=== PATIENT | male | born 1955 | race Caucasian/White ===

== ENCOUNTER 2018-09-18 08:38 | Outpatient (CLI) | payer MEDICARE | END 2018-09-18 08:39 | disposition home or self-care (01) | LOC: CP 08:38 | PROVIDERS: ATTEND Internal Medicine Critical Care Medicine | DX: R06.00 Dyspnea, unspecified (principal) | CPT/HCPCS: 94060; 94727; 94729 ==

== ENCOUNTER 2018-10-12 20:30 | Outpatient (CLI) | payer MEDICARE | END 2018-10-12 20:31 | disposition home or self-care (01) | LOC: SLEEPLAB 20:30 | PROVIDERS: ATTEND Internal Medicine Critical Care Medicine | DX: G47.33 Obstructive sleep apnea (adult) (pediatric) (principal); I11.9 Hypertensive heart disease without heart failure; R06.83 Snoring; G47.00 Insomnia, unspecified; G47.10 Hypersomnia, unspecified; I25.10 Atherosclerotic heart disease of native coronary artery without angina pectoris | CPT/HCPCS: 95811 ==

== ENCOUNTER 2018-12-14 22:40 | Emergency (ER) | payer MEDICARE ==
[2018-12-14] MEDS ORDERED: Proparacaine 0.5% Opth 15 ML BOT ONE (23:03)
[2018-12-14] MEDS ORDERED: Fluorescein Opthalmic Strip ONE (23:03)
== END 2018-12-14 23:18 | disposition home or self-care (01) ==
LOC: SCSER 22:40
DX: B02.9 Zoster without complications (principal); I25.10 Atherosclerotic heart disease of native coronary artery without angina pectoris; E78.5 Hyperlipidemia, unspecified; I10 Essential (primary) hypertension; F32.9 Major depressive disorder, single episode, unspecified; Z87.891 Personal history of nicotine dependence; Z79.899 Other long term (current) drug therapy; Z79.82 Long term (current) use of aspirin
CPT/HCPCS: 99283

== ENCOUNTER 2019-02-04 21:51 | Emergency (ER) | payer MEDICARE ==
[2019-02-04 22:29] LABS: #Basophils 0.1 thou/uL (0.0-0.2); #Eosinphils 0.2 thou/uL (0.0-0.7); #Lymphocytes 2.1 thou/uL (1.20-3.40); #Monocytes 0.4 thou/uL (0.11-0.59); #Neutrophils 6.6 thou/uL (1.40-6.50); %Basophils 0.9 % (0.0-1.0); %Eosinophils 2.4 % (0.0-10.0); %Monocytes 4.6 % (0.0-10.0); %Neutrophils 70.1 % (42.0-75.0); Hemoglobin 14.4 g/dL (14.0-18.0); Mean Corpuscular HGB CONC 34.8 g/dL (32.0-36.0); Mean Corpuscular Hemoglobin 33.4 pg (27.0-31.0); Mean Corpuscular Volume 95.9 fL (78.0-98.0); Mean Platelet Volume 6.4 fL (7.4-10.4); Platelet Count 158 thou/uL (130-400); RBC Distribution Width 12.9 % (11.5-14.5); White Blood Cell (WBC) Count 9.4 thou/uL (4.8-10.8)
[2019-02-04 22:43] LABS: ALT (SGPT) 19 U/L (8-55); AST (SGOT) 19 U/L (5-34); Albumin 3.8 g/dL (3.4-4.8); Alkaline Phosphatase 63 U/L (40-150); Anion Gap 14 mmol/L (10-20); BUN (Urea Nitrogen) 16 mg/dL (8.4-25.7); Bilirubin, Total 0.5 mg/dL (0.2-1.2); Calc. Creatinine Clearance 0 mL/min (70-130); Calcium 9.4 mg/dL (7.8-10.44); Carbon Dioxide 25 mmol/L (23-31); Chloride 103 mmol/L (98-107); Estimated GFR-MDRD 57; Globulin 3.7 g/dL (2.4-3.5); Glucose 127 mg/dL (80-115); Potassium 3.3 mmol/L (3.5-5.1); Protein, Total 7.5 g/dL (5.8-8.1); Sodium 139 mmol/L (136-145)
== END 2019-02-04 23:14 | disposition home or self-care (01) ==
LOC: SCSER 21:51
DX: R21 Rash and other nonspecific skin eruption (principal); I25.10 Atherosclerotic heart disease of native coronary artery without angina pectoris; E78.5 Hyperlipidemia, unspecified; I10 Essential (primary) hypertension; F32.9 Major depressive disorder, single episode, unspecified; Z87.891 Personal history of nicotine dependence; Z79.899 Other long term (current) drug therapy
CPT/HCPCS: 36415; 80053; 85025; 99283

== ENCOUNTER 2019-03-11 15:33 | Inpatient (IN) | payer MEDICARE ==
[2019-03-11 16:08] LABS: #Basophils 0.1 thou/uL (0.0-0.2); #Eosinphils 0.1 thou/uL (0.0-0.7); #Lymphocytes 0.7 thou/uL (1.20-3.40); #Monocytes 0.5 thou/uL (0.11-0.59); #Neutrophils 10.9 thou/uL (1.40-6.50); %Basophils 0.5 % (0.0-1.0); %Eosinophils 1.2 % (0.0-10.0); %Lymphocytes 5.2 % (21.0-51.0); %Monocytes 4.3 % (0.0-10.0); %Neutrophils 88.8 % (42.0-75.0); Hemoglobin 15.4 g/dL (14.0-18.0); Mean Corpuscular HGB CONC 33.6 g/dL (32.0-36.0); Mean Corpuscular Volume 98.3 fL (78.0-98.0); Mean Platelet Volume 7.3 fL (7.4-10.4); Platelet Count 162 thou/uL (130-400); Red Blood Cell (RBC) Count 4.67 mill/uL (4.70-6.10); White Blood Cell (WBC) Count 12.3 thou/uL (4.8-10.8)
--- NOTE | 2019-03-11 16:16 | RAD ---
RADIOGRAPH CHEST 1 VIEW: DATE: 03/11/2019 HISTORY: 63-year-old male with cough, fever, and chest pain FINDINGS: There is cardiomegaly. There is no evidence of airspace density, pulmonary edema, or pneumothorax. Th e lateral costophrenic angles are not effaced. Sternotomy wires. IMPRESSION: 1) No acute pulmonary findings. 2) cardiomegaly without congestive heart failure. 3) evidence of previous open-heart surgery.
[2019-03-11 16:23] LABS: ALT (SGPT) 26 U/L (8-55); AST (SGOT) 24 U/L (5-34); Albumin 4.1 g/dL (3.4-4.8); Alkaline Phosphatase 72 U/L (40-150); Anion Gap 16 mmol/L (10-20); BUN (Urea Nitrogen) 19 mg/dL (8.4-25.7); Bilirubin, Total 0.7 mg/dL (0.2-1.2); Calc. Creatinine Clearance 0 mL/min (70-130); Calcium 9.5 mg/dL (7.8-10.44); Carbon Dioxide 24 mmol/L (23-31); Chloride 101 mmol/L (98-107); Estimated GFR-MDRD 56; Globulin 4.1 g/dL (2.4-3.5); Glucose 113 mg/dL (80-115); Potassium 3.4 mmol/L (3.5-5.1); Protein, Total 8.2 g/dL (5.8-8.1); Sodium 138 mmol/L (136-145)
[2019-03-11 16:51] LABS: Bilirubin Negative (Negative); Blood, Urine Small (Negative); Clarity Clear (Clear); Glucose, Urine (Dipstick) Negative (Negative); Leukocyte Negative (Negative); Nitrite Negative (Negative); Protein, Urine (Dipstick) Negative (Neg-Trace); Urobilinogen 0.2 mg/dL (Less than 2)
[2019-03-11 16:59] LABS: Bacteria/HPF None Seen HPF (None Seen); Squamous Epithelial 0-3 HPF (0-3); WBC/HPF 0-3 HPF (0-3)
[2019-03-11] MEDS ORDERED: cefTRIAXone\\ROCEPHIN 2 GM VIAL ONE (16:59)
[2019-03-11] MEDS ORDERED: Azithromycin 500 MG VIAL ONE (16:59)
[2019-03-11] MEDS ORDERED: Sodium Chloride 0.9% 100 ML ONE (16:59)
[2019-03-11] MEDS ORDERED: Ketorolac Tromethamine 30 MG/ML VIAL ONE (17:17)
[2019-03-11] MEDS ORDERED: Ondansetron PF 4 MG/2 ML Vial ONE (17:33)
[2019-03-11 18:48] VITALS: BMI 38.1
[2019-03-11] MEDS ORDERED: Sodium Chloride 0.9% 1,000 ML IV SCH (19:30)
[2019-03-11] MEDS ORDERED: Senokot S 8.6-50 MG TAB PO PRN (20:47)
[2019-03-11] MEDS ORDERED: Loperamide HCl 2 MG CAP PO PRN ×2 (20:47)
[2019-03-11 20:58] LABS: Lactic Acid 1.8 mmol/L (0.5-2.2)
[2019-03-11] MEDS: Pramipexole Di-HCl 0.25 MG TAB PO SCH (21:21)
[2019-03-11] MEDS: Aspirin Chewable 81 MG TAB PO SCH (21:22)
[2019-03-11] MEDS: Famotidine 20 MG TAB PO SCH (21:22)
[2019-03-11] MEDS: Temazepam 15 MG CAP PO SCH (21:22)
[2019-03-11] MEDS: Acetaminophen 325 MG TAB PO PRN (21:22)
[2019-03-11] MEDS: Lactated Ringer's 1,000 ML IV SCH (23:05)
--- NOTE | 2019-03-11 23:24 | PDOC.FPRHP ---
- History of Present Illness Chief Complaint: Sepsis History of Present Illness: Pt is a 63 yo M with history of HLD, HTN, COPD, and MALCOM who presents with fever of 1 day. He said he started feeling bad yesterday night with fever, chills, and nausea. He woke up this morning and was having some SOB and edema. Around 2: 40 in the afternoon his daughter checked his temp, which was 102.2. She then took him up to the ER. They returned from a cruise to [place] this past Saturday. Saturday e visit with a relative who was recently discharged from the hospital after being treated for Strep bacteremia. He finished his relative finished their last dose of Abx today. ED Course: He was seen at an outsided ER and given Tylenol and Ibuprofen and temp increased to 102.9. Before transfer, he received Azithromycin and Rocephin. As well as, zofran for the nausea. - Allergies/Adverse Reactions Allergies Allergy/AdvReac Type Severity Reaction Status Date / Time lisinopril Allergy Intermediate Verified 03/11/19 19:20 morphine Allergy Intermediate Rash Verified 03/11/19 19:20 - Home Medications Medication Instructions Recorded Confirmed Type Allopurinol 300 mg PO DAILY 03/11/19 03/11/19 History Amlodipine [Norvasc] 5 mg PO DAILY 03/11/19 03/11/19 History Aspirin [Children's Aspirin] 81 mg PO HS 03/11/19 03/11/19 History Carvedilol [Coreg] 25 mg PO BID 03/11/19 03/11/19 History Clopidogrel Bisulfate [Plavix] 75 mg PO DAILY 03/11/19 03/11/19 History Ezetimibe [Zetia] 10 mg PO HS 03/11/19 03/11/19 History Hydrochlorothiazide 25 mg PO DAILY 03/11/19 03/11/19 History Pitavastatin Calcium [Livalo] 2 mg PO HS 03/11/19 03/11/19 History Potassium 99 mg PO DAILY 03/11/19 03/11/19 History Pramipexole Di-HCl [Pramipexole ER] 0.75 mg PO HS 03/11/19 03/11/19 History Temazepam [Restoril] 15 mg PO HS 03/11/19 03/11/19 History levOCARNitine Tartrate 500 mg PO HS 03/11/19 03/11/19 History [L-Carnitine] - History PMHx: HLD, Gout, PVD, Restless leg, HTN, COPD, MALCOM PSHx: Stents placed in leg (06/07), Stents placed in neck (06/08, 07/08), Brain surgery at 17 FHx: Non-contributory Social: He smoked 15 years ago for about 6-7 years 2PPD. He rarely drinks and no recreational drugs. - Review of Systems General: reports: fever/chills, night sweats, fatigue Eyes: denies: vision changes ENT: denies: nasal congestion, rhinorrhea Respiratory: reports: shortness of breath. denies: cough Cardiovascular: reports: edema. denies: chest pain Gastrointestinal: reports: nausea. denies: vomiting, diarrhea Genitourinary: denies: dysuria, polyuria Skin: denies: rashes, itching Musculoskeletal: denies: pain Neurological: reports: weakness - Vital signs BP: 99/62 HR: 108 RR: 20 Tmax: 100.1 Pox: 93% on RA Wt: 120 kg - Physical Exam Constitutional: NAD, awake, alert and oriented HEENT: normocephalic and atraumatic, PERRLA, EOMI, MMM, oropharynx clear Neck: supple, no LAD Chest: no-tender to palpation Heart: RRR, normal S1/S2, pulses present Lungs: other (In some respiratory distress. Decreased breath sounds throughout.) Abdomen: soft, non-tender, bowel sounds present Musculoskeletal: normal structure, normal tone Neurological: no focal deficit, CN II-XII intact Skin: no rash/lesions Heme/Lymphatic: no unusual bruising or bleeding Psychiatric: normal mood and affect FMR H&P: Results - Labs Result Diagrams: 03/12/19 05:06 03/12/19 05:06 Lab results: WBC 12.3 thou/uL (4.8-10.8) H 03/11/19 16:00 Hgb 15.4 g/dL (14.0-18.0) 03/11/19 16:00 Hct 45.9 % (42.0-52.0) 03/11/19 16:00 MCV 98.3 fL (78.0-98.0) H 03/11/19 16:00 Plt Count 162 thou/uL (130-400) 03/11/19 16:00 Neutrophils % 88.8 % (42.0-75.0) H 03/11/19 16:00 Sodium 138 mmol/L (136-145) 03/11/19 16:00 Potassium 3.4 mmol/L (3.5-5.1) L 03/11/19 16:00 Chloride 101 mmol/L (98-107) 03/11/19 16:00 Carbon Dioxide 24 mmol/L (23-31) 03/11/19 16:00 BUN 19 mg/dL (8.4-25.7) 03/11/19 16:00 Creatinine 1.29 mg/dL (0.7-1.3) 03/11/19 16:00 Glucose 113 mg/dL (80-115) 03/11/19 16:00 Lactic Acid 1.7 mmol/L (0.5-2.2) 03/11/19 22:27 Calcium 9.5 mg/dL (7.8-10.44) 03/11/19 16:00 Total Bilirubin 0.7 mg/dL (0.2-1.2) 03/11/19 16:00 AST 24 U/L (5-34) 03/11/19 16:00 ALT 26 U/L (8-55) 03/11/19 16:00 Alkaline Phosphatase 72 U/L (40-150) 03/11/19 16:00 Serum Total Protein 8.2 g/dL (5.8-8.1) H 03/11/19 16:00 Albumin 4.1 g/dL (3.4-4.8) 03/11/19 16:00 Urine Ketones Negative mg/dL (Negative) 03/11/19 16:41 Urine Blood Small (Negative) A 03/11/19 16:41 Urine Nitrite Negative (Negative) 03/11/19 16:41 Ur Leukocyte Esterase Negative (Negative) 03/11/19 16:41 Urine RBC 4-6 HPF (0-3) A 03/11/19 16:41 Urine WBC 0-3 HPF (0-3) 03/11/19 16:41 Ur Squamous Epith Cells 0-3 HPF (0-3) 03/11/19 16:41 Urine Bacteria None Seen HPF (None Seen) 03/11/19 16:41 FMR H&P: A/P - Problem List (1) Sepsis Current Visit: Yes Status: Acute Code(s): A41.9 - SEPSIS, UNSPECIFIED ORGANISM (2) Restless leg Current Visit: Yes Status: Acute (3) HTN (hypertension) Current Visit: Yes Status: Acute Code(s): I10 - ESSENTIAL (PRIMARY) HYPERTENSION - Plan Pt is a 63 yo M with history of HLD, HTN, COPD, and MALCOM who presents with fever of 1 day. 1. Sepsis TMax: 102.9 * BCx and UCx obtained * WBC: 12.3 * Continued Azithro and Rocephin * Trending lactate 2. Restless Leg Uncomfortable at presentation * Continued home pramipexole and Tenazepam 3. HTN: BP: 99/62 * Holding home meds due to hypotension Diet: Regular Code Status: Full DVT Prophylaxis: Lovenox Dispo: Inpt, will need to identify source of sepsis and treat. FMR H&P: Upper Level - Pertinent history 63 yo M w/ PMH of HTN, CAD, COPD, MALCOM, gout, CHF presents for 1 day history of fever. Pt reports associated dry cough. Denies NVDC. No cp, sob, wheezing. Pt denies skin changes, rashes. Pt does have history of shingles most recent episode was approx 2 months ago. No residual pain. Also reports most recent gout flair involved b/l LE and was approx 2 weeks ago. Otherwise, pt has no complaints. - Pertinent findings ROS: As above PE: Gen: NAD, pt laying in bed HEENT: NCAT, PERRLA, EOMI CV: Tachycardic, RR, No MRG Resp: Lungs CTA bl Abd: Soft NTND bsx4 Neuro: No focal deifcit Extremities: edema b/l LE Skin: No rashes, erythema - Plan Date/Time: 03/11/19 2492 ICelso DO, have evaluated this patient and agree with findings/ plan as outlined by internet security specialist resident. Pertinent changes/additions are listed here. 1) Sepsis likely 2/2 atypical pna - given symptoms and recent sick contact exposure with bronchitis - Procal .61 - elevated WBC - cont rocephin and azithromycin 2) HTN: - hold medications 3) Gout: - cont home meds 4) MALCOM: - nightly CPAP Dispo: Stable, will admit to IP and continue IV abx. COnt IVF for now, ron jewell later tomorrow if pt pulse rate declines and BP improves. Await cultures. PPX: Lovenox PCP: Noah Colónum - Attending - Attending Attestation Date/Time: 03/12/19 0161 I personally evaluated the patient and discussed the management with Dr. Skinner and Jose L. I agree with and repeated the History, Examination, Assessment and Plan documented above with any addition or exceptions noted below. No firm source. Continue antibiotics and await cultures.
[2019-03-12 05:24] LABS: #Eosinphils 0.1 thou/uL (0.0-0.7); #Lymphocytes 0.6 thou/uL (1.20-3.40); #Monocytes 0.6 thou/uL (0.11-0.59); #Neutrophils 7.7 thou/uL (1.40-6.50); %Basophils 0.2 % (0.0-1.0); %Eosinophils 0.7 % (0.0-10.0); %Lymphocytes 6.6 % (21.0-51.0); %Monocytes 6.5 % (0.0-10.0); Hemoglobin 13.4 g/dL (14.0-18.0); Mean Corpuscular HGB CONC 33.2 g/dL (32.0-36.0); Mean Corpuscular Hemoglobin 32.8 pg (27.0-31.0); Mean Corpuscular Volume 98.9 fL (78.0-98.0); Mean Platelet Volume 7.4 fL (7.4-10.4); Platelet Count 124 thou/uL (130-400); RBC Distribution Width 13.5 % (11.5-14.5); Red Blood Cell (RBC) Count 4.07 mill/uL (4.70-6.10)
[2019-03-12 05:54] LABS: ALT (SGPT) 20 U/L (8-55); AST (SGOT) 22 U/L (5-34); Albumin 3.3 g/dL (3.4-4.8); Alkaline Phosphatase 52 U/L (40-150); Anion Gap 14 mmol/L (10-20); BUN (Urea Nitrogen) 25 mg/dL (8.4-25.7); Bilirubin, Total 0.6 mg/dL (0.2-1.2); Calc. Creatinine Clearance 100 mL/min (70-130); Calcium 7.9 mg/dL (7.8-10.44); Carbon Dioxide 20 mmol/L (23-31); Chloride 105 mmol/L (98-107); Estimated GFR-MDRD 56; Globulin 3.1 g/dL (2.4-3.5); Glucose 132 mg/dL (80-115); Protein, Total 6.4 g/dL (5.8-8.1); Sodium 136 mmol/L (136-145)
[2019-03-12 05:59] LABS: Potassium 2.8 mmol/L (3.5-5.1)
[2019-03-12] MEDS ORDERED: Potassium Chloride 20 MEQ TAB PO SCH ×2 (06:15→12:00)
[2019-03-12] MEDS: Lactated Ringer's 1,000 ML IV SCH ×3 (06:50→22:24)
[2019-03-12] MEDS ORDERED: Magnesium Sulfate 2 GM in Sodium Chloride 0.9% 100 ML IVPB SCH (07:00)
[2019-03-12] MEDS ORDERED: Magnesium 2 GM/50 ML 2 GM in Premix Bag 1 BAG IVPB SCH (07:15)
[2019-03-12] MEDS: Famotidine 20 MG TAB PO SCH ×2 (08:09→20:48)
[2019-03-12] MEDS: Clopidogrel Bisulfate 75 MG TAB PO SCH (08:09)
[2019-03-12] MEDS: Allopurinol 300 MG TAB PO SCH (08:09)
[2019-03-12] MEDS: Potassium Chloride 8 MEQ TAB PO SCH (08:09)
--- NOTE | 2019-03-12 08:32 | PDOC.FM ---
- Subjective Subjective: reports feeling "much much better". Reports this morning that his main symptoms have been subjective fevers, and abdominal discomfort. he has also had a mild cough [place]. since admission pt has had 2-3 episodes of diarrhea. - Objective MAR Reviewed: Yes Vital Signs & Weight: Vital Signs (12 hours) Temp Pulse Resp BP Pulse Ox 03/12/19 07:54 98.3 F 87 16 104/66 96 03/12/19 05:26 99.2 F 96 20 112/66 92 L 03/11/19 23:09 99.5 F 95 20 102/64 90 L Weight Weight 120.519 kg I&O: 03/11/19 03/12/19 03/13/19 06:59 06:59 06:59 Intake Total 1200 Balance 1200 Result Diagrams: 03/12/19 05:06 03/12/19 05:06 Phys Exam - Physical Examination Constitutional: NAD HEENT: moist MMs, sclera anicteric Neck: supple, full ROM Respiratory: no wheezing, clear to auscultation bilateral Cardiovascular: RRR, no significant murmur Gastrointestinal: soft, non-tender, no distention, positive bowel sounds Musculoskeletal: pulses present Neurological: normal sensation, moves all 4 limbs Psychiatric: normal affect, A&O x 3 Skin: no rash, normal turgor, cap refill <2 seconds Dx/Plan (1) Sepsis Code(s): A41.9 - SEPSIS, UNSPECIFIED ORGANISM Status: Acute (2) CAD (coronary artery disease) Code(s): I25.10 - ATHSCL HEART DISEASE OF [place] CORONARY ARTERY W/O ANG PCTRS Status: Acute (3) MALCOM (obstructive sleep apnea) Code(s): G47.33 - OBSTRUCTIVE SLEEP APNEA (ADULT) (PEDIATRIC) Status: Acute (4) HLD (hyperlipidemia) Code(s): E78.5 - HYPERLIPIDEMIA, UNSPECIFIED Status: Acute (5) Gout Code(s): M10.9 - GOUT, UNSPECIFIED Status: Acute (6) HTN (hypertension) Code(s): I10 - ESSENTIAL (PRIMARY) HYPERTENSION Status: Acute (7) Restless leg Status: Acute - Plan Plan: sepsis, likely 2/2 viral gastroenteritis A- source not obvious however considering pts recent travel hx on cruise and abdominal discomfort/diarrhea viral gastroenteritis is most likely. Pt also has dry cough with no congestion but CXR shows no acute process. procal is borderline low and LA x3 has been unimpressive. SIRS positive may be partially attributed to some hypovolemia on presentation as well. P- transition to PO ABX -continue LR 125ml/hr -f/u BCx -c.diff, fecal lactoferrin, norovirus, rotavirus CAD s/p CABG A- stable, pt is currently on plavix, statin, coreg, thiazide, and ASA P- continue home meds, will only restart BP meds as tolerated HTN -hold home meds until pt demonstrates multiple normal BPs Hypokalemia -replace as necessary HLD, Gout, Restless leg syndrome, PVD, COPD, MALCOM -stable, continue home meds and CPAP CODE: FULL DVT ppx: home plavix Addendum - Attending - Attending Attestation Date/Time: 03/12/19 5533 I personally evaluated the patient and discussed the management with Dr. Farrell. I agree with the History, Examination, Assessment and Plan documented above with any addition or exceptions noted below. Feeling better. Tmax 100.8. Diarrhea noted, stool studies initiated. Hypokalemia, Hypomagnesemia to be replaced. SIRS improved. Continue Eval and mgt.
[2019-03-12] MEDS ORDERED: Enoxaparin Sodium 30 MG/0.3 ML SYRINGE SC SCH (09:00)
[2019-03-12] MEDS ORDERED: Amlodipine 5 MG TAB PO SCH (09:00)
[2019-03-12] MEDS ORDERED: cefTRIAXone\\ROCEPHIN 1 GM in Sodium Chloride 0.9% 100 ML IVPB SCH (16:00)
[2019-03-12] MEDS ORDERED: Azithromycin 500 MG in Sodium Chloride 0.9% 250 ML 250 ML IVPB SCH (17:00)
[2019-03-12] MEDS: Aspirin Chewable 81 MG TAB PO SCH (20:48)
[2019-03-12] MEDS: Pramipexole Di-HCl 0.25 MG TAB PO SCH (20:49)
[2019-03-12] MEDS: Acetaminophen 325 MG TAB PO PRN (20:50)
[2019-03-12] MEDS: Temazepam 15 MG CAP PO SCH (20:55)
[2019-03-12] MEDS ORDERED: Ezetimibe 10 MG TAB PO SCH (21:00)
[2019-03-12] MEDS ORDERED: Atorvastatin Calcium 10 MG TAB PO SCH (21:00)
[2019-03-12] MEDS ORDERED: Non-Formulary Item 1 EACH (Pitavastatin Calcium 2 MG) PO SCH (21:00)
--- NOTE | 2019-03-13 06:56 | PDOC.FM ---
- Subjective Subjective: Pt continues to feel improved, denies subjective fevers/chills, denies diarhea, endorses continued but improved abdominal discomfort. - Objective Vital Signs & Weight: Weight Weight 120.519 kg I&O: 03/11/19 03/12/19 03/13/19 06:59 06:59 06:59 Intake Total 1200 2850 Balance 1200 2850 Result Diagrams: 03/13/19 06:35 03/13/19 06:35 Phys Exam - Physical Examination Constitutional: NAD HEENT: moist MMs, sclera anicteric Neck: no JVD, supple Respiratory: no wheezing, clear to auscultation bilateral Cardiovascular: RRR, no significant murmur Gastrointestinal: soft, non-tender Musculoskeletal: no edema, pulses present Neurological: normal sensation, moves all 4 limbs Psychiatric: normal affect, A&O x 3 Skin: no rash, normal turgor Dx/Plan (1) Sepsis Code(s): A41.9 - SEPSIS, UNSPECIFIED ORGANISM Status: Acute (2) CAD (coronary artery disease) Code(s): I25.10 - ATHSCL HEART DISEASE OF [place] CORONARY ARTERY W/O ANG PCTRS Status: Acute (3) MALCOM (obstructive sleep apnea) Code(s): G47.33 - OBSTRUCTIVE SLEEP APNEA (ADULT) (PEDIATRIC) Status: Acute (4) HLD (hyperlipidemia) Code(s): E78.5 - HYPERLIPIDEMIA, UNSPECIFIED Status: Acute (5) Gout Code(s): M10.9 - GOUT, UNSPECIFIED Status: Acute (6) HTN (hypertension) Code(s): I10 - ESSENTIAL (PRIMARY) HYPERTENSION Status: Acute (7) Restless leg Status: Acute - Plan Plan: sepsis, likely 2/2 viral gastroenteritis A- source not obvious however considering pts recent travel hx on cruise and abdominal discomfort/diarrhea viral gastroenteritis is most likely. Pt also has dry cough with no congestion but CXR shows no acute process. procal is borderline low and LA x3 has been unimpressive. SIRS positive may be partially attributed to some hypovolemia on presentation as well. Negative rotavirus, c.diff, and fecal lactoferrin P- continue azithromycin and rocephin, will DC after BCx show NG@48hrs -continue IVF -f/u BCx -f/u norovirus CAD s/p CABG A- stable, pt is currently on plavix, statin, coreg, thiazide, and ASA P- continue home meds, will only restart BP meds as tolerated HTN -hold home meds until pt demonstrates multiple normal BPs Hypokalemia -replace as necessary HLD, Gout, Restless leg syndrome, PVD, COPD, MALCOM -stable, continue home meds and CPAP CODE: FULL DVT ppx: home plavix dispo: likely home today Addendum - Attending - Attending Attestation Date/Time: 03/13/19 1021 I personally evaluated the patient and discussed the management with Dr. Farrell. I agree with the History, Examination, Assessment and Plan documented above with any addition or exceptions noted below. Sx's resolved. Vitals stable stool studies negative except Lactoferrin. November d/ c home, f/u final c&S as op.
[2019-03-13 07:17] LABS: #Eosinphils 0.1 thou/uL (0.0-0.7); #Lymphocytes 1.3 thou/uL (1.20-3.40); #Monocytes 0.8 thou/uL (0.11-0.59); #Neutrophils 3.9 thou/uL (1.40-6.50); %Basophils 0.3 % (0.0-1.0); %Eosinophils 2.1 % (0.0-10.0); %Lymphocytes 20.8 % (21.0-51.0); %Monocytes 12.4 % (0.0-10.0); %Neutrophils 64.4 % (42.0-75.0); Hemoglobin 12.5 g/dL (14.0-18.0); Mean Corpuscular HGB CONC 32.7 g/dL (32.0-36.0); Mean Corpuscular Hemoglobin 33.2 pg (27.0-31.0); Mean Platelet Volume 7.5 fL (7.4-10.4); Platelet Count 109 thou/uL (130-400); RBC Distribution Width 13.5 % (11.5-14.5); Red Blood Cell (RBC) Count 3.77 mill/uL (4.70-6.10); White Blood Cell (WBC) Count 6.1 thou/uL (4.8-10.8)
[2019-03-13 07:34] LABS: ALT (SGPT) 19 U/L (8-55); AST (SGOT) 25 U/L (5-34); Alkaline Phosphatase 45 U/L (40-150); Anion Gap 10 mmol/L (10-20); BUN (Urea Nitrogen) 11 mg/dL (8.4-25.7); Bilirubin, Total 0.4 mg/dL (0.2-1.2); Calc. Creatinine Clearance 135 mL/min (70-130); Carbon Dioxide 23 mmol/L (23-31); Chloride 105 mmol/L (98-107); Estimated GFR-MDRD 78; Globulin 2.8 g/dL (2.4-3.5); Glucose 95 mg/dL (80-115); Magnesium 1.8 mg/dL (1.6-2.6); Potassium 3.2 mmol/L (3.5-5.1); Protein, Total 5.8 g/dL (5.8-8.1); Sodium 135 mmol/L (136-145)
[2019-03-13] MEDS: Allopurinol 300 MG TAB PO SCH (08:40)
[2019-03-13] MEDS: Lactated Ringer's 1,000 ML IV SCH (08:40)
[2019-03-13] MEDS: Potassium Chloride 8 MEQ TAB PO SCH (08:40)
[2019-03-13] MEDS: Famotidine 20 MG TAB PO SCH (08:40)
[2019-03-13] MEDS: Clopidogrel Bisulfate 75 MG TAB PO SCH (08:40)
[2019-03-13] MEDS ORDERED: Potassium Chloride 20 MEQ TAB PO SCH ×2 (11:15→11:45)
[2019-03-13 11:43] VITALS: BP 122/76; TEMP 98.1
--- NOTE | 2019-03-14 05:48 | DIS ---
DATE OF ADMISSION: 03/11/2019 DATE OF DISCHARGE: 03/13/2019 RESIDENT: Shaun Farrell MD ADMITTING ATTENDING: Aroldo Rico MD DISCHARGE ATTENDING: Shaun Young MD CONSULTS: None. PROCEDURES: On 03/11/2019, chest x-ray. Impression: No acute pulmonary findings, cardiomegaly without congestive heart failure, evidence of previous open-heart surgery. DISCHARGE MEDICATIONS: 1. Potassium 99 mg tablet p.o. daily resumed at home. 2. L-carnitine 500 mg p.o. at bedtime. 3. Aspirin 81 mg p.o. at bedtime. 4. Zetia 10 mg p.o. at bedtime. 5. Restoril 15 mg p.o. at bedtime. 6. Allopurinol 300 mg p.o. daily. 7. Pramipexole extended release 0.75 mg p.o. at bedtime. 8. Pitavastatin 2 mg p.o. at bedtime. 9. Amlodipine 5 mg p.o. daily. 10. Plavix 75 mg p.o. daily. 11. Carvedilol 25 mg p.o. b.i.d. The patient instructed to hold medication for that day if his systolic blood pressure at home is below 100. 12. Hydrochlorothiazide 25 mg p.o. daily, held until the patient is seen by PCP. DISCONTINUED MEDICATIONS: As listed above, hydrochlorothiazide 25 mg p.o. daily, held until the patient is seen by primary care provider. PRIMARY DIAGNOSIS: Sepsis secondary to viral gastroenteritis. SECONDARY DIAGNOSES: Coronary artery disease, status post coronary artery bypass grafting; hypertension; hypokalemia; hyperlipidemia; hypomagnesemia; gout; restless legs syndrome; peripheral vascular disease; chronic obstructive pulmonary disease; obstructive sleep apnea. HISTORY OF PRESENT ILLNESS/HOSPITAL COURSE: This is a 63-year-old male who presented to the ER with complaints of subjective fevers for 1 day. The patient also had abdominal pain, new-onset diarrhea x3. The patient was admitted as he was meeting SIRS criteria, and it was felt that gastroenteritis was the likely source of infection. Overall, the patient did well. He was started on a brief course of azithromycin and Rocephin, which were eventually discontinued as the patient was quite well-appearing and had no evidence of bacterial infection. Furthermore, it was reassuring that the patient had low procalcitonin and lactic acid and showed great improvement with IV fluids. Stool studies were positive for fecal lactoferrin, but negative for rotavirus. Considering the patient's quickly recovery, the patient was deemed stable for discharge and discharged home with plans to follow up with primary care provider, and the patient was also placed on a followup list to follow up on resulted 48-hour blood cultures and norovirus and stool cultures. DISPOSITION: Stable. DISCHARGE INSTRUCTIONS: Location: Home. Activity: As tolerated. Diet: Heart healthy. Followup with Dr. Diaz in 1 to 2 weeks. It should be noted that the patient's home hydrochlorothiazide dose was held as the patient had some borderline low blood pressures in hospital. The patient instructed to follow up with primary care physician for restarting home hydrochlorothiazide. Job ID: [id number]
[2019-03-16 14:09] LABS: Norovirus GI Negative (Negative); Norovirus GII Positive (Negative)
== END 2019-03-13 12:53 | disposition home or self-care (01) | DRG 872 ==
LOC: SCSER 15:33 → T4-B 18:29
PROVIDERS: ADMIT Emergency Medicine; ATTEND Emergency Medicine
DX: A41.89 Other specified sepsis (principal); I25.10 Atherosclerotic heart disease of native coronary artery without angina pectoris; E78.5 Hyperlipidemia, unspecified; E78.00 Pure hypercholesterolemia, unspecified; F32.9 Major depressive disorder, single episode, unspecified; I10 Essential (primary) hypertension; J44.9 Chronic obstructive pulmonary disease, unspecified; G47.33 Obstructive sleep apnea (adult) (pediatric); M10.9 Gout, unspecified; I73.9 Peripheral vascular disease, unspecified; G25.81 Restless legs syndrome; A08.4 Viral intestinal infection, unspecified; E87.6 Hypokalemia; E83.42 Hypomagnesemia; Z95.1 Presence of aortocoronary bypass graft; Z87.891 Personal history of nicotine dependence; Z88.6 Allergy status to analgesic agent; Z88.8 Allergy status to other drugs, medicaments and biological substances
CPT/HCPCS: 36415; 71045; 80053; 81003; 81015; 83605; 83630; 83735; 84145; 85025; 86403; 87040; 87045; 87046; 87081; 87324; 87430; 87449; 87798; 87804; 93005; 94760; 96361; 96365; 96367; 96375; J0456; J0696; J1650; J1885; J2405; J3475; J3490; J7050

== ENCOUNTER 2020-05-31 10:09 | Outpatient (CLI) | payer MEDICARE ==
--- NOTE | 2020-05-31 13:14 | PET ---
PET W CT Skull to Mid Thigh History: Solitary pulmonary nodule Comparison: CT angiogram chest May 16, 2020 Findings: PET CT from skull-mid thigh was performed after the intravenous administration 10.86 mCi F- 18 FDG. Similar size of the 2.8 cm in transverse dimension mass in the posterior basal segment right lower lo be with SUV max 8.9. No other FDG avid pulmonary nodule. No FDG avid or enlarged mediastinal lymph nodes. No pericardial effusion. No supraclavicular, axillary nor internal mammary adenopathy. Mildly FDG avid calcific tendinosis left rotator cuff. Non-FDG avid calcific tendinosis of the right rotator cuff. Calcific tendinosis is not suspicious for metastatic disease. 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 No cervical adenopathy. The adrenal glands are normal. No metastatic disease within the abdomen or pelvis. The liver, spleen, retroperitoneum are without en larged or FDG avid lymph nodes. No osseous metastatic disease. No rib fracture. Aortoiliac contour is normal. High-grade calcifications within both right and left iliac arteries wit h right external iliac arterial stent. Small fat containing periumbilical hernia. Diffuse hepatic steatosis. Impression: No significant growth of the 2.8 cm FDG avid right lower lobe posterior basal segment kelsey itary pulmonary nodule indicative of malignancy. No metastatic disease.
== END 2020-05-31 10:10 | disposition home or self-care (01) ==
LOC: PET 10:09
PROVIDERS: ATTEND Internal Medicine Critical Care Medicine
DX: R91.1 Solitary pulmonary nodule (principal)
CPT/HCPCS: 78815; A9552

== ENCOUNTER 2020-06-19 20:20 | Inpatient (IN) | payer MEDICARE ==
[2020-06-19] MEDS ORDERED: Fentanyl 100 MCG/2 ML VIAL ONE (20:32)
[2020-06-19] MEDS ORDERED: Midazolam HCl 5 mg/ml Vial ONE (20:36)
[2020-06-19 21:20] LABS: #Lymphocytes 0.4 thou/uL (1.20-3.40); #Monocytes 0.2 thou/uL (0.11-0.59); #Neutrophils 5.4 thou/uL (1.40-6.50); %Eosinophils 0.7 % (0.0-10.0); %Lymphocytes 6.2 % (21.0-51.0); %Monocytes 3.5 % (0.0-10.0); %Neutrophils 89.6 % (42.0-75.0); Hemoglobin 14.3 g/dL (14.0-18.0); Mean Corpuscular HGB CONC 34.2 g/dL (32.0-36.0); Mean Corpuscular Hemoglobin 34.7 pg (27.0-31.0); Platelet Count 103 thou/uL (130-400); Red Blood Cell (RBC) Count 4.13 mill/uL (4.70-6.10); White Blood Cell (WBC) Count 6.1 thou/uL (4.8-10.8)
[2020-06-19] MEDS ORDERED: Azithromycin 500 MG VIAL ONE (21:20)
[2020-06-19] MEDS ORDERED: Acetaminophen 650 MG Suppository ONE (21:20)
[2020-06-19] MEDS ORDERED: Cefepime 2 GM VIAL ONE (21:20)
[2020-06-19] MEDS ORDERED: Vancomycin 1 GM/200 ML BAG ONE (21:20)
[2020-06-19 21:40] LABS: ALT (SGPT) 23 U/L (8-55); AST (SGOT) 36 U/L (5-34); Albumin 3.3 g/dL (3.4-4.8); Alkaline Phosphatase 76 U/L (40-110); Anion Gap 14 mmol/L (10-20); BUN (Urea Nitrogen) 25 mg/dL (8.4-25.7); Bilirubin, Total 0.7 mg/dL (0.2-1.2); Calc. Creatinine Clearance 0 mL/min (70-130); Carbon Dioxide 21 mmol/L (23-31); Chloride 105 mmol/L (98-107); Globulin 3.4 g/dL (2.4-3.5); Glucose 132 mg/dL (80-115); Lipase 36 U/L (8-78); Potassium 4.4 mmol/L (3.5-5.1); Protein, Total 6.7 g/dL (5.8-8.1); Sodium 136 mmol/L (136-145)
[2020-06-19 21:51] LABS: Actual Bicarbonate (HCO3a) 20.5 mEq/L (22-28); Analyzer IN Cardio ER; Base Excess (BEa) -5.8 mEq/L (-2.0 to +3.0); CO2 Tension 43.2 mmHg (35.0-45.0); Calcium, Ionized (arterial) 1.12 mmol/L (1.12-1.30); Carboxyhemoglobin (COHb) 0.5 gm% (0.0-3.0); Hemoglobin (Hb) 14.6 g/dL (14.0-18.0); Potassium - ABG Lab 3.96 mmol/L (3.70-5.30); pH, Arterial 7.29 (7.35-7.45)
[2020-06-19 21:52] LABS: O2 Tension (PaO2), arterial 56.6 mmHg (> 80.0)
[2020-06-19 21:53] LABS: Puncture Site RRA
[2020-06-19] MEDS ORDERED: Dexamethasone 10 MG/ML VIAL ONE (21:55)
[2020-06-19 22:01] LABS: CKMB 3.3 ng/mL (0-6.6)
--- NOTE | 2020-06-19 22:18 | RAD ---
PORTABLE CHEST; Date: 06/19/2020 PROVIDED CLINICAL HISTORY: COVID-positive, respiratory insufficiency. FINDINGS: Comparison with 03/15/2020. The cardiac silhouette appears enlarged, which may be at least partially on the basis of portable chastity hnique. Endotracheal tube is noted, tip of which remains in the region of the thoracic inlet. Enteric catheter is noted, tip of which overlies left upper quadrant. Extensive bilateral air space disease. The supine nature of the examination is not sensitive for detection of pleural fluid or pneumothorax , without evidence for such. IMPRESSION: Diffuse bilateral air space disease, compatible with pneumonia in the appropriate clinical context. POS: TIFFANY
[2020-06-19 22:37] LABS: Bilirubin Negative (Negative); Blood, Urine Negative (Negative); Clarity Turbid (Clear); Glucose, Urine (Dipstick) Normal (Negative); Ketone, Urine Negative (Negative); Leukocyte Negative Leu/uL (Negative); Nitrite Negative (Negative); Protein, Urine (Dipstick) 300 mg/dL (Neg-Trace); Specific Gravity, Urine 1.036 (1.002-1.036); Squamous Epithelial 0-3 HPF (0-3); Urobilinogen Normal mg/dL (Less than 2)
[2020-06-19] MEDS ORDERED: Acetaminophen 650 MG Suppository PR PRN (22:37)
[2020-06-19] MEDS ORDERED: Ondansetron PF 4 MG/2 ML Vial IVP PRN (22:37)
[2020-06-19] MEDS ORDERED: Ondansetron ODT 4 MG TAB PO PRN (22:37)
--- NOTE | 2020-06-19 22:38 | PDOC.FPRHP ---
- History of Present Illness Chief Complaint: resp distress History of Present Illness: This is a 64yo M with PMH significant for CAD s/p CABG and stents who presents to the ER today for respiratory distress. He started having symptoms of COVID starting last Saturday or Saturday with worsening symptoms on . He has had alternating fever and chills with highest temperature at home being 102.7. He was swabbed on Saturday and resulted positive for COVID today. His daughter called EMS today for SOB and difficulty breathing. Home O2 sat was 70% at home on RA. He went to lie down and put on his CPAP and she went to check on him he was less responsive and repeat SpO2 was 60%. When EMS got there they tried CPAP but patient woke up more combative and was intubated in the field. Patient lives at home with his daughter. ED Course: NS 30ml/kg, Duoneb, lovenox, norepi, fentanyl, azithro 500mg IV, dexamethasone 10mg IV, vanc, tylenol, cefepime, midazolam - Allergies/Adverse Reactions Allergies Allergy/AdvReac Type Severity Reaction Status Date / Time lisinopril Allergy Intermediate Verified 06/20/20 00:31 morphine Allergy Intermediate Rash Verified 06/20/20 00:31 - Home Medications Medication Instructions Recorded Confirmed Type Allopurinol 300 mg PO DAILY 03/11/19 03/16/20 History Amlodipine [Norvasc] 5 mg PO DAILY 03/11/19 03/16/20 History Aspirin [Children's Aspirin] 81 mg PO HS 03/11/19 03/16/20 History Carvedilol [Coreg] 25 mg PO BID 03/11/19 03/16/20 History Ezetimibe [Zetia] 10 mg PO HS 03/11/19 03/16/20 History Pramipexole Di-HCl [Pramipexole ER] 0.75 mg PO HS 03/11/19 03/16/20 History Temazepam [Restoril] 15 mg PO HS 03/11/19 03/16/20 History Cilostazol 50 mg PO BIDPC 03/16/20 03/16/20 History hydrALAZINE [Apresoline] 25 mg PO DAILY 03/16/20 03/16/20 History Atorvastatin Calcium [Lipitor] 40 mg PO DAILY #30 tab 03/17/20 Rx Clopidogrel Bisulfate [Plavix] 75 mg PO DAILY #30 tab 03/17/20 Rx - History PMHx: CAD s/p CABG, HLD, macrocytosis, HTN PSHx: CABG, craniotomy in 1969, rotator cuff surgery FHx: non contributory Social: former smoker - quit 10 years ago, occasional drinker, no drug use - Review of Systems ROS unobtainable: due to endotracheal tube - Vital signs BP: 113/61 HR: 82-102 RR: 28-30 Tmax: Pox: 89-92% on ventilator Wt: 121kg - Physical Exam -Constitutional: awake, morbid obesity HEENT: normocephalic and atraumatic, PERRLA, EOMI, no scleral icterus, grossly normal hearing, MMM Neck: supple -Neck: ET and NG tube present Heart: RRR, normal S1/S2, no murmurs/rubs/gallops, pulses present -Lungs: diffuse rhonchi, exp wheeze L>R -Abdomen: central obesity, soft, normal BS -Neurological: responds to commands, opens eyes spontaneously, normal reflexes, responds to pain Skin: no rash/lesions, good turgor, capillary refill <2 seconds Heme/Lymphatic: no unusual bruising or bleeding, no purpura, no petechia FMR H&P: Results - Labs Result Diagrams: 06/19/20 21:02 06/19/20 21:02 Lab results: WBC 6.1 thou/uL (4.8-10.8) 06/19/20 21:02 Hgb 14.3 g/dL (14.0-18.0) 06/19/20 21:02 Hct 41.9 % (42.0-52.0) L 06/19/20 21:02 MCV 101.0 fL (78.0-98.0) H 06/19/20 21:02 Plt Count 103 thou/uL (130-400) L 06/19/20 21:02 Neutrophils % 89.6 % (42.0-75.0) H 06/19/20 21:02 ABG pH 7.29 (7.35-7.45) L 06/19/20 20:57 ABG pCO2 43.2 mmHg (35.0-45.0) 06/19/20 20:57 ABG pO2 56.6 mmHg (> 80.0) L* 06/19/20 20:57 Sodium 136 mmol/L (136-145) 06/19/20 21:02 Potassium 4.4 mmol/L (3.5-5.1) 06/19/20 21:02 Chloride 105 mmol/L (98-107) 06/19/20 21:02 Carbon Dioxide 21 mmol/L (23-31) L 06/19/20 21:02 BUN 25 mg/dL (8.4-25.7) 06/19/20 21:02 Creatinine 1.54 mg/dL (0.7-1.3) H 06/19/20 21:02 Glucose 132 mg/dL (80-115) H 06/19/20 21:02 Lactic Acid 1.1 mmol/L (0.5-2.2) 06/19/20 21:02 Calcium 8.0 mg/dL (7.8-10.44) 06/19/20 21:02 Total Bilirubin 0.7 mg/dL (0.2-1.2) 06/19/20 21:02 AST 36 U/L (5-34) H 06/19/20 21:02 ALT 23 U/L (8-55) 06/19/20 21:02 Alkaline Phosphatase 76 U/L (40-110) 06/19/20 21:02 CK-MB (CK-2) 3.3 ng/mL (0-6.6) 06/19/20 21:02 B-Natriuretic Peptide 32.7 pg/mL (0-100) 06/19/20 21:02 Serum Total Protein 6.7 g/dL (5.8-8.1) 06/19/20 21:02 Albumin 3.3 g/dL (3.4-4.8) L 06/19/20 21:02 Lipase 36 U/L (8-78) 06/19/20 21:02 - Radiology Interpretation Chest x-ray Status: image reviewed by me (diffuse bilateral air space disease, compatible with PNA; enlarged cardiac silhouette), report reviewed by me Other Status: report reviewed by me (CTA: no PE, extensive bilateral lung consolidation, mediastinal lymph node enlargement) CT scan - head Status: report reviewed by me (no evidence of hemorrhage or mass effect) FMR H&P: A/P - Plan Acute Hypoxic Resp Failure 2/2 COVID PNA Patient started with symptoms on 06/15 and worsened on 06/16. Tested on 06/17 and had positive result today. CXR with diffuse infiltrates. Elevated Ddimer. No WBC, elevated neutrophils and low lymphocytes. ABG on admission pH 7.29, CO2 43, O2 56.6, Aa gradient 602. CTA showed no PE. - Will admit to the ICU, will consult pulm (Mikie). Appreciate recommendations - Current vent settings: SIMV, PEEP 12, I:E 1:1.2, VT 550, RR 30. On sedation. Currently satting 92% on these settings. - Will get additional COVID labs including ferritin, LDH, procal, and CRP and can trend. - Will continue azithro, decadron, lovenox, Duoneb. Prone patient when possible. - Palliative care consulted for family support EDITH Likely 2/2 COVID disease process, possible ATN. UA with casts. s/p fluids in the ER. BUN/Cr 25/1.54. Previous Cr of 0.98. - Will hold additional fluids for now and repeat labs in the AM - Will do urine studies to better classify EDITH CAD s/p CABG and stents with elevation in Trop - Will trend troponin. Initial Trop of 0.187, better from previous levels. On lovenox. Mediastinal enlarged lymph node Seen on CTA, will need f/u likely outpatient. Was scheduled for follow up and imaging with Dr. Deluna. HTN - Aware, will monitor. On sedation. HLD - aware Obesity - Will need lifestyle modifications. Will get A1c to risk stratify. Dispo: admit to CCU, stable but critical. LOS >48hrs. Code: Full Diet: NPO Lines: ET tube, NG, charles, left fem central line PCP: Joe Case discussed with Dr. Peter. The above documentation was scribed by both Dr. Roman and myself.
[2020-06-19 22:42] LABS: Bacteria/HPF 1+ HPF (None Seen)
[2020-06-19 22:43] LABS: Mucous/LPF 2+ LPF (<2+); RBC/HPF 0-3 HPF (0-3)
[2020-06-19] MEDS ORDERED: Ventilator Sedation Protocol 1 EACH FS SCH (23:00)
[2020-06-19] MEDS ORDERED: Vecuronium 10 MG VIAL ONE (23:09)
[2020-06-19] MEDS ORDERED: Sterile Water 10 ML ONE (23:10)
[2020-06-19] MEDS ORDERED: Norepinephrine 8 MG/0.9% NS 250 ML ONE (23:15)
[2020-06-19] MEDS ORDERED: Fentanyl BOLUS 250 ML IVPB PRN (23:15)
[2020-06-19] MEDS ORDERED: Propofol BOLUS 1,000 MG/100 ML VIAL IV PRN (23:15)
[2020-06-19] MEDS ORDERED: DISCONTINUE PREVIOUS NARCOTIC PAIN MEDICATIONS AND BENZODIAZEPINES FS SCH (23:15)
--- NOTE | 2020-06-19 23:29 | CT ---
CT BRAIN: Date: 06/19/2020 PROVIDED CLINICAL HISTORY: Altered mental status. FINDINGS: No comparisons. The ventricular system appears normal in size and morphology. There is no evidence for intracranial h emorrhage or mass effect. 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 The extracranial soft tissues and osseous structures demonstrate no acu te abnormality. IMPRESSION: No evidence for intracranial hemorrhage or mass effect. POS: TIFFANY
--- NOTE | 2020-06-19 23:32 | CT ---
CT PULMONARY ANGIOGRAM WITH IV CONTRAST AND 3D MIP RECONSTRUCTIONS: Date: 06/19/2020 PROVIDED CLINICAL HISTORY: Elevated D-Dimer. FINDINGS: Comparison made with study dated 05/16/2020. There is no evidence for central or segmental pulmonary embolus. Vascular calcification including cor onary calcium is demonstrated. There is extensive bilateral lung consolidation, predominately involvi ng both lower lobes. The known right lower lobe pulmonary mass seen on the prior examination is obscu red by surrounding consolidation on the current study. Multiple enlarged mediastinal lymph nodes are now present. There is no pleural fluid or pneumothorax apparent. The airway appears patent and of nor mal caliber. The osseous structures demonstrate no concerning lytic or blastic lesions. IMPRESSION: 1. No evidence for central or segmental pulmonary embolus. 2. Extensive bilateral lung consolidation compatible with pneumonia. 3. Mediastinal lymph node enlargement. 4. Coronary calcium. POS: TIFFANY
[2020-06-19] MEDS ORDERED: Norepinephrine 8 MG/0.9% NS 250 ML IVPB PRN (23:36)
[2020-06-19] MEDS ORDERED: Vecuronium Bromide 50 MG in Sodium Chloride 0.9% 250 ML 250 ML IV SCH (23:45)
[2020-06-19] MEDS ORDERED: Vecuronium 10 MG VIAL IV SCH (23:45)
[2020-06-20 00:12] LABS: Hemoglobin A1c 5.8 % (4.0-6.0)
[2020-06-20] MEDS ORDERED: Vecuronium 10 MG VIAL IV PRN (00:15)
[2020-06-20] MEDS ORDERED: Vecuronium Bromide 50 MG in Sodium Chloride 0.9% 250 ML 250 ML IV PRN (00:18)
--- NOTE | 2020-06-20 00:18 | PDOC.BPN ---
- Brief Progress Note Date/Time: 06/20/20 0016 I personally evaluated the patient and discussed the management with Drs. Roman and Ramon at the time of admission while in the ER. I agree with the History, Physical Exmm, Assessment and Plan as discussed. Written H&P pending.
[2020-06-20] MEDS ORDERED: Enoxaparin Sodium 120 MG/0.8 ML SYRINGE SC SCH (00:45)
[2020-06-20] MEDS: Propofol 1,000 MG/100 ML VIAL IV PRN ×5 (02:54→19:31)
[2020-06-20 04:05] LABS: Band 21 % (5-11); Lymphocytes 5 % (21-51); MDiff Complete? YES; Mean Corpuscular HGB CONC 33.8 g/dL (32.0-36.0); Mean Corpuscular Hemoglobin 33.4 pg (27.0-31.0); Mean Corpuscular Volume 98.9 fL (78.0-98.0); Mean Platelet Volume 8.1 fL (7.4-10.4); Monocytes 5 % (0-10); Neutrophil 69 % (42-75); Platelet Count 111 thou/uL (130-400); Platelet Morphology Comment Appears Decreased; Red Blood Cell (RBC) Count 4.19 mill/uL (4.70-6.10); White Blood Cell (WBC) Count 5.1 thou/uL (4.8-10.8)
[2020-06-20 04:17] LABS: ALT (SGPT) 23 U/L (8-55); AST (SGOT) 37 U/L (5-34); Albumin 3.2 g/dL (3.4-4.8); Alkaline Phosphatase 74 U/L (40-110); Anion Gap 14 mmol/L (10-20); BUN (Urea Nitrogen) 25 mg/dL (8.4-25.7); Bilirubin, Total 0.7 mg/dL (0.2-1.2); CRP (Inflammatory) 6.32 mg/dL (= or < 0.5); Calc. Creatinine Clearance 106 mL/min (70-130); Calcium 7.9 mg/dL (7.8-10.44); Carbon Dioxide 18 mmol/L (23-31); Chloride 107 mmol/L (98-107); Globulin 3.3 g/dL (2.4-3.5); Glucose 186 mg/dL (80-115); Potassium 4.7 mmol/L (3.5-5.1); Protein, Total 6.5 g/dL (5.8-8.1); Sodium 134 mmol/L (136-145)
[2020-06-20 04:24] LABS: Critical Call Chem Troponin I RESULT DECREASING; Troponin I 1.104 ng/mL (< 0.028)
--- NOTE | 2020-06-20 06:58 | PDOC.FM ---
- Subjective Subjective: RN reports no concerns this morning. Required vasopressors overnight for low BP, currently normotensive. - Objective MAR Reviewed: Yes Vital Signs & Weight: Vital Signs (12 hours) Temp Pulse Resp BP Pulse Ox 06/20/20 06:00 30 H 06/20/20 04:00 30 H 06/20/20 03:51 59 L 06/20/20 03:50 98 06/20/20 03:00 98.7 F 06/20/20 02:30 98.9 F 06/20/20 02:00 30 H 06/20/20 00:06 71 116/65 98 06/20/20 00:00 30 H 91 L 06/19/20 23:15 99.6 F Weight Weight 121.6 g Most Recent Monitor Data Heart Rate from ECG 59 NIBP 144/73 NIBP BP-Mean 96 Respiration from ECG 30 SpO2 99 I&O: 06/18/20 06/19/20 06/20/20 06:59 06:59 06:59 Intake Total 570.0 Output Total 920 Balance -350.0 Result Diagrams: 06/20/20 03:28 06/20/20 03:28 Radiology Reviewed by me: Yes Phys Exam - Physical Examination Constitutional: NAD Intubated, sedated and in prone position. HEENT: moist MMs Neck: no nodes crackles bilaterally Cardiovascular: RRR, no significant murmur Gastrointestinal: soft Musculoskeletal: no edema Skin: normal turgor Dx/Plan (1) Acute respiratory failure with hypoxia Code(s): J96.01 - ACUTE RESPIRATORY FAILURE WITH HYPOXIA Status: Acute (2) COVID-19 Code(s): U07.1 - COVID-19 Status: Acute (3) Pneumonia due to COVID-19 virus Code(s): U07.1 - COVID-19; J12.89 - OTHER VIRAL PNEUMONIA Status: Acute (4) CAD (coronary artery disease) Code(s): I25.10 - ATHSCL HEART DISEASE OF [place] CORONARY ARTERY W/O ANG PCTRS Status: Acute (5) HLD (hyperlipidemia) Code(s): E78.5 - HYPERLIPIDEMIA, UNSPECIFIED Status: Acute (6) HTN (hypertension) Code(s): I10 - ESSENTIAL (PRIMARY) HYPERTENSION Status: Acute (7) MALCOM (obstructive sleep apnea) Code(s): G47.33 - OBSTRUCTIVE SLEEP APNEA (ADULT) (PEDIATRIC) Status: Acute - Plan Plan: Acute Hypoxic Respiratory Failure 2/2 COVID PNA Symptom onset 06/15. Tested positive on 06/17. - CTA negative for PE. - Pulmonology consulted, appreciate recommendations. - Will continue azithro, decadron, th lovenox, Duoneb. Prone patient when possible. - Palliative care consulted for family support EDITH, improving - Likely 2/2 COVID disease process, possible ATN. NSTEMI, CAD s/p CABG and stents with elevation in Trop - 0.187 > 1.104 > 1.2. On lovenox. Will trend. Bacteruria - culture pending. Mediastinal enlarged lymph node - Seen on CTA, will need f/u likely outpatient. HTN - Aware, will monitor. On sedation. HLD - aware Obesity - aware Dispo: Stable in CCU. Code: Full Diet: NPO Lines: ET tube, NG, charles, left fem central line PCP: Joe
[2020-06-20 07:14] LABS: Troponin I 1.206 ng/mL (< 0.028)
[2020-06-20 07:36] LABS: Actual Bicarbonate (HCO3a) 18.8 mEq/L (22-28); Base Excess (BEa) -4.1 mEq/L (-2.0 to +3.0); CO2 Tension 28.6 mmHg (35.0-45.0); Calcium, Ionized (arterial) 1.15 mmol/L (1.12-1.30); Carboxyhemoglobin (COHb) 0.3 gm% (0.0-3.0); Hemoglobin (Hb) 13.4 g/dL (14.0-18.0); O2 Tension (PaO2), arterial 264.9 mmHg (> 80.0); Potassium - ABG Lab 3.97 mmol/L (3.70-5.30); pH, Arterial 7.44 (7.35-7.45)
[2020-06-20 07:38] LABS: Puncture Site RRA
[2020-06-20] MEDS: Enoxaparin Sodium 120 MG/0.8 ML SYRINGE SC SCH ×2 (08:24→19:31)
[2020-06-20] MEDS: fentaNYL Citrate/PF 2,000 MCG in Sodium Chloride 0.9% 60 ML IV SCH ×2 (08:25→22:29)
[2020-06-20] MEDS: Dexamethasone Sod Phosphate 4 MG in Sodium Chloride 0.9% 50 ML IVPB SCH ×2 (08:25→19:31)
[2020-06-20] MEDS: Pantoprazole 40 MG VIAL IVP SCH ×2 (08:25→19:31)
[2020-06-20] MEDS: Ascorbic Acid 500 mg Chewable Tablet PER TUBE SCH (08:46)
[2020-06-20] MEDS: Zinc Sulfate 220 MG CAP PER TUBE SCH (08:46)
--- NOTE | 2020-06-20 08:46 | RAD ---
PORTABLE CHEST: HISTORY: Pneumonia followup. CCU followup. COMPARISON: 06/10/2020. FINDINGS: ET tube and NG tube again noted. Bilateral confluent alveolar infiltrates with associated cardiomegaly and vascular congestion. Bilat eral effusions with bibasilar atelectasis. Increasing density in the right upper lung consistent wit h increasing consolidation and atelectasis. No evidence of improvement. POS: OFF
--- NOTE | 2020-06-20 08:54 | CON ---
DATE OF CONSULTATION: 06/20/2020 35 minutes of critical care time. REASON FOR CONSULTATION: COVID-19 pneumonia with acute respiratory failure requiring mechanical ventilation. HISTORY OF PRESENT ILLNESS: The patient is a 64-year-old male, who is a patient of Dr. Deluna in our office. Apparently, he developed COVID symptoms earlier last week and tested positive from a test obtained Saturday. EMS was called last night because of shortness of breath. The patient had O2 sats around 70% on room air at home. He was intubated in the field, brought here, now has been placed on prone ventilation. PAST MEDICAL HISTORY: Remarkable for; 1. Pulmonary nodule. 2. Coronary artery disease. 3. Hyperlipidemia. 4. Hypertension. PAST SURGICAL HISTORY: 1. Coronary artery bypass grafting surgery. 2. Craniotomy. 3. Rotator cuff surgery. FAMILY MEDICAL HISTORY: Unremarkable. SOCIAL HISTORY: Quit smoking 10 years ago. Occasionally drinks alcohol. Does not use illicit drugs. MEDICATIONS: Prior to admission; 1. Pramipexole 0.75 mg nightly. 2. Atorvastatin 40 mg daily. 3. Restoril 50 mg nightly. 4. Cilostazol 50 mg b.i.d. 5. Allopurinol 300 mg daily. 6. Zetia 10 mg nightly. 7. Coreg 25 mg b.i.d. 8. Apresoline 50 mg b.i.d. 9. Aspirin 81 mg daily. 10. Plavix 75 mg daily. 11. Norvasc 5 mg daily. Current inpatient medications reviewed, list under active medication section in the chart note. The patient is on dexamethasone, therapeutic dose of enoxaparin, Levophed and being intermittently paralyzed. REVIEW OF SYSTEMS: Cannot be obtained because the patient is on mechanical ventilation. PHYSICAL EXAMINATION: VITAL SIGNS: Heart rate 62, blood pressure 150/78, O2 saturation 100%, respiratory rate 30, temperature 98.7. The patient is on prone position on mechanical ventilation. Therefore, physical exam is very limited at this time. His lungs have diffuse crackles bilaterally on inspiration. He has generalized obesity. No overt edema. LABORATORY DATA: Sodium 134, potassium 4.7, chloride 107, CO2 of 18, BUN 25, creatinine 1.2, glucose 186, LDH 431, troponin 1.2, ferritin 2842, procalcitonin 1.49. C-reactive protein 6.32, pH 7.44, pCO2 of 28, pO2 of 264 on bilevel 13/12, respiratory rate 30, and FiO2 of 100%. White blood cell count 5.1, hematocrit 41.4, and platelet count 111. IMAGING STUDIES: X-ray showed diffuse bilateral infiltrates. This was supported by a CT scan. ASSESSMENT: 1. COVID-19 pneumonia. 2. Acute hypoxic respiratory failure requiring mechanical ventilation. 3. Morbid obesity. PLAN: The patient will continue prone ventilation for the next 24 hours. He will continue the IV steroids and the anticoagulation. I have added vitamin C, vitamin D, and zinc to his regimen. It is anticipated that the patient will be ventilated for quite some time. I will inform Dr. Deluna about the patient's hospitalization. Job ID: [id number]
[2020-06-20] MEDS ORDERED: Prevnar 13-Val Conj/PF 0.5 ML SYRINGE IM ONE (09:00)
[2020-06-20] MEDS ORDERED: FLU VACC QS2020-21(6MOS UP)/PF 60 MCG/0.5 ML SYRINGE IM ONE (09:00)
[2020-06-20] MEDS ORDERED: Enoxaparin Sodium 40 MG/0.4 ML SYRINGE SC SCH ×2 (09:00)
--- NOTE | 2020-06-20 10:50 | PRG ---
DATE OF SERVICE: 06/20/2020 Mr. Ayala is a 64-year-old man, who developed COVID pneumonia while at home. EMS was called on the evening of admission because of his shortness of breath and somnolence. He had to be intubated in the field and was subsequently admitted to ICU, placed on a ventilator. He is currently on the ventilator and receiving IV steroids. He was not a candidate for remdesivir. He is also being followed and we will follow with him with the Pulmonary Service. Job ID: [id number]
[2020-06-20] MEDS: Vecuronium 10 MG VIAL IVP PRN (14:44)
[2020-06-20] MEDS: Lorazepam 2 MG/ML VIAL SLOW IVP PRN (15:40)
[2020-06-20] MEDS: Cholecalciferol 1,000 UNITS (25 MCG) TAB PER TUBE SCH (19:31)
[2020-06-20] MEDS: Azithromycin 250 MG, Admixture Fee 1 EACH in Sodium Chloride 0.9% 250 ML 250 ML IVPB SCH (19:33)
[2020-06-21] MEDS: Propofol 1,000 MG/100 ML VIAL IV PRN ×6 (00:21→20:45)
[2020-06-21] MEDS ORDERED: Sterile Water 10 ML ONE (00:58)
[2020-06-21] MEDS: Vecuronium 10 MG VIAL IVP PRN (00:59)
[2020-06-21 04:15] LABS: Band 20 % (5-11); Hemoglobin 12.8 g/dL (14.0-18.0); Hypochromia SLIGHT = 6-15 cells (100X) (0-5/hpf); Lymphocytes 9 % (21-51); MDiff Complete? YES; Mean Corpuscular HGB CONC 31.8 g/dL (32.0-36.0); Mean Corpuscular Hemoglobin 31.7 pg (27.0-31.0); Mean Corpuscular Volume 99.6 fL (78.0-98.0); Mean Platelet Volume 8.8 fL (7.4-10.4); Metamyelocyte 1 % (0-0); Monocytes 2 % (0-10); Neutrophil 68 % (42-75); Platelet Count 96 thou/uL (130-400); Platelet Morphology Comment Appears Decreased; RBC Distribution Width 13.8 % (11.5-14.5); Red Blood Cell (RBC) Count 4.03 mill/uL (4.70-6.10); White Blood Cell (WBC) Count 6.3 thou/uL (4.8-10.8)
[2020-06-21 04:24] LABS: ALT (SGPT) 23 U/L (8-55); AST (SGOT) 46 U/L (5-34); Alkaline Phosphatase 67 U/L (40-110); Anion Gap 18 mmol/L (10-20); BUN (Urea Nitrogen) 19 mg/dL (8.4-25.7); Bilirubin, Total 0.5 mg/dL (0.2-1.2); Calc. Creatinine Clearance 140 mL/min (70-130); Calcium 8.3 mg/dL (7.8-10.44); Carbon Dioxide 17 mmol/L (23-31); Chloride 107 mmol/L (98-107); Globulin 3.6 g/dL (2.4-3.5); Glucose 142 mg/dL (80-115); Potassium 4.3 mmol/L (3.5-5.1); Protein, Total 6.6 g/dL (5.8-8.1); Sodium 138 mmol/L (136-145)
--- NOTE | 2020-06-21 07:11 | PDOC.FM ---
- Subjective Subjective: Intubated and sedated, no events overnight - Objective Vital Signs & Weight: Vital Signs (12 hours) Temp Resp Pulse Ox 06/21/20 06:00 22 H 06/21/20 04:00 22 H 06/21/20 03:00 99.0 F 06/21/20 02:00 22 H 06/21/20 00:00 22 H 06/20/20 23:00 98.1 F 06/20/20 22:00 22 H 06/20/20 20:00 22 H 06/20/20 19:19 97 Weight Admit Weight 121.109 kg Weight 120.7 kg Most Recent Monitor Data Heart Rate from ECG 58 NIBP 120/71 NIBP BP-Mean 87 Respiration from ECG 22 SpO2 99 I&O: 06/20/20 06/21/20 06/22/20 06:59 06:59 06:59 Intake Total 630.0 908 Output Total 920 1830 Balance -290.0 -922 Result Diagrams: 06/21/20 03:13 06/21/20 03:13 Radiology Reviewed by me: Yes (Significantly improved airspace. ) Phys Exam - Physical Examination Constitutional: NAD Intubated and deeply sedated. HEENT: PERRLA, moist MMs Neck: no nodes Mild crackles, clearer than yesterday. Cardiovascular: RRR, no significant murmur Gastrointestinal: soft Musculoskeletal: no edema Lymphatic: no nodes Skin: no rash Dx/Plan (1) Acute respiratory failure with hypoxia Code(s): J96.01 - ACUTE RESPIRATORY FAILURE WITH HYPOXIA Status: Acute (2) COVID-19 Code(s): U07.1 - COVID-19 Status: Acute (3) Pneumonia due to COVID-19 virus Code(s): U07.1 - COVID-19; J12.89 - OTHER VIRAL PNEUMONIA Status: Acute (4) CAD (coronary artery disease) Code(s): I25.10 - ATHSCL HEART DISEASE OF [place] CORONARY ARTERY W/O ANG PCTRS Status: Acute (5) HLD (hyperlipidemia) Code(s): E78.5 - HYPERLIPIDEMIA, UNSPECIFIED Status: Acute (6) HTN (hypertension) Code(s): I10 - ESSENTIAL (PRIMARY) HYPERTENSION Status: Acute (7) MALCOM (obstructive sleep apnea) Code(s): G47.33 - OBSTRUCTIVE SLEEP APNEA (ADULT) (PEDIATRIC) Status: Acute - Plan Plan: General: - NAD, well-sedated. Neuro: - On Propofol for sedation. Respiratory: - Intubated 06/19/20. On BiLevel 32/12. 45% FiO2. Rate of 22. - Symptom onset 06/15. Positive test on 06/17. - COVID 19 PNA: On Dexamethasone, Duonebs, therapeutic lovenox, and azithromycin. - CXR showed significant airspace improvement. - Mediastinal lymphnode enlarged on CTA, sees Dr. Deluna outpatient and will need outpatient f/u. Cardiovascular: - Holding home HTN medications. Monitor VS. - Elevated troponin - on therapeutic lovenox. Gastrointestinal: - On Protonix for GI ppx. Nutrition: - Tube feeds initiated 06/20. Genitourinary/Renal: - UA significant for 4-6 WBC, 1+ bacteria, casts, and mucus. Culture pending. No growth @ 12 hours. Hematologic: - On Th lovenox. Platelets 96. Infectious disease: - Urine and blood cx showed no growth @ 12 hours. Lines/Tubes: - Endotracheal tube 06/19 - L femoral central line 06/19 - 20g LAC 06/19 - 20g RAC 06/19 - Brizuela catheter 06/19 Dispo: Stable in CCU. Code: Full Diet: Tube feeds PCP: Joe Addendum - Attending - Attending Attestation Date/Time: 06/21/20 1998 I personally evaluated the patient and discussed the management with the team. I agree with the History, Examination, Assessment and Plan documented above with any addition or exceptions noted below.
[2020-06-21] MEDS: Ascorbic Acid 500 mg Chewable Tablet PER TUBE SCH (08:17)
[2020-06-21] MEDS: Zinc Sulfate 220 MG CAP PER TUBE SCH (08:17)
[2020-06-21] MEDS: Pantoprazole 40 MG VIAL IVP SCH ×2 (08:18→20:42)
[2020-06-21] MEDS: Enoxaparin Sodium 120 MG/0.8 ML SYRINGE SC SCH ×2 (08:18→20:42)
[2020-06-21] MEDS: Dexamethasone Sod Phosphate 4 MG in Sodium Chloride 0.9% 50 ML IVPB SCH ×2 (08:30→20:42)
--- NOTE | 2020-06-21 08:47 | RAD ---
PORTABLE CHEST: HISTORY: CCU followup on ventilator. COMPARISON: 06/20/2020. FINDINGS: The ET tube and NG tube remain in place. The bilateral infiltrates show evidence of significant improvement when compared to yesterday. The c onfluent infiltrates in the right lung are much less pronounced today. Bibasilar infiltrates and ate lectasis remain. IMPRESSION: Significant improvement in the bilateral infiltrates. POS: AGW
[2020-06-21 09:04] LABS: Actual Bicarbonate (HCO3a) 18.7 mEq/L (22-28); Base Excess (BEa) -2.7 mEq/L (-2.0 to +3.0); Calcium, Ionized (arterial) 1.15 mmol/L (1.12-1.30); Carboxyhemoglobin (COHb) 0.5 gm% (0.0-3.0); Hemoglobin (Hb) 14.1 g/dL (14.0-18.0); O2 Tension (PaO2), arterial 99.6 mmHg (> 80.0)
[2020-06-21 09:18] LABS: CO2 Tension 24.6 mmHg (35.0-45.0); Puncture Site RRA
[2020-06-21] MEDS: Lorazepam 2 MG/ML VIAL SLOW IVP PRN ×2 (12:49→21:55)
[2020-06-21] MEDS: fentaNYL Citrate/PF 2,000 MCG in Sodium Chloride 0.9% 60 ML IV SCH (12:51)
[2020-06-21] MEDS ORDERED: Amlodipine 5 MG TAB PO SCH (13:00)
[2020-06-21] MEDS ORDERED: Pancrelipase DR 12,000 1 CAP FS PRN (16:45)
[2020-06-21] MEDS ORDERED: Sodium Bicarbonate Tab 325 MG TAB PER TUBE PRN (16:45)
--- NOTE | 2020-06-21 17:04 | PRG ---
DATE OF SERVICE: 06/21/2020 SUBJECTIVE: Mr. Ayala is sedated for ventilation. He awakened and gave me a thumbs up today. OBJECTIVE: VITAL SIGNS: Blood pressure 135/77, FiO2 is at 50. LUNGS: Remarkable for coarse equal breath sounds. HEART: Regular rhythm. ABDOMEN: Soft. EXTREMITIES: Without asymmetry. LABORATORY DATA: White count 6.3, hemoglobin 12.8, platelets 96,000, 20% bands on his peripheral smear. Sodium 130, potassium 4.3, chloride 107, bicarb 17, BUN 19, creatinine 0.9. Chest x-ray surprisingly has improved. PH 7.5, CO2 of 24, PO2 of 99. Intake and outputs, negative 836. IMPRESSION: 1. COVID pneumonia. 2. With his rapid onset and fairly rapid improvement in his radiograph, I would wonder if some of this has been secondary to pulmonary edema. 3. With 20% bands on his peripheral smear, I do not think it would be unreasonable to broaden his antimicrobial therapy at least for now. I doubt there is a superimposed bacterial process, but his acute deterioration is a little more atypical for COVID than would be for a bacterial process. Hopefully, he will continue to improve. He did have a BNP on admission, which is only 32, arguing against that congestive heart failure is a contributing diagnosis. Critical care time was 30 min. Job ID: [id number] [facility] NETWORKCary
[2020-06-21] MEDS: cefTRIAXone\\ROCEPHIN 2 GM in Sodium Chloride 0.9% 100 ML IVPB SCH (18:44)
[2020-06-21] MEDS: Cholecalciferol 1,000 UNITS (25 MCG) TAB PER TUBE SCH (20:42)
[2020-06-21] MEDS: Azithromycin 250 MG, Admixture Fee 1 EACH in Sodium Chloride 0.9% 250 ML 250 ML IVPB SCH (20:42)
[2020-06-22] MEDS: Propofol 1,000 MG/100 ML VIAL IV PRN ×6 (01:11→21:53)
[2020-06-22 06:47] LABS: #Lymphocytes 0.3 thou/uL (1.20-3.40); #Monocytes 0.6 thou/uL (0.11-0.59); #Neutrophils 7.1 thou/uL (1.40-6.50); %Lymphocytes 3.9 % (21.0-51.0); %Neutrophils 89.2 % (42.0-75.0); Hemoglobin 12.2 g/dL (14.0-18.0); Mean Corpuscular HGB CONC 32.9 g/dL (32.0-36.0); Mean Corpuscular Hemoglobin 33.1 pg (27.0-31.0); Mean Platelet Volume 8.4 fL (7.4-10.4); Platelet Count 98 thou/uL (130-400); RBC Distribution Width 13.9 % (11.5-14.5); Red Blood Cell (RBC) Count 3.69 mill/uL (4.70-6.10); White Blood Cell (WBC) Count 7.9 thou/uL (4.8-10.8)
[2020-06-22 06:59] LABS: ALT (SGPT) 58 U/L (8-55); AST (SGOT) 82 U/L (5-34); Albumin 2.9 g/dL (3.4-4.8); Alkaline Phosphatase 68 U/L (40-110); Anion Gap 15 mmol/L (10-20); BUN (Urea Nitrogen) 25 mg/dL (8.4-25.7); Bilirubin, Total 0.6 mg/dL (0.2-1.2); Calc. Creatinine Clearance 135 mL/min (70-130); Calcium 7.9 mg/dL (7.8-10.44); Carbon Dioxide 23 mmol/L (23-31); Chloride 106 mmol/L (98-107); Globulin 3.3 g/dL (2.4-3.5); Glucose 111 mg/dL (80-115); Potassium 4.5 mmol/L (3.5-5.1); Protein, Total 6.2 g/dL (5.8-8.1); Sodium 139 mmol/L (136-145)
--- NOTE | 2020-06-22 07:14 | PDOC.FM ---
- Subjective Subjective: RN reports overnight increased white sputum and bloody mucus in the ET suction. Patient fevered overnight to 102F. - Objective MAR Reviewed: Yes Vital Signs & Weight: Vital Signs (12 hours) Temp Resp Pulse Ox 06/22/20 06:00 20 06/22/20 04:00 17 91 L 06/22/20 03:44 98.9 F 06/22/20 03:00 101.3 F H 06/22/20 02:00 17 06/22/20 00:00 99.8 F H 17 06/21/20 22:00 17 06/21/20 19:56 93 L 06/21/20 19:47 14 Weight Admit Weight 121.109 kg Weight 121.6 kg Most Recent Monitor Data Heart Rate from ECG 89 NIBP 174/81 NIBP BP-Mean 112 Respiration from ECG 20 SpO2 91 I&O: 06/21/20 06/22/20 06/23/20 06:59 06:59 06:59 Intake Total 993.5 1930.6 Output Total 1830 1235 Balance -836.5 695.6 Result Diagrams: 06/22/20 06:20 06/22/20 06:20 Radiology Reviewed by me: Yes (Increased opacity compared to yesterday. ) Phys Exam - Physical Examination Constitutional: NAD Intubated and sedated. HEENT: PERRLA, moist MMs Neck: no nodes Crackles diffusely. Cardiovascular: RRR, no significant murmur Gastrointestinal: soft, non-tender Musculoskeletal: no edema, pulses present Skin: no rash, normal turgor Dx/Plan (1) Acute respiratory failure with hypoxia Code(s): J96.01 - ACUTE RESPIRATORY FAILURE WITH HYPOXIA Status: Acute (2) COVID-19 Code(s): U07.1 - COVID-19 Status: Acute (3) Pneumonia due to COVID-19 virus Code(s): U07.1 - COVID-19; J12.89 - OTHER VIRAL PNEUMONIA Status: Acute (4) CAD (coronary artery disease) Code(s): I25.10 - ATHSCL HEART DISEASE OF [place] CORONARY ARTERY W/O ANG PCTRS Status: Acute (5) HLD (hyperlipidemia) Code(s): E78.5 - HYPERLIPIDEMIA, UNSPECIFIED Status: Acute (6) HTN (hypertension) Code(s): I10 - ESSENTIAL (PRIMARY) HYPERTENSION Status: Acute (7) MALCOM (obstructive sleep apnea) Code(s): G47.33 - OBSTRUCTIVE SLEEP APNEA (ADULT) (PEDIATRIC) Status: Acute - Plan Plan: General: - NAD, well-sedated. Neuro: - On Propofol and Fentanyl for sedation and pain management. Respiratory: - Intubated 06/19/20. On SIMV. Rate 12. Peep 10. FiO2 60%. 600mL TV. - Symptom onset 06/15. Positive test on 06/17. - COVID 19 PNA: On Dexamethasone, Duonebs, therapeutic lovenox, and azithromycin. - CXR showed interval worsening of airspace, however "less conspicuous" than 06/20. - Mediastinal lymphnode enlarged on CTA, sees Dr. Deluna outpatient and will need outpatient f/u. Cardiovascular: - Restarted amlodipine. Holding home hydralazine and coreg. Will monitor pressures today and consider restarting home antihypertensives. - Elevated troponin - on therapeutic lovenox. Decrease dose to 100mg BID from 120mg BID due to bloody sputum. Gastrointestinal: - On Protonix for GI ppx. Nutrition: - Tube feeds initiated 06/20. - Rate of 50. Genitourinary/Renal: - UA significant for 4-6 WBC, 1+ bacteria, casts, and mucus. - UCx negative. Hematologic: - On lovenox. Platelets stable, 98. Infectious disease: - Urine and blood cx showed no growth @ 48 hours. - On azithromycin (06/20) - On rocephin (06/21) Lines/Tubes: - Endotracheal tube 06/19 - L femoral central line 06/19 - 20g LAC 06/19 - Brizuela catheter 06/19 Dispo: Stable, critically ill, in CCU. Code: Full Diet: Tube feeds PCP: Joe Addendum - Attending - Attending Attestation Date/Time: 06/22/20 1314 I personally evaluated the patient and discussed the management with the team. I agree with the History, Examination, Assessment and Plan documented above with any addition or exceptions noted below. Patient with pink secretions from ETT. Lovenox decreased. Elevated TnI with h/o CAD - will consult cardiology. LBBB is old. Increase atorvastatin to 80 mg. Lung protective ventilation if possible.
--- NOTE | 2020-06-22 08:07 | RAD ---
Portable frontal chest radiograph: 06/22/2020 COMPARISON: 06/21/2020 and 06/20/2020 HISTORY: Ventilated CCU patient FINDINGS: Stable endotracheal tube. Nasogastric tube in stable position. Multiple monitoring wires ar e curled over the patient's chest, limiting detailed assessment. Stable midline sternotomy wires. Extensive nonspecific interstitial and alveolar opacity noted with a perihilar/bibasilar predominance , worsened when compared to the 06/21/2020 examination. IMPRESSION: Extensive interstitial and alveolar opacity demonstrating interval worsening when compare d to the prior exam. This could reflect worsening edema or nonspecific infectious process. Of note, these findings are still less conspicuous than on the 06/20/2020 exam.
[2020-06-22 08:08] LABS: Actual Bicarbonate (HCO3a) 22.5 mEq/L (22-28); Base Excess (BEa) -1.7 mEq/L (-2.0 to +3.0); CO2 Tension 36.4 mmHg (35.0-45.0); Calcium, Ionized (arterial) 1.17 mmol/L (1.12-1.30); Hemoglobin (Hb) 14.3 g/dL (14.0-18.0); Potassium - ABG Lab 4.48 mmol/L (3.70-5.30); pH, Arterial 7.41 (7.35-7.45)
[2020-06-22] MEDS: fentaNYL Citrate/PF 2,000 MCG in Sodium Chloride 0.9% 60 ML IV SCH (08:12)
[2020-06-22] MEDS: Pantoprazole 40 MG VIAL IVP SCH ×2 (08:18→20:13)
[2020-06-22] MEDS: Acetaminophen 325 MG TAB PO PRN (08:19)
[2020-06-22] MEDS: Enoxaparin Sodium 120 MG/0.8 ML SYRINGE SC SCH ×2 (08:19→20:12)
[2020-06-22] MEDS: Zinc Sulfate 220 MG CAP PER TUBE SCH (08:19)
[2020-06-22] MEDS: Amlodipine 5 MG TAB PO SCH (08:19)
[2020-06-22] MEDS: Ascorbic Acid 500 mg Chewable Tablet PER TUBE SCH (08:19)
[2020-06-22 08:26] LABS: Puncture Site RRA
[2020-06-22] MEDS: Dexamethasone Sod Phosphate 4 MG in Sodium Chloride 0.9% 50 ML IVPB SCH ×2 (09:10→21:04)
[2020-06-22] MEDS: Lorazepam 2 MG/ML VIAL SLOW IVP PRN ×3 (11:53→16:04)
[2020-06-22] MEDS: Vecuronium 10 MG VIAL IVP PRN ×3 (12:39→16:04)
[2020-06-22] MEDS: cefTRIAXone\\ROCEPHIN 2 GM in Sodium Chloride 0.9% 100 ML IVPB SCH (16:04)
--- NOTE | 2020-06-22 16:07 | PRG ---
DATE OF SERVICE: 06/22/2020 SUBJECTIVE: Mr. Ayala remains mechanically ventilated. He is on Rocephin, Decadron, adjusted dose Lovenox, and sedatives. He is intermittently requiring paralytics. OBJECTIVE: VITAL SIGNS: Have been stable. Blood pressure 161/66, heart rate is in the 90s and in sinus rhythm. FiO2 is at 55%. LUNGS: Unchanged otherwise. HEART: Unchanged otherwise. ABDOMEN: Unchanged otherwise. LABORATORY DATA: White count 7.9, hemoglobin 12.2, platelets 98. Electrolytes are unremarkable. IMPRESSION: 1. COVID pneumonia with respiratory failure. 2. Obesity and deconditioning. Today's chest radiographs essentially unchanged . Intake and outputs positive 695. Overall, since he has been admitted, his intake and output are a little bit on the negative side, not including insensible losses. We will continue supportive care. Critical care time 30 min. Job ID: [id number] MTDD
[2020-06-22] MEDS ORDERED: Aspirin 81 mg Enteric Coated Tablet PO SCH (18:00)
[2020-06-22] MEDS ORDERED: Clopidogrel Bisulfate 75 MG TAB PO SCH (18:00)
[2020-06-22] MEDS: Cholecalciferol 1,000 UNITS (25 MCG) TAB PER TUBE SCH (20:11)
[2020-06-22] MEDS: Azithromycin 250 MG, Admixture Fee 1 EACH in Sodium Chloride 0.9% 250 ML 250 ML IVPB SCH (21:04)
--- NOTE | 2020-06-22 22:20 | CON ---
DATE OF CONSULTATION: 06/22/2020 INDICATION FOR CONSULTATION: 64-year-old gentleman who has COVID pneumonia in the intensive care unit, who has a history of coronary artery disease who underwent angioplasty and stent placed, and also had previous bypass surgery. At this time, we were asked to see the patient due to a slight elevation of the cardiac enzymes. HISTORY OF PRESENT ILLNESS: This is a very unfortunate 64-year-old gentleman who is in the intensive care unit this time on the ventilator. He has been found to have COVID pneumonia. He presented to the emergency room. Significant chest x-ray findings compatible with pneumonia. Since that time, apparently he is also COVID positive. He continues on the ventilator. He does have a history of coronary artery disease. He underwent bypass surgery in the past, I believe with a DE PAZ to the left anterior descending artery and recently back in February, he underwent angioplasty and stent placement with several stents to the left circumflex. There was apparently a dissection of the circumflex back into the left main during the procedure. He also underwent stenting of the left main at that time and did very well according to the records. His most recent echocardiogram was performed in February in [facility], which showed a normal ejection fraction of at least 45% to 50%. He did have anterior septal hypokinesis as well as trace mitral and tricuspid valve regurgitation. His EKG shows what appears to be a left bundle branch block or an IVCD, and just he has only had one EKG, other than the rest are just telemetry tracings, but on the original chart, this is not completely left bundle, but does have the appearance of a left bundle branch block. I do not know whether this is new or not, but the patient is obviously not able to give any history and the information is obtained by review of the records, but his cardiac enzymes are not significantly elevated, and one would expect with the COVID infection pneumonia that to have a slight elevation of troponin-I would not be abnormal. He certainly could be developing a myocarditis also from the COVID illness or he could also be having underlying ischemia, which at this time he is obviously not a candidate for further evaluation from a cardiac standpoint and would continue medical management with anticoagulation as well as antiplatelets since he has a recent stent in the left circumflex as well as left main. His cardiac enzymes have not been repeated since 06/20, these are old cardiac enzymes. He has not had any enzymes today or yesterday. His troponin-I on admission was 0.187, repeated on 06/20 twice, it was 1.1 and then 1.2. There have been no further enzyme evaluations performed. We will ask for a repeat cardiac enzyme. He has also had no repeat echocardiogram performed, which would be advisable with the COVID, however, due to the technical problems and COVID most likely he will not have an echocardiogram until he improves, and is negative from the COVID, but there is no other significant interventions that we can do at this time other than medical management. It would however be important that he continues on some type of anti-platelet medication, I do not see that listed in his medications. We will review the records again and determine whether or not he had a drug-coated stent or not. If he did have a drug-coated stent, then obviously he will definitely need to be on anticoagulation with dual anti-platelet therapy for at least 6 months. PAST MEDICAL HISTORY: Significant for coronary artery disease. He has had bypass surgery. He has had previous stent placements. Apparently, he has peripheral vascular disease, hypertension, dyslipidemia, history of diastolic dysfunction, gastric ulcers, renal artery stenosis, restless legs syndrome, depression, and obesity. He has had rotator cuff surgery as well as a craniotomy in 1969. SOCIAL HISTORY: Apparently, he is a art rancher. He smoked in the past. He has occasional alcohol use. No illicit drug use. REVIEW OF SYSTEMS: Unobtainable. PRESENT MEDICATIONS: He is on: 1. Zithromax. 2. Rocephin. 3. Steroids. 4. Fentanyl for sedation. 5. He is on ipratropium and albuterol sulfate nebulizers. 6. He is on Protonix. 7. Norvasc. 8. P.r.n. medications. 9. Vitamins. 10. He is on Lovenox b.i.d. 120 mg. 11. Zinc sulfate. 12. Tylenol. 13. Norepinephrine as needed. ALLERGIES: APPARENTLY HE IS ALLERGIC TO MORPHINE AND LISINOPRIL. PHYSICAL EXAMINATION: Deferred due to the COVID, but vital signs show blood pressure 142/70, heart rate is 71 and regular, respiratory rate is 18, O2 saturation is 99% at this time on the ventilator. IMPRESSION: 1. Coronavirus disease pneumonia. The patient is being dealt with in the intensive care unit and hopefully will improve. 2. Coronary artery disease with recent stent placement. He is not on anti- platelet medications at this time for the stents, perhaps Lovenox will suffice at this time. I would suggest he be on aspirin if at all possible, 81 mg should suffice. 3. History of what appears to be left bundle branch block or interventricular conduction abnormality, I do not know whether this is new or not. Perhaps we can obtain some EKGs from [facility]. I would also advise the patient to undergo echocardiogram for evaluation of left ventricular systolic function when it is feasible. He may also develop a cardiomyopathy associated with the coronavirus disease or may develop myocarditis. 4. The elevated cardiac enzymes, which could be due to ischemia, could be due to overall illness, could be due to left diastolic dysfunction, which was noted on echocardiogram in the past, or could be due to myocarditis in this patient or could be due to underlying ischemia based on the stents, which were placed in the left circumflex as also stent that was placed in the left main. Please note, he was implanted with drug-eluting stents with a 2.5 x 32 mm stent in the distal circumflex and then another 3.5 x 28 mm stent, which was placed into the left circumflex extended back into the left main, and I believe a third stent was placed, which was another 3.0 x 28 mm drug-eluting stent. We will be more than happy to continue to follow the patient with you. Obviously, his situation is guarded due to his multiple problems. We will continue to adjust his medications. His blood pressure stable at this time. Job ID: [id number] [facility]
[2020-06-22] MEDS ORDERED: Sterile Water 10 ML ONE (23:53)
[2020-06-23] MEDS: Vecuronium 10 MG VIAL IVP PRN ×2 (00:24→05:47)
[2020-06-23] MEDS: fentaNYL Citrate/PF 2,000 MCG in Sodium Chloride 0.9% 60 ML IV SCH ×2 (01:34→21:10)
[2020-06-23] MEDS: Propofol 1,000 MG/100 ML VIAL IV PRN ×6 (01:45→22:39)
[2020-06-23] MEDS: Lorazepam 2 MG/ML VIAL SLOW IVP PRN (05:47)
[2020-06-23 05:52] LABS: ALT (SGPT) 127 U/L (8-55); AST (SGOT) 106 U/L (5-34); Albumin 2.9 g/dL (3.4-4.8); Alkaline Phosphatase 73 U/L (40-110); Anion Gap 14 mmol/L (10-20); BUN (Urea Nitrogen) 23 mg/dL (8.4-25.7); Bilirubin, Total 0.9 mg/dL (0.2-1.2); CRP (Inflammatory) 12.31 mg/dL (= or < 0.5); Calc. Creatinine Clearance 157 mL/min (70-130); Calcium 8.3 mg/dL (7.8-10.44); Carbon Dioxide 25 mmol/L (23-31); Chloride 104 mmol/L (98-107); Globulin 3.4 g/dL (2.4-3.5); Glucose 150 mg/dL (80-115); Potassium 4.5 mmol/L (3.5-5.1); Protein, Total 6.3 g/dL (5.8-8.1); Sodium 138 mmol/L (136-145)
[2020-06-23 05:59] LABS: Band 8 % (5-11); Hemoglobin 11.6 g/dL (14.0-18.0); Hypochromia SLIGHT = 6-15 cells (100X) (0-5/hpf); Lymphocytes 3 % (21-51); MDiff Complete? YES; Mean Corpuscular HGB CONC 32.4 g/dL (32.0-36.0); Mean Corpuscular Hemoglobin 32.8 pg (27.0-31.0); Mean Platelet Volume 8.7 fL (7.4-10.4); Monocytes 7 % (0-10); Neutrophil 82 % (42-75); Platelet Count 86 thou/uL (130-400); Platelet Morphology Comment Appears Adequate; Red Blood Cell (RBC) Count 3.54 mill/uL (4.70-6.10); White Blood Cell (WBC) Count 6.7 thou/uL (4.8-10.8)
--- NOTE | 2020-06-23 07:20 | PDOC.FM ---
- Subjective Subjective: Per RN no acute events overnight. Yesterday afternoon he had O2 desaturations and required increased ventilatory support so they placed him back in the prone position until 4pm tonight. - Objective MAR Reviewed: Yes Vital Signs & Weight: Vital Signs (12 hours) Temp Pulse Resp Pulse Ox 06/23/20 06:00 18 06/23/20 04:00 99.0 F 18 06/23/20 02:21 62 18 100 06/23/20 02:00 18 06/23/20 00:00 98.8 F 18 06/22/20 22:00 18 06/22/20 21:35 69 18 100 06/22/20 20:00 98.9 F 18 98 06/22/20 19:42 66 18 99 Weight Admit Weight 121.109 kg Weight 120.8 kg Most Recent Monitor Data Heart Rate from ECG 62 NIBP 157/84 NIBP BP-Mean 108 Respiration from ECG 18 SpO2 100 I&O: 06/22/20 06/23/20 06/24/20 06:59 06:59 06:59 Intake Total 1930.6 1699.3 Output Total 1235 1530 Balance 695.6 169.3 Result Diagrams: 06/23/20 04:30 06/23/20 04:30 Radiology Reviewed by me: Yes Phys Exam - Physical Examination Constitutional: NAD HEENT: moist MMs Neck: no nodes Crackles bilaterally Cardiovascular: RRR, no significant murmur Gastrointestinal: soft Musculoskeletal: no edema, pulses present Skin: no rash, normal turgor Dx/Plan (1) Acute respiratory failure with hypoxia Code(s): J96.01 - ACUTE RESPIRATORY FAILURE WITH HYPOXIA Status: Acute (2) COVID-19 Code(s): U07.1 - COVID-19 Status: Acute (3) Pneumonia due to COVID-19 virus Code(s): U07.1 - COVID-19; J12.89 - OTHER VIRAL PNEUMONIA Status: Acute (4) CAD (coronary artery disease) Code(s): I25.10 - ATHSCL HEART DISEASE OF [place] CORONARY ARTERY W/O ANG PCTRS Status: Acute (5) HLD (hyperlipidemia) Code(s): E78.5 - HYPERLIPIDEMIA, UNSPECIFIED Status: Acute (6) HTN (hypertension) Code(s): I10 - ESSENTIAL (PRIMARY) HYPERTENSION Status: Acute (7) MALCOM (obstructive sleep apnea) Code(s): G47.33 - OBSTRUCTIVE SLEEP APNEA (ADULT) (PEDIATRIC) Status: Acute - Plan Plan: General: - NAD, well-sedated. Neuro: - On Propofol and Fentanyl for sedation and pain management. Respiratory: - Intubated 06/19/20. On BiLevel /. FiO2 60%. Rate 18. TV 600s. Placed back in prone position 1600 yesterday due to worsening O2 saturations. - Symptom onset 06/15. Positive test on 06/17. - COVID 19 PNA: On Dexamethasone, Duonebs, therapeutic lovenox, and azithromycin. - CXR showed stable infiltrates. - Mediastinal lymphnode enlarged on CTA, sees Dr. Deluna outpatient and will need outpatient f/u. Cardiovascular: - Restarted amlodipine. Holding home hydralazine and coreg. Will monitor pressures today and consider restarting home antihypertensives if pressures are elevated. - Elevated troponin - on therapeutic lovenox (100mg BID) - Initial EKG showed LBBB. EKG from 03/10 showed LBBB. During that hospitalization he underwent catheterization with stent placement. H/o CABG in 2009 or 2010. - Consulted cardiology, appreciate recommendations. - Increased atorvastatin to 80mg Gastrointestinal: - On Protonix for GI ppx. Nutrition: - Tube feeds initiated 06/20. - Rate of 50. Genitourinary/Renal: - UA significant for 4-6 WBC, 1+ bacteria, casts, and mucus. - UCx negative. Hematologic: - On lovenox. (100mg BID) Platelets 86 this morning, down from 98. Infectious disease: - Urine and blood cx showed no growth @ 48 hours. - On azithromycin (06/20) - On rocephin (06/21) Lines/Tubes: - Endotracheal tube 06/19 - L femoral central line 06/19 - 20g LAC 06/19 - Brizuela catheter 06/19 Dispo: Stable, critically ill, in CCU. Code: Full Diet: Tube feeds PCP: Joe Addendum - Attending - Attending Attestation Date/Time: 06/23/20 0708 I personally evaluated the patient and discussed the management with Dr. Rowe. I agree with the History, Examination, Assessment and Plan documented above with any addition or exceptions noted below. Continue essentially ventilation and anticoagulation. On bilevel per pulm. Pull ing >>600 cc with IBW 75 kg.
[2020-06-23 07:43] LABS: Actual Bicarbonate (HCO3a) 23.1 mEq/L (22-28); Base Excess (BEa) 0.1 mEq/L (-2.0 to +3.0); CO2 Tension 31.9 mmHg (35.0-45.0); Calcium, Ionized (arterial) 1.14 mmol/L (1.12-1.30); Carboxyhemoglobin (COHb) 0.2 gm% (0.0-3.0); Hemoglobin (Hb) 11.8 g/dL (14.0-18.0); O2 Tension (PaO2), arterial 158.5 mmHg (> 80.0); Potassium - ABG Lab 4.32 mmol/L (3.70-5.30); pH, Arterial 7.48 (7.35-7.45)
[2020-06-23 07:44] LABS: Puncture Site RRA
[2020-06-23 07:45] LABS: ALV-art Gradient 229.425 mmHg (0-20)
--- NOTE | 2020-06-23 08:44 | RAD ---
Chest AP view INDICATION: Daily cc examination COMPARISON: June 22, 2020 FINDINGS: Lungs: Diffuse interstitial airspace opacities persist and are likely stable Cardiac silhouette: Cardiomegaly is stable Pulmonary vasculature: Pulmonary vascular congestion persists Pleural spaces: Small bilateral pleural effusions persist Upper abdomen: No abnormality seen. Osseous structures: No acute osseous abnormality. Additional findings: Patient is intubated with gastric catheter placement IMPRESSION: Persistent diffuse interstitial and airspace opacities throughout both lungs suspicious for either pn eumonia or edema. Persistent cardiomegaly and small bilateral pleural effusions. Stable tubes and lines. No pneumothorax.
[2020-06-23] MEDS: Clopidogrel Bisulfate 75 MG TAB PO SCH (08:52)
[2020-06-23] MEDS: Amlodipine 5 MG TAB PO SCH (08:53)
[2020-06-23] MEDS: Aspirin 81 mg Enteric Coated Tablet PO SCH (08:53)
[2020-06-23] MEDS: Ascorbic Acid 500 mg Chewable Tablet PER TUBE SCH (08:53)
[2020-06-23] MEDS: Pantoprazole 40 MG VIAL IVP SCH ×2 (08:54→20:50)
[2020-06-23] MEDS: Enoxaparin Sodium 120 MG/0.8 ML SYRINGE SC SCH ×2 (08:54→20:50)
[2020-06-23] MEDS: Zinc Sulfate 220 MG CAP PER TUBE SCH (08:55)
[2020-06-23] MEDS: Dexamethasone Sod Phosphate 4 MG in Sodium Chloride 0.9% 50 ML IVPB SCH ×2 (08:58→20:50)
[2020-06-23] MEDS: cefTRIAXone\\ROCEPHIN 2 GM in Sodium Chloride 0.9% 100 ML IVPB SCH (16:58)
--- NOTE | 2020-06-23 20:22 | PRG ---
DATE OF SERVICE: 06/23/2020 SUBJECTIVE: The patient remains mechanically ventilated and sedated. OBJECTIVE: VITAL SIGNS: Heart rate 60, blood pressure 150/75, FiO2 is back down to 55. He was proned again yesterday. LUNGS: Unchanged. HEART: Unchanged. ABDOMEN: Unchanged. LABORATORY DATA: White count 6.7, hemoglobin 11.6, platelets 86,000. Electrolytes are unremarkable. Liver enzymes were mildly elevated. C-reactive protein is 12.3. Chest x-ray is unchanged. IMPRESSION: 1. COVID pneumonia. 2. Pre-existing lung masses, PET negative. 3. History of coronary stenting. 4. History of coronary artery bypass grafting. 5. History of peripheral vascular disease. 6. Hypertension. 7. History of diastolic dysfunction. 8. History of renal artery stenosis. 9. History of smoking in the distant past, but no evidence of obstructive lung disease on pulmonary function tests. PLAN: Continue supportive care. I would not be surprised if he does not have a tracheostomy before this is all over, given the usual slow resolution on the pneumonia that is severe enough to lead to intubation. Critical care time 30 min. Job ID: [id number] MTDD
[2020-06-23] MEDS: Atorvastatin Calcium 40 MG TAB PER TUBE SCH (20:49)
[2020-06-23] MEDS: Cholecalciferol 1,000 UNITS (25 MCG) TAB PER TUBE SCH (20:49)
[2020-06-23] MEDS: Azithromycin 250 MG, Admixture Fee 1 EACH in Sodium Chloride 0.9% 250 ML 250 ML IVPB SCH (20:55)
[2020-06-24] MEDS: Propofol 1,000 MG/100 ML VIAL IV PRN ×3 (03:44→21:55)
[2020-06-24 04:26] LABS: Hemoglobin 10.8 g/dL (14.0-18.0); Mean Corpuscular HGB CONC 31.9 g/dL (32.0-36.0); Mean Corpuscular Hemoglobin 32.2 pg (27.0-31.0); Platelet Count 95 thou/uL (130-400); RBC Distribution Width 13.9 % (11.5-14.5); Red Blood Cell (RBC) Count 3.35 mill/uL (4.70-6.10); White Blood Cell (WBC) Count 5.3 thou/uL (4.8-10.8)
[2020-06-24 04:41] LABS: Band 10 % (5-11); Lymphocytes 2 % (21-51); MDiff Complete? YES; Monocytes 8 % (0-10); Myelocyte 2 % (0-0); Neutrophil 78 % (42-75)
[2020-06-24 04:48] LABS: Troponin I 0.183 ng/mL (< 0.028)
[2020-06-24 04:53] LABS: ALT (SGPT) 94 U/L (8-55); AST (SGOT) 61 U/L (5-34); Albumin 2.6 g/dL (3.4-4.8); Alkaline Phosphatase 66 U/L (40-110); Anion Gap 14 mmol/L (10-20); BUN (Urea Nitrogen) 21 mg/dL (8.4-25.7); Bilirubin, Total 0.8 mg/dL (0.2-1.2); CRP (Inflammatory) 8.41 mg/dL (= or < 0.5); Calc. Creatinine Clearance 170 mL/min (70-130); Carbon Dioxide 25 mmol/L (23-31); Chloride 105 mmol/L (98-107); Globulin 3.2 g/dL (2.4-3.5); Glucose 146 mg/dL (80-115); Potassium 4.2 mmol/L (3.5-5.1); Protein, Total 5.8 g/dL (5.8-8.1); Sodium 140 mmol/L (136-145)
[2020-06-24 07:10] LABS: Actual Bicarbonate (HCO3a) 26.2 mEq/L (22-28); Base Excess (BEa) 0.8 mEq/L (-2.0 to +3.0); CO2 Tension 44.5 mmHg (35.0-45.0); Calcium, Ionized (arterial) 1.17 mmol/L (1.12-1.30); Carboxyhemoglobin (COHb) 0.8 gm% (0.0-3.0); Hemoglobin (Hb) 13.2 g/dL (14.0-18.0); O2 Tension (PaO2), arterial 61.5 mmHg (> 80.0); Potassium - ABG Lab 4.12 mmol/L (3.70-5.30); pH, Arterial 7.39 (7.35-7.45)
[2020-06-24 07:44] LABS: Puncture Site RRA
[2020-06-24 07:45] LABS: ALV-art Gradient 275.025 mmHg (0-20)
--- NOTE | 2020-06-24 07:58 | RAD ---
Chest AP view INDICATION: Daily CCU evaluation COMPARISON: Prior exam dated June 23, 2020 FINDINGS: Lungs: There is improvement in the bilateral interstitial and airspace opacities appear more promine nt airspace disease remains within the left lower lobe Cardiac silhouette: Cardiomegaly persists Pulmonary vasculature: Pulmonary vascular congestion appears slightly less pronounced. Pleural spaces: Bilateral pleural effusions have decreased in size, now small. No pneumothorax is ev ident. Upper abdomen: No abnormality seen. Osseous structures: There is scattered degenerative and osteoarthritic change present. Additional findings: ET tube and gastric catheter unchanged. Post-CABG changes similar. IMPRESSION: Improving suspected CHF.
--- NOTE | 2020-06-24 08:31 | PDOC.FM ---
- Subjective Subjective: Intubated and sedated. Per RN at evening sedation vacation moved all 4 limbs. Has not had sedation vacation this morning. - Objective MAR Reviewed: Yes Vital Signs & Weight: Vital Signs (12 hours) Temp Pulse Resp Pulse Ox 06/24/20 07:43 108 H 06/24/20 06:00 18 06/24/20 04:00 98 F 18 06/24/20 02:18 53 L 18 94 L 06/24/20 02:00 18 06/24/20 00:00 98.1 F 18 06/23/20 22:00 23 H 06/23/20 21:41 86 19 97 Weight Admit Weight 121.109 kg Weight 190.4 kg Most Recent Monitor Data Heart Rate from ECG 60 NIBP 119/62 NIBP BP-Mean 81 Respiration from ECG 18 SpO2 94 I&O: 06/23/20 06/24/20 06/25/20 06:59 06:59 06:59 Intake Total 1699.3 1873.1 Output Total 1530 1235 Balance 169.3 638.1 Result Diagrams: 06/24/20 03:55 06/24/20 03:55 Radiology Reviewed by me: Yes (CXR improving, suspeced CHF ) Phys Exam - Physical Examination Constitutional: NAD HEENT: moist MMs Bruise on nose present from prone positioning Neck: no nodes Fine crackles bilaterally Cardiovascular: RRR, no significant murmur Gastrointestinal: soft, non-tender Musculoskeletal: no edema Neurological: non-focal Skin: no rash, normal turgor Dx/Plan (1) Acute respiratory failure with hypoxia Code(s): J96.01 - ACUTE RESPIRATORY FAILURE WITH HYPOXIA Status: Acute (2) COVID-19 Code(s): U07.1 - COVID-19 Status: Acute (3) Pneumonia due to COVID-19 virus Code(s): U07.1 - COVID-19; J12.89 - OTHER VIRAL PNEUMONIA Status: Acute (4) CAD (coronary artery disease) Code(s): I25.10 - ATHSCL HEART DISEASE OF [place] CORONARY ARTERY W/O ANG PCTRS Status: Acute (5) HLD (hyperlipidemia) Code(s): E78.5 - HYPERLIPIDEMIA, UNSPECIFIED Status: Acute (6) HTN (hypertension) Code(s): I10 - ESSENTIAL (PRIMARY) HYPERTENSION Status: Acute (7) MALCOM (obstructive sleep apnea) Code(s): G47.33 - OBSTRUCTIVE SLEEP APNEA (ADULT) (PEDIATRIC) Status: Acute - Plan Plan: General: - NAD, well-sedated. Per RN moves all 4 extremities. Neuro: - On Propofol and Fentanyl for sedation and pain management. Respiratory: - Intubated 06/19/20. On BiLevel 17/05. FiO2 55%. Rate 18. TV 600s. - Symptom onset 06/15. Positive test on 06/17. - COVID 19 PNA: On Dexamethasone, Duonebs, therapeutic lovenox, and azithromycin. - CXR showed stable infiltrates. - Mediastinal lymphnode enlarged on CTA, sees Dr. Deluna outpatient and will need outpatient f/u. Cardiovascular: - Restarted amlodipine. Holding home hydralazine and coreg. Will monitor pressures today and consider restarting home antihypertensives if pressures are elevated. - Elevated troponin - on therapeutic lovenox (100mg BID) - Initial EKG showed LBBB. EKG from 03/10 showed LBBB. During that hospitalization he underwent catheterization with stent placement. H/o CABG in 2009 or 2010. - Consulted cardiology, appreciate recommendations. - Increased atorvastatin to 80mg Gastrointestinal: - On Protonix for GI ppx. Nutrition: - Tube feeds initiated 06/20. - Rate of 50. Genitourinary/Renal: - UA significant for 4-6 WBC, 1+ bacteria, casts, and mucus. - UCx negative. Hematologic: - On lovenox. (100mg BID) Platelets stable ~90s. 95 this morning. Infectious disease: - Urine and blood cx showed no growth @ 48 hours. - On azithromycin (06/20) - On rocephin (06/21) Lines/Tubes: - Endotracheal tube 06/19 - L femoral central line 06/19 - 20g LAC 06/19 - Brizuela catheter 06/19 Dispo: Stable, critically ill, in CCU. Code: Full Diet: Tube feeds PCP: Joe Duongendum - Attending - Attending Attestation Date/Time: 06/24/20 8792 I personally evaluated the patient and discussed the management with Dr. Dominguez. I agree with the History, Examination, Assessment and Plan documented above with any addition or exceptions noted below. Continue lung protective ventilation if possible. Supportive care.
[2020-06-24] MEDS: Zinc Sulfate 220 MG CAP PER TUBE SCH (08:35)
[2020-06-24] MEDS: Aspirin 81 mg Enteric Coated Tablet PO SCH (08:35)
[2020-06-24] MEDS: Dexamethasone Sod Phosphate 4 MG in Sodium Chloride 0.9% 50 ML IVPB SCH ×2 (08:35→20:43)
[2020-06-24] MEDS: Amlodipine 5 MG TAB PO SCH (08:36)
[2020-06-24] MEDS: Ascorbic Acid 500 mg Chewable Tablet PER TUBE SCH (08:36)
[2020-06-24] MEDS: Clopidogrel Bisulfate 75 MG TAB PO SCH (08:36)
[2020-06-24] MEDS: Pantoprazole 40 MG VIAL IVP SCH ×2 (08:36→20:44)
[2020-06-24] MEDS: Enoxaparin Sodium 120 MG/0.8 ML SYRINGE SC SCH ×2 (08:38→20:43)
[2020-06-24] MEDS: fentaNYL Citrate/PF 2,000 MCG in Sodium Chloride 0.9% 60 ML IV SCH ×2 (09:45→21:06)
[2020-06-24] MEDS: Lorazepam 2 MG/ML VIAL SLOW IVP PRN ×2 (09:46→17:21)
[2020-06-24] MEDS: Vecuronium 10 MG VIAL IVP PRN ×2 (09:46→20:44)
[2020-06-24] MEDS ORDERED: Furosemide 100 MG/10 ML VIAL SLOW IVP SCH (11:30)
--- NOTE | 2020-06-24 11:54 | PRG ---
DATE OF SERVICE: 06/24/2020 OBJECTIVE: VITAL SIGNS: Mr. Hairston heart rate is in the 60s, respiratory rate is 12, oximetry is 94, blood pressure 173/76. LUNGS: Remarkable for coarse equal breath sounds. HEART: Regular rhythm. ABDOMEN: Soft. LABORATORY DATA: White count 5.3, hemoglobin 10.8, platelets 95,000. Electrolytes are normal. pH 7.39, CO2 44, PO2 61. Chest radiographs are essentially unchanged, maybe a little bit better today. IMPRESSION: 1. Respiratory failure, secondary to COVID-19. 2. History of coronary artery disease, bypass grafting in the past as well as a stent. Given his rapid decline and waxing and waning infiltrates, I would wonder if there is any component of congestive heart failure. a. His ejection fraction, I believe, had been preserved in the past. 3. He has adequate blood pressure, so I would suspect he would tolerate diuresis, so we will get some Lasix this morning. We will continue his ventilatory support. 4. Other problems include obesity and deconditioning. 5. A PET negative lung masses in his right base. 6. Peripheral vascular disease. 7. Hypertension. 8. History of diastolic dysfunction. 9. History of renal artery stenosis. 10. Distant smoking with no evidence of chronic obstructive pulmonary disease, on pulmonary function tests done in the office recently. Critical care time 35 min. Job ID: [id number] MTDD
[2020-06-24] MEDS: cefTRIAXone\\ROCEPHIN 2 GM in Sodium Chloride 0.9% 100 ML IVPB SCH (16:06)
[2020-06-24] MEDS: Cholecalciferol 1,000 UNITS (25 MCG) TAB PER TUBE SCH (20:43)
[2020-06-24] MEDS: Azithromycin 250 MG, Admixture Fee 1 EACH in Sodium Chloride 0.9% 250 ML 250 ML IVPB SCH (20:43)
[2020-06-24] MEDS: Atorvastatin Calcium 40 MG TAB PER TUBE SCH (20:44)
[2020-06-25] MEDS: Propofol 1,000 MG/100 ML VIAL IV PRN ×4 (01:51→19:38)
[2020-06-25 05:03] LABS: ALT (SGPT) 111 U/L (8-55); AST (SGOT) 70 U/L (5-34); Albumin 2.7 g/dL (3.4-4.8); Alkaline Phosphatase 77 U/L (40-110); Anion Gap 14 mmol/L (10-20); BUN (Urea Nitrogen) 28 mg/dL (8.4-25.7); Bilirubin, Total 0.9 mg/dL (0.2-1.2); Calc. Creatinine Clearance 245 mL/min (70-130); Calcium 8.2 mg/dL (7.8-10.44); Carbon Dioxide 27 mmol/L (23-31); Chloride 105 mmol/L (98-107); Globulin 3.2 g/dL (2.4-3.5); Glucose 151 mg/dL (80-115); Potassium 4.5 mmol/L (3.5-5.1); Protein, Total 5.9 g/dL (5.8-8.1); Sodium 141 mmol/L (136-145)
--- NOTE | 2020-06-25 06:01 | PDOC.FM ---
- Subjective Subjective: Stable overnight, no acute events. - Objective MAR Reviewed: Yes Vital Signs & Weight: Vital Signs (12 hours) Temp Pulse Resp Pulse Ox 06/25/20 04:00 98.4 F 15 06/25/20 03:12 61 06/25/20 02:00 12 06/25/20 01:31 64 16 97 06/25/20 01:25 63 06/25/20 00:00 97.8 F 14 06/24/20 22:11 70 12 94 L 06/24/20 22:07 74 06/24/20 22:00 12 06/24/20 20:00 98.7 F 18 90 L 06/24/20 18:51 62 12 92 L 06/24/20 18:48 61 Weight Admit Weight 121.109 kg Weight 190.4 kg Most Recent Monitor Data Heart Rate from ECG 63 NIBP 146/63 NIBP BP-Mean 90 Respiration from ECG 14 SpO2 94 I&O: 06/23/20 06/24/20 06/25/20 06:59 06:59 06:59 Intake Total 1699.3 1873.1 1265 Output Total 1530 1235 1110 Balance 169.3 638.1 155 Result Diagrams: 06/25/20 03:45 06/25/20 03:45 Radiology Reviewed by me: Yes Phys Exam - Physical Examination Constitutional: NAD HEENT: moist MMs Neck: no nodes Coarse breath sounds bilaterally. Crackles present. Cardiovascular: RRR, no significant murmur Gastrointestinal: soft, no distention Musculoskeletal: no edema Neurological: non-focal Skin: no rash, normal turgor Dx/Plan (1) Acute respiratory failure with hypoxia Code(s): J96.01 - ACUTE RESPIRATORY FAILURE WITH HYPOXIA Status: Acute (2) COVID-19 Code(s): U07.1 - COVID-19 Status: Acute (3) Pneumonia due to COVID-19 virus Code(s): U07.1 - COVID-19; J12.89 - OTHER VIRAL PNEUMONIA Status: Acute (4) CAD (coronary artery disease) Code(s): I25.10 - ATHSCL HEART DISEASE OF [place] CORONARY ARTERY W/O ANG PCTRS Status: Acute (5) HLD (hyperlipidemia) Code(s): E78.5 - HYPERLIPIDEMIA, UNSPECIFIED Status: Acute (6) HTN (hypertension) Code(s): I10 - ESSENTIAL (PRIMARY) HYPERTENSION Status: Acute (7) MALCOM (obstructive sleep apnea) Code(s): G47.33 - OBSTRUCTIVE SLEEP APNEA (ADULT) (PEDIATRIC) Status: Acute - Plan Plan: General: - NAD, well-sedated. Per RN moves all 4 extremities. Neuro: - On Propofol and Fentanyl for sedation and pain management. Respiratory: - Intubated 06/19/20. On AC, rate of 20, FiO2 50%, and PS 10/07. - Symptom onset 06/15. Positive test on 06/17. - COVID 19 PNA: On Dexamethasone, Duonebs, therapeutic lovenox, and azithromycin. - CXR showed stable infiltrates. - Mediastinal lymphnode enlarged on CTA, sees Dr. Deluna outpatient and will need outpatient f/u. Cardiovascular: - Restarted amlodipine. Holding home hydralazine and coreg. Will monitor pressures today and consider restarting home antihypertensives if pressures are elevated. - Elevated troponin - on therapeutic lovenox (100mg BID) - Initial EKG showed LBBB. EKG from 03/10 showed LBBB. During that hospitalizat ion he underwent catheterization with stent placement. H/o CABG in 2009 or 2010. - Consulted cardiology, appreciate recommendations. - Increased atorvastatin to 80mg Gastrointestinal: - On Protonix for GI ppx. Nutrition: - Tube feeds initiated 06/20. - Rate of 50. Genitourinary/Renal: - UA significant for 4-6 WBC, 1+ bacteria, casts, and mucus. - UCx negative. Hematologic: - On lovenox. (100mg BID) Platelets stable ~90s. 95 this morning. Infectious disease: - Urine and blood cx showed no growth @ 5 days. - On azithromycin (06/20) - On rocephin (06/21) Lines/Tubes: - Endotracheal tube 06/19 - L femoral central line 06/19 - 20g LAC 06/19 - Brizuela catheter 06/19 Dispo: Stable, critically ill, in CCU. Code: Full Diet: Tube feeds PCP: Joe Addendum - Attending - Attending Attestation Date/Time: 06/25/20 4166 I personally evaluated the patient and discussed the management with Dr. Rowe. I agree with the History, Examination, Assessment and Plan documented above with any addition or exceptions noted below. Acute respiratory failure secondary to COVID pneumonia- continue ICU care Remains guarded prognosis.
[2020-06-25 06:10] LABS: Band 10 % (5-11); Hemoglobin 11.1 g/dL (14.0-18.0); Lymphocytes 3 % (21-51); MDiff Complete? YES; Macrocytosis SLIGHT = 6-15 cells (100X) (0-5/hpf); Mean Corpuscular HGB CONC 31.9 g/dL (32.0-36.0); Mean Corpuscular Hemoglobin 33.1 pg (27.0-31.0); Mean Platelet Volume 8.9 fL (7.4-10.4); Monocytes 6 % (0-10); Neutrophil 81 % (42-75); Nucleated RBC 1 % (0); Platelet Count 111 thou/uL (130-400); Platelet Morphology Comment Appears Decreased; RBC Distribution Width 14.1 % (11.5-14.5); Red Blood Cell (RBC) Count 3.36 mill/uL (4.70-6.10); White Blood Cell (WBC) Count 7.5 thou/uL (4.8-10.8)
[2020-06-25 07:19] LABS: Actual Bicarbonate (HCO3a) 28.5 mEq/L (22-28); Base Excess (BEa) 2.8 mEq/L (-2.0 to +3.0); CO2 Tension 47.8 mmHg (35.0-45.0); Calcium, Ionized (arterial) 1.18 mmol/L (1.12-1.30); Carboxyhemoglobin (COHb) 0.9 gm% (0.0-3.0); Hemoglobin (Hb) 13.6 g/dL (14.0-18.0); Potassium - ABG Lab 4.41 mmol/L (3.70-5.30); pH, Arterial 7.39 (7.35-7.45)
[2020-06-25 08:08] LABS: O2 Tension (PaO2), arterial 55.2 mmHg (> 80.0); Puncture Site RRA
[2020-06-25] MEDS: Aspirin 81 mg Enteric Coated Tablet PO SCH (08:55)
[2020-06-25] MEDS: Lorazepam 2 MG/ML VIAL SLOW IVP PRN (08:55)
[2020-06-25] MEDS: Dexamethasone Sod Phosphate 4 MG in Sodium Chloride 0.9% 50 ML IVPB SCH ×2 (08:55→20:47)
[2020-06-25] MEDS: Zinc Sulfate 220 MG CAP PER TUBE SCH (08:55)
[2020-06-25] MEDS: Pantoprazole 40 MG VIAL IVP SCH ×2 (08:55→19:35)
[2020-06-25] MEDS: Clopidogrel Bisulfate 75 MG TAB PO SCH (08:55)
[2020-06-25] MEDS: Enoxaparin Sodium 120 MG/0.8 ML SYRINGE SC SCH ×2 (08:55→19:34)
[2020-06-25] MEDS: Amlodipine 5 MG TAB PO SCH (08:55)
[2020-06-25] MEDS: fentaNYL Citrate/PF 2,000 MCG in Sodium Chloride 0.9% 60 ML IV SCH ×2 (08:56→19:35)
--- NOTE | 2020-06-25 09:06 | RAD ---
PORTABLE CHEST: HISTORY: CCU followup on ventilator. COMPARISON: 06/24/2020. FINDINGS/IMPRESSION: ET tube and NG tube again noted. Cardiomegaly with postop sternotomy change. Vascular congestion. Left basilar opacification consistent with atelectasis or infiltrate superimposed on CHF. Not signif icantly changed from yesterday. POS: AGW
--- NOTE | 2020-06-25 09:49 | PRG ---
DATE OF SERVICE: 06/25/2020 This is 35 minutes critical care time. SUBJECTIVE: The patient remains intubated on mechanical ventilation for COVID-19 pneumonia. OBJECTIVE: VITAL SIGNS: His temperature is 98.4, pulse 61, blood pressure 142/61, sat 93%, 24-hour intake 2332, output 1285. HEENT: Unremarkable. NECK: No adenopathy or JVD. LUNGS: Diminished breath sounds throughout. CARDIOVASCULAR: S1 and S2, regular. ABDOMEN: Soft and nontender. EXTREMITIES: Trace edema throughout. LABORATORY DATA: ABG; pH 7.39, pCO2 of 47, pO2 of 55 that was on bilevel 27/12 with FiO2 of 50%. I have since changed him over to assist-control ventilation with a pressure of 20, inspiratory time of 1 second, PEEP of 12, and FiO2 of 50% with resultant and proven O2 sats of 96%. White blood cell count 7.5, hematocrit 34.8, and platelet count 111. Sodium 141, potassium 4.5, chloride 105, CO2 of 27, BUN 28, creatinine 0.8, glucose 151. Ferritin 8301. C-reactive protein 4.4. ASSESSMENT: 1. COVID-19 pneumonia with diffuse infiltrates on x-ray. 2. Acute respiratory failure requiring mechanical ventilation. 3. History of PET-negative lung masses in his right base. 4. Hypertension of diastolic heart dysfunction. 5. History of renal artery stenosis. PLAN: 1. Switch to assist-control ventilation to take away his work of breathing. 2. Continue antibiotics, anticoagulation, zinc, vitamin C, vitamin D, and dexamethasone. Not weanable at this time. Job ID: [id number]
--- NOTE | 2020-06-25 11:23 | EKG ---
Test Reason : Blood Pressure : / mmHG Vent. Rate : 088 BPM Atrial Rate : 088 BPM P-R Int : 148 ms QRS Dur : 136 ms QT Int : 402 ms P-R-T Axes : 067 070 099 degrees QTc Int : 486 ms Normal sinus rhythm Possible Left atrial enlargement Non-specific intra-ventricular conduction block Abnormal ECG Confirmed by BIRGIT GRACIA ([id number]), food editor WAYNE LING ([id number]) on 06/25/2020 11:22:23 AM Referred By: Confirmed By:BIRGIT GRACIA
[2020-06-25] MEDS: cefTRIAXone\\ROCEPHIN 2 GM in Sodium Chloride 0.9% 100 ML IVPB SCH (16:11)
[2020-06-25] MEDS: Ascorbic Acid 500 mg Chewable Tablet PER TUBE SCH (16:49)
[2020-06-25] MEDS: Atorvastatin Calcium 40 MG TAB PER TUBE SCH (19:33)
[2020-06-25] MEDS: Cholecalciferol 1,000 UNITS (25 MCG) TAB PER TUBE SCH (19:34)
[2020-06-25] MEDS: Azithromycin 250 MG, Admixture Fee 1 EACH in Sodium Chloride 0.9% 250 ML 250 ML IVPB SCH (20:48)
[2020-06-26] MEDS: Acetaminophen 325 MG TAB PO PRN (00:40)
[2020-06-26] MEDS: Polyethylene Glycol 3350 17 GM Packet PER TUBE PRN ×2 (00:41→15:32)
[2020-06-26] MEDS: Propofol 1,000 MG/100 ML VIAL IV PRN ×4 (04:00→19:32)
[2020-06-26 05:30] LABS: ALT (SGPT) 138 U/L (8-55); AST (SGOT) 81 U/L (5-34); Albumin 2.7 g/dL (3.4-4.8); Alkaline Phosphatase 92 U/L (40-110); Anion Gap 14 mmol/L (10-20); BUN (Urea Nitrogen) 33 mg/dL (8.4-25.7); Bilirubin, Total 1.1 mg/dL (0.2-1.2); Calc. Creatinine Clearance 147 mL/min (70-130); Calcium 8.1 mg/dL (7.8-10.44); Carbon Dioxide 28 mmol/L (23-31); Chloride 103 mmol/L (98-107); Globulin 3.1 g/dL (2.4-3.5); Glucose 157 mg/dL (80-115); Potassium 4.2 mmol/L (3.5-5.1); Protein, Total 5.8 g/dL (5.8-8.1); Sodium 141 mmol/L (136-145)
[2020-06-26 05:42] LABS: Band 5 % (5-11); Hemoglobin 10.8 g/dL (14.0-18.0); Lymphocytes 3 % (21-51); MDiff Complete? YES; Mean Corpuscular HGB CONC 32.2 g/dL (32.0-36.0); Mean Corpuscular Hemoglobin 32.9 pg (27.0-31.0); Mean Platelet Volume 9.1 fL (7.4-10.4); Metamyelocyte 1 % (0-0); Monocytes 6 % (0-10); Myelocyte 3 % (0-0); Neutrophil 82 % (42-75); Platelet Count 124 thou/uL (130-400); RBC Distribution Width 14.4 % (11.5-14.5); Red Blood Cell (RBC) Count 3.29 mill/uL (4.70-6.10); White Blood Cell (WBC) Count 8.9 thou/uL (4.8-10.8)
--- NOTE | 2020-06-26 05:48 | PDOC.FM ---
- Subjective Subjective: Patient is stable this morning. On same ventilatory settings as yesterday. Currently on sedation break. He is able to answer yes and no. He is weak, but able to move hands and feet and follow commands. Spoke with patient's daughter after rounding about current status and addressed all questions. They will bring iPad here tomorrow for facetime use. - Objective MAR Reviewed: Yes Vital Signs & Weight: Vital Signs (12 hours) Temp Pulse Resp Pulse Ox 06/26/20 03:17 60 06/26/20 01:40 86 20 99 06/26/20 01:38 82 06/25/20 22:07 77 20 92 L 06/25/20 22:00 73 06/25/20 20:00 99.3 F 99 06/25/20 18:49 62 20 99 06/25/20 18:46 60 06/25/20 18:00 20 Weight Admit Weight 121.109 kg Weight 119.8 kg Most Recent Monitor Data Heart Rate from ECG 71 NIBP 126/65 NIBP BP-Mean 85 Respiration from ECG 20 SpO2 100 I&O: 06/24/20 06/25/20 06/26/20 06:59 06:59 06:59 Intake Total 1873.1 2332.7 1404 Output Total 1235 1285 3920 Balance 638.1 1047.7 -5396 Result Diagrams: 06/26/20 04:05 06/26/20 04:05 Radiology Reviewed by me: Yes (pending read. Appears to have minimally improved. ) Phys Exam - Physical Examination Constitutional: NAD HEENT: PERRLA, moist MMs Bruising and skin abrasion on nose and chin from proning. Neck: no nodes Respiratory: no wheezing, no rhonchi Fine crackles, clearer than yesterday. Cardiovascular: RRR, no significant murmur Gastrointestinal: soft Musculoskeletal: no edema Neurological: non-focal Psychiatric: normal affect Skin: no rash, normal turgor Dx/Plan (1) Acute respiratory failure with hypoxia Code(s): J96.01 - ACUTE RESPIRATORY FAILURE WITH HYPOXIA Status: Acute (2) COVID-19 Code(s): U07.1 - COVID-19 Status: Acute (3) Pneumonia due to COVID-19 virus Code(s): U07.1 - COVID-19; J12.89 - OTHER VIRAL PNEUMONIA Status: Acute (4) CAD (coronary artery disease) Code(s): I25.10 - ATHSCL HEART DISEASE OF [place] CORONARY ARTERY W/O ANG PCTRS Status: Acute (5) HLD (hyperlipidemia) Code(s): E78.5 - HYPERLIPIDEMIA, UNSPECIFIED Status: Acute (6) HTN (hypertension) Code(s): I10 - ESSENTIAL (PRIMARY) HYPERTENSION Status: Acute (7) MALCOM (obstructive sleep apnea) Code(s): G47.33 - OBSTRUCTIVE SLEEP APNEA (ADULT) (PEDIATRIC) Status: Acute - Plan Plan: General: - NAD, well-sedated. Per RN moves all 4 extremities. Neuro: - On Propofol and Fentanyl for sedation and pain management. Respiratory: - Intubated 06/19/20. On AC, rate of 20, FiO2 50%, and PS 10/07. - Symptom onset 06/15. Positive test on 06/17. - COVID 19 PNA: On Dexamethasone, Duonebs, and therapeutic lovenox. - CXR showed stable infiltrates. - Mediastinal lymphnode enlarged on CTA, sees Dr. Deluna outpatient and will need outpatient f/u. Cardiovascular: - Restarted amlodipine. Holding home hydralazine and coreg. Will monitor pressures today and consider restarting home Coreg if pressures are elevated. - Elevated troponin - on therapeutic lovenox (100mg BID) - Consulted cardiology, appreciate recommendations. Gastrointestinal: - On Protonix for GI ppx. - Has not had BM despite miralax. Will add suppositories and enemas prn. Nutrition: - Tube feeds initiated 06/20. - Rate of 40. Tolerating well. Genitourinary/Renal: - s/p 60mg IV lasix 06/24. Diuresed 2.5L yesterday. Will hold off on further lasix as his urine is very concentrated. Hematologic: - On lovenox. (100mg BID) Platelets stable. Infectious disease: - Urine and blood cx showed no growth @ 5 days. - On azithromycin (06/20 - 06/26) - On rocephin (06/21) for 7 days. - Will discuss d/c antimicrobials. Lines/Tubes: - Endotracheal tube 06/19 - L femoral central line 06/19 - 20g LAC 06/19 - Brizuela catheter 06/19 Dispo: Stable, critically ill, in CCU. Code: Full Diet: Tube feeds PCP: Joe Addendum - Attending - Attending Attestation Date/Time: 06/26/20 6936 I personally evaluated the patient and discussed the management with Dr. Rowe. I agree with the History, Examination, Assessment and Plan documented above with any addition or exceptions noted below. COVID PNA and acute hypoxic resp failure- improving. Appreciate pulviet porter for the vent. Sedation holiday this am shows that he follows commands and moves all extremities. HTN- consider restart of coreg if bp remains elevated.
[2020-06-26] MEDS: fentaNYL Citrate/PF 2,000 MCG in Sodium Chloride 0.9% 60 ML IV SCH ×2 (06:29→19:31)
[2020-06-26 07:16] LABS: Actual Bicarbonate (HCO3a) 29.1 mEq/L (22-28); Base Excess (BEa) 4.6 mEq/L (-2.0 to +3.0); CO2 Tension 42.4 mmHg (35.0-45.0); Calcium, Ionized (arterial) 1.15 mmol/L (1.12-1.30); Carboxyhemoglobin (COHb) 1.2 gm% (0.0-3.0); O2 Tension (PaO2), arterial 82.2 mmHg (> 80.0); Potassium - ABG Lab 4.08 mmol/L (3.70-5.30); pH, Arterial 7.45 (7.35-7.45)
[2020-06-26 07:38] LABS: Puncture Site RRA
[2020-06-26] MEDS: Pantoprazole 40 MG VIAL IVP SCH ×2 (08:47→20:01)
[2020-06-26] MEDS: Ascorbic Acid 500 mg Chewable Tablet PER TUBE SCH (08:47)
[2020-06-26] MEDS: Zinc Sulfate 220 MG CAP PER TUBE SCH (08:47)
[2020-06-26] MEDS: Aspirin 81 mg Enteric Coated Tablet PO SCH (08:47)
[2020-06-26] MEDS: Enoxaparin Sodium 120 MG/0.8 ML SYRINGE SC SCH ×2 (08:47→20:01)
[2020-06-26] MEDS: Amlodipine 5 MG TAB PO SCH (08:47)
[2020-06-26] MEDS: Clopidogrel Bisulfate 75 MG TAB PO SCH (08:47)
[2020-06-26] MEDS: Dexamethasone Sod Phosphate 4 MG in Sodium Chloride 0.9% 50 ML IVPB SCH ×2 (10:24→20:00)
--- NOTE | 2020-06-26 10:48 | RAD ---
AP CHEST: HISTORY: CCU followup. Pneumonia followup. COMPARISON: 06/25/2020. FINDINGS: ET tube remains in place. Cardiomegaly with vascular congestion again noted. Hazy infiltrates in th e lower lung sheikh appear improved. Probable small effusions. IMPRESSION: Evidence of some interval improvement in the appearance of the chest. POS: AGW
--- NOTE | 2020-06-26 11:29 | PRG ---
DATE OF SERVICE: 06/26/2020 Thirty five minutes critical care time. SUBJECTIVE: The patient remains intubated, on mechanical ventilation. He will wake up and follow commands for me. PHYSICAL EXAMINATION: VITAL SIGNS: Temperature 97.4, pulse 74, respirations 20, O2 saturation 100%, blood pressure 146/70. He is currently on assist control, rate 20, inspiratory pressure 20, with a PEEP of 12. I was able to lower his inspiratory pressure to 17 and his PEEP to 10 because his oxygenation had improved significantly overnight. HEENT: Unremarkable. NECK: No adenopathy or JVD. LUNGS: Fairly clear anteriorly. CARDIOVASCULAR: S1 and S2, regular. ABDOMEN: Soft. EXTREMITIES: No edema. DIAGNOSTIC STUDIES: We are starting to see clearing of his x-ray. His ABG shows a pH of 7.45, pCO2 of 42, PO2 of 82, on assist-control, rate 20, with FiO2 of 50%. White blood cell count 8.9, hematocrit 33.7, and platelet count 124. Sodium 141, potassium 4.2, chloride 103, CO2 of 28, BUN 33, creatinine 0.8, glucose 157. Ferritin has fallen to 7351. C-reactive protein is 5.8. ASSESSMENT: 1. COVID-19 pneumonia with diffuse infiltrates that have improved overnight after switching him to assist-control ventilation. 2. Acute respiratory failure requiring mechanical ventilation. 3. History of diastolic heart dysfunction. PLAN: We are seeing marked improvement. Based on that, I will decrease pressures. We will continue him on enoxaparin, dexamethasone, vitamin C, vitamin D, and zinc. Hopefully, we can work toward extubation over the next 48 hours. Job ID: [id number]
[2020-06-26] MEDS: Glycerin Adult Supp. (12 ct jar) PR PRN (15:25)
[2020-06-26] MEDS: cefTRIAXone\\ROCEPHIN 2 GM in Sodium Chloride 0.9% 100 ML IVPB SCH (17:10)
[2020-06-26] MEDS: Atorvastatin Calcium 40 MG TAB PER TUBE SCH (20:00)
[2020-06-26] MEDS: Cholecalciferol 1,000 UNITS (25 MCG) TAB PER TUBE SCH (20:01)
[2020-06-27] MEDS: Propofol 1,000 MG/100 ML VIAL IV PRN ×5 (01:19→21:26)
[2020-06-27 05:55] LABS: ALT (SGPT) 109 U/L (8-55); AST (SGOT) 53 U/L (5-34); Albumin 2.5 g/dL (3.4-4.8); Alkaline Phosphatase 90 U/L (40-110); Anion Gap 12 mmol/L (10-20); BUN (Urea Nitrogen) 34 mg/dL (8.4-25.7); Calc. Creatinine Clearance 0 mL/min (70-130); Calcium 8.1 mg/dL (7.8-10.44); Carbon Dioxide 29 mmol/L (23-31); Chloride 103 mmol/L (98-107); Globulin 3.2 g/dL (2.4-3.5); Glucose 145 mg/dL (80-115); Potassium 4.3 mmol/L (3.5-5.1); Protein, Total 5.7 g/dL (5.8-8.1); Sodium 140 mmol/L (136-145)
--- NOTE | 2020-06-27 07:23 | PDOC.FM ---
- Subjective Subjective: Doing well this morning. On light sedation. Able to answer yes/no questions and move all 4 limbs. - Objective MAR Reviewed: Yes Vital Signs & Weight: Vital Signs (12 hours) Temp Pulse Resp Pulse Ox 06/27/20 06:00 20 06/27/20 04:00 97.8 F 20 06/27/20 03:42 66 06/27/20 02:00 20 06/27/20 01:06 65 20 94 L 06/27/20 01:05 65 06/27/20 00:00 99.0 F 20 06/26/20 22:29 62 20 95 06/26/20 22:27 63 06/26/20 22:00 20 06/26/20 20:00 99.5 F 20 93 L Weight Admit Weight 121.109 kg Weight 117.6 kg Most Recent Monitor Data Heart Rate from ECG 55 NIBP 122/54 NIBP BP-Mean 76 Respiration from ECG 20 SpO2 96 I&O: 06/26/20 06/27/20 06/28/20 06:59 06:59 06:59 Intake Total 5 1782 Output Total 4065 1560 -1989 222 Result Diagrams: 06/27/20 04:31 06/27/20 04:31 Radiology Reviewed by me: Yes (Interval improvement. ) Phys Exam - Physical Examination Constitutional: NAD HEENT: PERRLA, moist MMs Dried, crusted blood on nose. Neck: no nodes Respiratory: no wheezing Clearer to auscultation Cardiovascular: RRR, no significant murmur Gastrointestinal: soft, non-tender Musculoskeletal: no edema Neurological: non-focal Psychiatric: normal affect Skin: no rash Dx/Plan (1) Acute respiratory failure with hypoxia Code(s): J96.01 - ACUTE RESPIRATORY FAILURE WITH HYPOXIA Status: Acute (2) COVID-19 Code(s): U07.1 - COVID-19 Status: Acute (3) Pneumonia due to COVID-19 virus Code(s): U07.1 - COVID-19; J12.89 - OTHER VIRAL PNEUMONIA Status: Acute (4) CAD (coronary artery disease) Code(s): I25.10 - ATHSCL HEART DISEASE OF [place] CORONARY ARTERY W/O ANG PCTRS Status: Acute (5) HLD (hyperlipidemia) Code(s): E78.5 - HYPERLIPIDEMIA, UNSPECIFIED Status: Acute (6) HTN (hypertension) Code(s): I10 - ESSENTIAL (PRIMARY) HYPERTENSION Status: Acute (7) MALCOM (obstructive sleep apnea) Code(s): G47.33 - OBSTRUCTIVE SLEEP APNEA (ADULT) (PEDIATRIC) Status: Acute - Plan Plan: General: - NAD, well-sedated. Per RN moves all 4 extremities. Neuro: - On Propofol and Fentanyl for sedation and pain management. Respiratory: - Intubated 06/19/20. On AC rate of 20, peep of 12 and FiO2 of 40% - Symptom onset 06/15. Positive test on 06/17. - COVID 19 PNA: On Dexamethasone, Duonebs, and therapeutic lovenox. - CXR showed interval improvement. - Mediastinal lymphnode enlarged on CTA, sees Dr. Deluna outpatient and will need outpatient f/u. - Per Dr. Gutierrez's note yesterday, showing signs of being weanable. Cardiovascular: - Restarted amlodipine. Holding home hydralazine and coreg. Will monitor pressures today and consider restarting home Coreg if pressures are elevated. - Elevated troponin - on therapeutic lovenox (100mg BID) - Consulted cardiology, appreciate recommendations. Gastrointestinal: - On Protonix for GI ppx. Nutrition: - Tube feeds initiated 06/20. - Rate of 40. Tolerating well. Genitourinary/Renal: - s/p 60mg IV lasix 06/24. Hematologic: - On lovenox. (100mg BID) Platelets stable. Infectious disease: - Urine and blood cx showed no growth @ 5 days. - On azithromycin (06/20 - 06/26) - On rocephin (06/21) for 7 days. - Will d/c abx @ 7 days. Lines/Tubes: - Endotracheal tube 06/19 - L femoral central line 06/19 - 20g LAC 06/19 - Brizuela catheter 06/19 Dispo: Stable, critically ill, in CCU. Code: Full Diet: Tube feeds PCP: Joe Addendum - Attending - Attending Attestation Date/Time: 06/27/20 4818 I personally evaluated the patient and discussed the management with Dr. Rowe. I agree with the History, Examination, Assessment and Plan documented above with any addition or exceptions noted below. Patient continues with critical illness and hypoxic resp failure 2/2 COVID. Continues on vent, managed by Pulm. Continue supportive treatment of his COVID. UOP adequate. Labs overall stable.
[2020-06-27 08:54] LABS: Actual Bicarbonate (HCO3a) 26.8 mEq/L (22-28); Base Excess (BEa) 2.4 mEq/L (-2.0 to +3.0); CO2 Tension 40.9 mmHg (35.0-45.0); Calcium, Ionized (arterial) 1.13 mmol/L (1.12-1.30); Carboxyhemoglobin (COHb) 1.3 gm% (0.0-3.0); Hemoglobin (Hb) 11.4 g/dL (14.0-18.0); Potassium - ABG Lab 4.17 mmol/L (3.70-5.30); pH, Arterial 7.44 (7.35-7.45)
[2020-06-27 08:56] LABS: O2 Tension (PaO2), arterial 54.5 mmHg (> 80.0)
[2020-06-27 08:57] LABS: ALV-art Gradient 179.575 mmHg (0-20); Puncture Site RBA
[2020-06-27] MEDS: fentaNYL Citrate/PF 2,000 MCG in Sodium Chloride 0.9% 60 ML IV SCH ×2 (08:58→21:24)
[2020-06-27] MEDS: Aspirin 81 mg Enteric Coated Tablet PO SCH (08:59)
[2020-06-27] MEDS: Amlodipine 5 MG TAB PO SCH (08:59)
[2020-06-27] MEDS: Ascorbic Acid 500 mg Chewable Tablet PER TUBE SCH (08:59)
[2020-06-27] MEDS: Zinc Sulfate 220 MG CAP PER TUBE SCH (08:59)
[2020-06-27] MEDS: Enoxaparin Sodium 120 MG/0.8 ML SYRINGE SC SCH ×2 (08:59→21:26)
[2020-06-27] MEDS: Pantoprazole 40 MG VIAL IVP SCH ×2 (08:59→21:26)
[2020-06-27] MEDS: Clopidogrel Bisulfate 75 MG TAB PO SCH (08:59)
[2020-06-27] MEDS: Dexamethasone Sod Phosphate 4 MG in Sodium Chloride 0.9% 50 ML IVPB SCH ×2 (09:01→21:26)
[2020-06-27 09:10] LABS: Band 5 % (5-11); Hemoglobin 10.3 g/dL (14.0-18.0); Lymphocytes 10 % (21-51); MDiff Complete? YES; Macrocytosis SLIGHT = 6-15 cells (100X) (0-5/hpf); Mean Corpuscular HGB CONC 32.1 g/dL (32.0-36.0); Mean Corpuscular Hemoglobin 32.5 pg (27.0-31.0); Mean Platelet Volume 9.3 fL (7.4-10.4); Metamyelocyte 3 % (0-0); Monocytes 7 % (0-10); Myelocyte 1 % (0-0); Neutrophil 74 % (42-75); Platelet Count 133 thou/uL (130-400); Platelet Morphology Comment Appears Adequate; RBC Distribution Width 14.5 % (11.5-14.5); Red Blood Cell (RBC) Count 3.16 mill/uL (4.70-6.10); White Blood Cell (WBC) Count 8.1 thou/uL (4.8-10.8)
--- NOTE | 2020-06-27 14:13 | PRG ---
DATE OF SERVICE: 06/27/2020 SUBJECTIVE: Lucy remains ventilated. He is on assist control. OBJECTIVE: VITAL SIGNS: Respiratory rate is 20, FiO2 is at 40, blood pressure 126/51, heart rate in the 50s. LUNGS: Remarkable for coarse equal breath sounds. HEART: Regular rhythm. ABDOMEN: Soft. LABORATORY DATA: White count 8.1, hemoglobin 10.3, platelets 133. Electrolytes are unremarkable. IMPRESSION: 1. COVID pneumonia. 2. ? Component of congestive heart failure, BNP of 32, argues against that. Suppose if he got ischemic, we could miss that. Overall, he is stable, but not ready for weaning or extubation. Critical care time 30 min. Job ID: [id number] MTDD
[2020-06-27] MEDS: Glycerin Adult Supp. (12 ct jar) PR PRN (15:10)
[2020-06-27] MEDS: cefTRIAXone\\ROCEPHIN 2 GM in Sodium Chloride 0.9% 100 ML IVPB SCH (16:00)
[2020-06-27] MEDS: Atorvastatin Calcium 40 MG TAB PER TUBE SCH (21:27)
[2020-06-27] MEDS: Cholecalciferol 1,000 UNITS (25 MCG) TAB PER TUBE SCH (21:27)
[2020-06-28] MEDS: Propofol 1,000 MG/100 ML VIAL IV PRN ×4 (02:37→22:04)
[2020-06-28 05:00] LABS: ALT (SGPT) 104 U/L (8-55); AST (SGOT) 50 U/L (5-34); Albumin 2.8 g/dL (3.4-4.8); Alkaline Phosphatase 109 U/L (40-110); Anion Gap 14 mmol/L (10-20); BUN (Urea Nitrogen) 33 mg/dL (8.4-25.7); Calc. Creatinine Clearance 153 mL/min (70-130); Calcium 8.5 mg/dL (7.8-10.44); Carbon Dioxide 28 mmol/L (23-31); Chloride 101 mmol/L (98-107); Globulin 3.6 g/dL (2.4-3.5); Glucose 155 mg/dL (80-115); Potassium 4.6 mmol/L (3.5-5.1); Protein, Total 6.4 g/dL (5.8-8.1); Sodium 138 mmol/L (136-145)
[2020-06-28 05:21] LABS: Band 5 % (5-11); Hemoglobin 11.2 g/dL (14.0-18.0); Lymphocytes 7 % (21-51); MDiff Complete? YES; Mean Corpuscular HGB CONC 32.3 g/dL (32.0-36.0); Mean Corpuscular Hemoglobin 32.6 pg (27.0-31.0); Mean Platelet Volume 9.2 fL (7.4-10.4); Monocytes 5 % (0-10); Myelocyte 1 % (0-0); Neutrophil 82 % (42-75); Platelet Count 143 thou/uL (130-400); RBC Distribution Width 14.5 % (11.5-14.5); Red Blood Cell (RBC) Count 3.44 mill/uL (4.70-6.10); White Blood Cell (WBC) Count 12.2 thou/uL (4.8-10.8)
[2020-06-28] MEDS ORDERED: Fleet Enema 133 ML BOT FS SCH (05:45)
--- NOTE | 2020-06-28 08:34 | PDOC.FM ---
- Subjective Subjective: Stable this morning. Awake and alert on ventilator. Able to answer yes/no questions, move hands and feet, and remembers details from yesterday. Denies pain. He endorses that he is uncomfortable. - Objective MAR Reviewed: Yes Vital Signs & Weight: Vital Signs (12 hours) Temp Pulse Resp Pulse Ox 06/28/20 06:00 20 06/28/20 04:00 99.4 F 20 06/28/20 02:20 72 20 99 06/28/20 02:00 99.8 F H 20 06/28/20 00:00 100.1 F H 20 06/27/20 22:18 66 20 98 06/27/20 22:00 20 Weight Admit Weight 121.109 kg Weight 118.3 kg Most Recent Monitor Data Heart Rate from ECG 84 NIBP 139/81 NIBP BP-Mean 100 Respiration from ECG 22 SpO2 93 I&O: 06/27/20 06/28/20 06/29/20 06:59 06:59 06:59 Intake Total 1782 2089 Output Total 1560 1650 Balance 222 439 Result Diagrams: 06/28/20 04:23 06/28/20 04:23 Radiology Reviewed by me: Yes (Awaiting official read. ) Phys Exam - Physical Examination Constitutional: NAD HEENT: PERRLA, moist MMs, sclera anicteric Neck: no nodes Respiratory: no wheezing, no rhonchi Fine crackles Dx/Plan (1) Acute respiratory failure with hypoxia Code(s): J96.01 - ACUTE RESPIRATORY FAILURE WITH HYPOXIA Status: Acute (2) COVID-19 Code(s): U07.1 - COVID-19 Status: Acute (3) Pneumonia due to COVID-19 virus Code(s): U07.1 - COVID-19; J12.89 - OTHER VIRAL PNEUMONIA Status: Acute (4) CAD (coronary artery disease) Code(s): I25.10 - ATHSCL HEART DISEASE OF [place] CORONARY ARTERY W/O ANG PCTRS Status: Acute (5) HLD (hyperlipidemia) Code(s): E78.5 - HYPERLIPIDEMIA, UNSPECIFIED Status: Acute (6) HTN (hypertension) Code(s): I10 - ESSENTIAL (PRIMARY) HYPERTENSION Status: Acute (7) MALCOM (obstructive sleep apnea) Code(s): G47.33 - OBSTRUCTIVE SLEEP APNEA (ADULT) (PEDIATRIC) Status: Acute - Plan Plan: General: - NAD, well-sedated. Moves all 4 extremities, answers yes/no. Neuro: - On Propofol and Fentanyl for sedation and pain management. Respiratory: - Intubated 06/19/20. On AC rate of 20, peep of 12 and FiO2 of 40% - Symptom onset 06/15. Positive test on 06/17. - COVID 19 PNA: On Dexamethasone, Duonebs, and therapeutic lovenox. - CXR showed interval improvement. - Mediastinal lymphnode enlarged on CTA, sees Dr. Deluna outpatient and will need outpatient f/u. - Pulm consulted, appreciate recs. Hopeful for ventilator weaning. Cardiovascular: - Restarted amlodipine. Holding home hydralazine and coreg. Will monitor pressures today and consider restarting home Coreg if pressures remain elevated. - Elevated troponin - on therapeutic lovenox (100mg BID) - Consulted cardiology, appreciate recommendations. Gastrointestinal: - On Protonix for GI ppx. Nutrition: - Tube feeds initiated 06/20. - Rate of 40. Tolerating well. Genitourinary/Renal: - s/p 60mg IV lasix 06/24. Hematologic: - On lovenox. (100mg BID) Platelets stable. Infectious disease: - Urine and blood cx showed no growth @ 5 days. - On azithromycin (06/20 - 06/26) - On rocephin (06/21) for 7 days. - Will d/c abx @ 7 days. Lines/Tubes: - Endotracheal tube 06/19 - L femoral central line 06/19 - 20g LAC 06/19 - Brizuela catheter 06/19 Dispo: Stable, critically ill, in CCU. Code: Full Diet: Tube feeds PCP: Joe Addendum - Attending - Attending Attestation Date/Time: 06/28/20 4875 I personally evaluated the patient and discussed the management with Dr. Rowe. I agree with the History, Examination, Assessment and Plan documented above with any addition or exceptions noted below. Patient stable. Continue vent mgmt per Pulm for his hypoxia 2/2 COVID pneumonia. Other labs stable at this time. Continue usual COVID care.
[2020-06-28 08:51] LABS: Actual Bicarbonate (HCO3a) 26.5 mEq/L (22-28); Base Excess (BEa) 3.1 mEq/L (-2.0 to +3.0); CO2 Tension 36.4 mmHg (35.0-45.0); Calcium, Ionized (arterial) 1.13 mmol/L (1.12-1.30); Carboxyhemoglobin (COHb) 0.8 gm% (0.0-3.0); Hemoglobin (Hb) 12.3 g/dL (14.0-18.0); pH, Arterial 7.48 (7.35-7.45)
[2020-06-28 08:52] LABS: O2 Tension (PaO2), arterial 57.4 mmHg (> 80.0); Puncture Site LRA
[2020-06-28] MEDS: Zinc Sulfate 220 MG CAP PER TUBE SCH (09:17)
[2020-06-28] MEDS: Pantoprazole 40 MG VIAL IVP SCH ×2 (09:17→20:25)
[2020-06-28] MEDS: Ascorbic Acid 500 mg Chewable Tablet PER TUBE SCH (09:17)
[2020-06-28] MEDS: Enoxaparin Sodium 120 MG/0.8 ML SYRINGE SC SCH ×2 (09:17→20:25)
[2020-06-28] MEDS: Clopidogrel Bisulfate 75 MG TAB PO SCH (09:17)
[2020-06-28] MEDS: Aspirin 81 mg Enteric Coated Tablet PO SCH (09:17)
[2020-06-28] MEDS: Polyethylene Glycol 3350 17 GM Packet PER TUBE PRN (09:17)
[2020-06-28] MEDS: Amlodipine 5 MG TAB PO SCH (09:18)
[2020-06-28] MEDS: Dexamethasone Sod Phosphate 4 MG in Sodium Chloride 0.9% 50 ML IVPB SCH ×2 (09:30→20:25)
--- NOTE | 2020-06-28 10:19 | RAD ---
Portable frontal chest radiograph: 06/28/2020 COMPARISON: 06/26/2020 HISTORY: Covid pneumonia, ventilated patient FINDINGS: Stable endotracheal tube and nasogastric tube. Stable midline sternotomy wires and mediasti nal clips. No pneumothorax is evident. Perihilar and bibasilar interstitial and groundglass opacity noted, left greater than right, not sign ificantly changed when compared to the prior exam. These findings are consistent with the provided history of Covid pneumonia. IMPRESSION: Stable appearance of the chest as detailed above.
[2020-06-28] MEDS: fentaNYL Citrate/PF 2,000 MCG in Sodium Chloride 0.9% 60 ML IV SCH ×2 (10:22→23:14)
--- NOTE | 2020-06-28 14:33 | PRG ---
DATE OF SERVICE: 06/28/2020 SUBJECTIVE: Justen awakens and nods and follows commands. OBJECTIVE: VITAL SIGNS: Heart rate is in the 60s, blood pressure 135/67, respiratory rate is 20. LUNGS: Unchanged. HEART: Unchanged. ABDOMEN: Unchanged. LABORATORY DATA: White count 12.2, hemoglobin 11.2, platelets 143. Electrolytes are unremarkable. BUN is 33. PH 7.48, CO2 of 36, PO2 of 57 on 40%. Chest radiographs are unchanged. IMPRESSION: COVID pneumonia, making slow progress. Fortunately, he is not declining at least at this point. We will continue supportive care. Critical care time 30 min. Job ID: [id number] MTDD
[2020-06-28] MEDS: Cholecalciferol 1,000 UNITS (25 MCG) TAB PER TUBE SCH (20:24)
[2020-06-28] MEDS: Atorvastatin Calcium 40 MG TAB PER TUBE SCH (20:24)
--- NOTE | 2020-06-29 00:07 | PDOC.BPN ---
- Brief Progress Note Called as pt ran fever (first in many days). No acute changes in status otherwise and has known cause of fever with COVID-19 PNA. Will repeat BCx. He is s/p 7 days of ABX. Will hold restarting for now. most recent CXR reviewed and no changes.
[2020-06-29] MEDS: Acetaminophen 325 MG TAB PO PRN (00:28)
[2020-06-29] MEDS: Propofol 1,000 MG/100 ML VIAL IV PRN ×5 (02:25→23:21)
[2020-06-29 04:32] LABS: ALT (SGPT) 100 U/L (8-55); AST (SGOT) 55 U/L (5-34); Albumin 2.7 g/dL (3.4-4.8); Alkaline Phosphatase 114 U/L (40-110); Anion Gap 15 mmol/L (10-20); BUN (Urea Nitrogen) 35 mg/dL (8.4-25.7); Bilirubin, Total 1.2 mg/dL (0.2-1.2); Calc. Creatinine Clearance 142 mL/min (70-130); Calcium 8.1 mg/dL (7.8-10.44); Carbon Dioxide 24 mmol/L (23-31); Chloride 103 mmol/L (98-107); Globulin 3.4 g/dL (2.4-3.5); Glucose 139 mg/dL (80-115); Potassium 4.4 mmol/L (3.5-5.1); Protein, Total 6.1 g/dL (5.8-8.1); Sodium 138 mmol/L (136-145)
[2020-06-29 05:08] LABS: Band 12 % (5-11); Hemoglobin 10.7 g/dL (14.0-18.0); Lymphocytes 2 % (21-51); MDiff Complete? YES; Mean Corpuscular HGB CONC 32.5 g/dL (32.0-36.0); Mean Corpuscular Hemoglobin 33.2 pg (27.0-31.0); Mean Platelet Volume 9.4 fL (7.4-10.4); Monocytes 11 % (0-10); Neutrophil 75 % (42-75); Platelet Count 137 thou/uL (130-400); RBC Distribution Width 14.5 % (11.5-14.5); Red Blood Cell (RBC) Count 3.23 mill/uL (4.70-6.10); White Blood Cell (WBC) Count 14.7 thou/uL (4.8-10.8)
--- NOTE | 2020-06-29 06:14 | PDOC.FM ---
- Subjective Subjective: Alert and denies pain. - Objective MAR Reviewed: Yes Vital Signs & Weight: Vital Signs (12 hours) Temp Pulse Resp Pulse Ox 06/29/20 06:00 20 06/29/20 04:00 99.8 F H 20 06/29/20 02:21 91 21 H 98 06/29/20 02:00 101.3 F H 20 06/29/20 00:28 101.7 F H 06/29/20 00:00 101.7 F H 20 06/28/20 23:45 94 L 06/28/20 22:00 22 H 06/28/20 21:41 95 21 H 100 06/28/20 20:00 98.8 F 20 06/28/20 19:30 98 06/28/20 19:06 81 20 91 L Weight Admit Weight 121.109 kg Weight 118.3 kg Most Recent Monitor Data Heart Rate from ECG 63 NIBP 109/60 NIBP BP-Mean 76 Respiration from ECG 20 SpO2 99 I&O: 06/27/20 06/28/20 06/29/20 06:59 06:59 06:59 Intake Total 1782 2089 1537.2 Output Total 1560 1650 1850 Balance 222 439 -312.8 Result Diagrams: 06/29/20 03:46 06/29/20 03:46 Radiology Reviewed by me: Yes Phys Exam - Physical Examination Constitutional: NAD HEENT: PERRLA, moist MMs Neck: no nodes Respiratory: no wheezing, no rales, no rhonchi Cardiovascular: RRR, no significant murmur Gastrointestinal: soft mildly distended. RN reports significant BMs. Musculoskeletal: no edema Neurological: non-focal Psychiatric: normal affect Skin: no rash Dx/Plan (1) Acute respiratory failure with hypoxia Code(s): J96.01 - ACUTE RESPIRATORY FAILURE WITH HYPOXIA Status: Acute (2) COVID-19 Code(s): U07.1 - COVID-19 Status: Acute (3) Pneumonia due to COVID-19 virus Code(s): U07.1 - COVID-19; J12.89 - OTHER VIRAL PNEUMONIA Status: Acute (4) CAD (coronary artery disease) Code(s): I25.10 - ATHSCL HEART DISEASE OF [place] CORONARY ARTERY W/O ANG PCTRS Status: Acute (5) HLD (hyperlipidemia) Code(s): E78.5 - HYPERLIPIDEMIA, UNSPECIFIED Status: Acute (6) HTN (hypertension) Code(s): I10 - ESSENTIAL (PRIMARY) HYPERTENSION Status: Acute (7) MALCOM (obstructive sleep apnea) Code(s): G47.33 - OBSTRUCTIVE SLEEP APNEA (ADULT) (PEDIATRIC) Status: Acute - Plan Plan: General: - NAD, well-sedated. Moves all 4 extremities, answers yes/no. Neuro: - On Propofol and Fentanyl for sedation and pain management. Respiratory: - Intubated 06/19/20. On AC rate of 20, peep of 12 and FiO2 of 40% - Symptom onset 06/15. Positive test on 06/17. - COVID 19 PNA: On Dexamethasone, Duonebs, and therapeutic lovenox. - CXR showed interval improvement. - Mediastinal lymphnode enlarged on CTA, sees Dr. Deluna outpatient and will need outpatient f/u. - Pulm consulted, appreciate recs. - Fevered overnight. Rechecking procalcitonin and will discuss restarting antibiotics with pulm. Cardiovascular: - Restarted amlodipine. Holding home hydralazine and coreg. Will monitor pressures today and consider restarting home Coreg if pressures remain elevated. - Elevated troponin - on therapeutic lovenox (100mg BID) - Consulted cardiology, appreciate recommendations. Gastrointestinal: - On Protonix for GI ppx. Nutrition: - Tube feeds initiated 06/20. - Rate of 40. Tolerating well. Genitourinary/Renal: - s/p 60mg IV lasix 06/24. Hematologic: - On lovenox. (100mg BID) Platelets stable. Infectious disease: - Urine and blood cx showed no growth @ 5 days. - Fevered 101.1 06/29, repeat blood cultures collected. - On azithromycin (06/20 - 06/26) - On rocephin (06/21 - 06/28) Lines/Tubes: - Endotracheal tube 06/19 - L femoral central line 06/19 - 20g LAC 06/19 - Brizuela catheter 06/19 Dispo: Stable, critically ill, in CCU. Code: Full Diet: Tube feeds PCP: Joe Addendum - Attending - Attending Attestation Date/Time: 06/29/20 1041 I personally evaluated the patient and discussed the management with Dr. Rowe. I agree with the History, Examination, Assessment and Plan documented above with any addition or exceptions noted below. Patient overall stable on ventilator. Pulm managing. He did have higher fever curve today, along with leukocytosis and neutrophilia, will discuss the need to expand abx coverage with Pulm. Otherwise, continue usual COVID care.
[2020-06-29] MEDS: Lorazepam 2 MG/ML VIAL SLOW IVP PRN (07:38)
--- NOTE | 2020-06-29 07:52 | RAD ---
Portable frontal chest radiograph: 06/29/2020 COMPARISON: 06/28/2020 HISTORY: Intubated Covid pneumonia patient FINDINGS: Stable endotracheal tube and nasogastric tube. Midline sternotomy wires are noted. No pneum othorax is evident. Stable interstitial and groundglass opacity in the perihilar regions and both lung bases. IMPRESSION: No significant interval change.
[2020-06-29] MEDS: Enoxaparin Sodium 120 MG/0.8 ML SYRINGE SC SCH (08:02)
[2020-06-29] MEDS: Aspirin 81 mg Enteric Coated Tablet PO SCH (08:03)
[2020-06-29] MEDS: Pantoprazole 40 MG VIAL IVP SCH (08:03)
[2020-06-29] MEDS: Zinc Sulfate 220 MG CAP PER TUBE SCH (08:03)
[2020-06-29] MEDS: Ascorbic Acid 500 mg Chewable Tablet PER TUBE SCH (08:03)
[2020-06-29] MEDS: Amlodipine 5 MG TAB PO SCH (08:04)
[2020-06-29] MEDS: Clopidogrel Bisulfate 75 MG TAB PO SCH (08:04)
[2020-06-29 08:30] LABS: Actual Bicarbonate (HCO3a) 26.1 mEq/L (22-28); Base Excess (BEa) 2.6 mEq/L (-2.0 to +3.0); CO2 Tension 35.8 mmHg (35.0-45.0); Calcium, Ionized (arterial) 1.11 mmol/L (1.12-1.30); Carboxyhemoglobin (COHb) 0.4 gm% (0.0-3.0); Hemoglobin (Hb) 9.8 g/dL (14.0-18.0); pH, Arterial 7.48 (7.35-7.45)
[2020-06-29 08:31] LABS: O2 Tension (PaO2), arterial 49.1 mmHg (> 80.0); Puncture Site RRA
[2020-06-29] MEDS: Dexamethasone Sod Phosphate 4 MG in Sodium Chloride 0.9% 50 ML IVPB SCH ×2 (09:18→21:35)
[2020-06-29] MEDS: fentaNYL Citrate/PF 2,000 MCG in Sodium Chloride 0.9% 60 ML IV SCH (11:39)
--- NOTE | 2020-06-29 18:53 | PRG ---
DATE OF SERVICE: 06/29/2020 SUBJECTIVE: Justen Ayala remains mechanically ventilated. He has had some endotracheal suctioning done today that reveals some bloody secretions, so we cut his Lovenox dose back. OBJECTIVE: LUNGS: Remarkable for rhonchi. HEART: Regular rhythm. ABDOMEN: Soft. LABORATORY DATA: White count 14.7, hemoglobin 10.7, platelets 137. Electrolytes are normal. BUN 35, creatinine 0.89. IMPRESSION: 1. COVID pneumonia. 2. Hemoptysis, likely aggravated by coughing, pneumonia, and full-dose Lovenox. Cut his Lovenox back to 60 q.12 for a while and then able to bump the dosing back up a little bit. We will continue current supportive care. Critical care time 30 min. Job ID: [id number] MTDD
[2020-06-29] MEDS: Atorvastatin Calcium 40 MG TAB PER TUBE SCH (21:34)
[2020-06-29] MEDS: Pantoprazole 40 MG GRANULES PACKET PER TUBE SCH (21:35)
[2020-06-29] MEDS: Cholecalciferol 1,000 UNITS (25 MCG) TAB PER TUBE SCH (21:35)
[2020-06-30] MEDS: fentaNYL Citrate/PF 2,000 MCG in Sodium Chloride 0.9% 60 ML IV SCH ×2 (02:08→16:07)
[2020-06-30] MEDS: Propofol 1,000 MG/100 ML VIAL IV PRN ×3 (04:30→19:52)
[2020-06-30 07:09] LABS: ALT (SGPT) 74 U/L (8-55); AST (SGOT) 53 U/L (5-34); Albumin 2.6 g/dL (3.4-4.8); Alkaline Phosphatase 123 U/L (40-110); Anion Gap 12 mmol/L (10-20); BUN (Urea Nitrogen) 30 mg/dL (8.4-25.7); Bilirubin, Total 1.1 mg/dL (0.2-1.2); Calc. Creatinine Clearance 0 mL/min (70-130); Calcium 8.1 mg/dL (7.8-10.44); Carbon Dioxide 27 mmol/L (23-31); Chloride 103 mmol/L (98-107); Globulin 3.8 g/dL (2.4-3.5); Glucose 132 mg/dL (80-115); Potassium 4.3 mmol/L (3.5-5.1); Protein, Total 6.4 g/dL (5.8-8.1); Sodium 138 mmol/L (136-145)
[2020-06-30 07:17] LABS: Band 5 % (5-11); Hemoglobin 10.6 g/dL (14.0-18.0); Lymphocytes 5 % (21-51); MDiff Complete? YES; Macrocytosis SLIGHT = 6-15 cells (100X) (0-5/hpf); Mean Corpuscular HGB CONC 33.2 g/dL (32.0-36.0); Mean Corpuscular Hemoglobin 33.5 pg (27.0-31.0); Mean Platelet Volume 9.6 fL (7.4-10.4); Monocytes 3 % (0-10); Neutrophil 87 % (42-75); Platelet Count 145 thou/uL (130-400); Platelet Morphology Comment Appears Adequate; RBC Distribution Width 14.4 % (11.5-14.5); Red Blood Cell (RBC) Count 3.17 mill/uL (4.70-6.10); White Blood Cell (WBC) Count 14.3 thou/uL (4.8-10.8)
[2020-06-30] MEDS ORDERED: Furosemide 40 MG/4 ML VIAL SLOW IVP SCH (07:30)
--- NOTE | 2020-06-30 07:46 | PDOC.FM ---
- Subjective Subjective: Overnight required increase in FiO2 in order to maintain O2 saturations. RN reports increased pink, frothy fluid being suctioned out of the ET tube. - Objective MAR Reviewed: Yes Vital Signs & Weight: Vital Signs (12 hours) Temp Pulse Resp Pulse Ox 06/30/20 07:38 71 22 H 90 L 06/30/20 07:32 20 06/30/20 06:00 20 06/30/20 04:00 99.8 F H 22 H 06/30/20 03:10 92 22 H 95 06/30/20 02:00 24 H 06/30/20 00:00 100.3 F H 21 H 94 L 06/29/20 22:16 97 21 H 06/29/20 22:00 20 06/29/20 20:00 98.4 F 20 91 L Weight Admit Weight 121.109 kg Weight 116.2 g Most Recent Monitor Data Heart Rate from ECG 71 NIBP 144/70 NIBP BP-Mean 94 Respiration from ECG 20 SpO2 92 I&O: 06/29/20 06/30/20 07/01/20 06:59 06:59 06:59 Intake Total 2490.2 2340 Output Total 1999 1830 Balance 490.2 510 Result Diagrams: 06/30/20 06:10 06/30/20 06:10 Radiology Reviewed by me: Yes Phys Exam - Physical Examination Constitutional: NAD HEENT: PERRLA, moist MMs Neck: no nodes Respiratory: no wheezing, no rhonchi Mild crackles bilterally Cardiovascular: RRR, no significant murmur Gastrointestinal: soft, non-tender Musculoskeletal: no edema Neurological: non-focal Psychiatric: normal affect Skin: no rash Dx/Plan (1) Acute respiratory failure with hypoxia Code(s): J96.01 - ACUTE RESPIRATORY FAILURE WITH HYPOXIA Status: Acute (2) COVID-19 Code(s): U07.1 - COVID-19 Status: Acute (3) Pneumonia due to COVID-19 virus Code(s): U07.1 - COVID-19; J12.89 - OTHER VIRAL PNEUMONIA Status: Acute (4) CAD (coronary artery disease) Code(s): I25.10 - ATHSCL HEART DISEASE OF [place] CORONARY ARTERY W/O ANG PCTRS Status: Acute (5) HLD (hyperlipidemia) Code(s): E78.5 - HYPERLIPIDEMIA, UNSPECIFIED Status: Acute (6) HTN (hypertension) Code(s): I10 - ESSENTIAL (PRIMARY) HYPERTENSION Status: Acute (7) MALCOM (obstructive sleep apnea) Code(s): G47.33 - OBSTRUCTIVE SLEEP APNEA (ADULT) (PEDIATRIC) Status: Acute - Plan Plan: General: - NAD, well-sedated. Moves all 4 extremities, answers yes/no. Neuro: - On Propofol and Fentanyl for sedation and pain management. Respiratory: - Intubated 06/19/20. On AC rate of 20, peep of 12 and FiO2 of 70% - Symptom onset 06/15. Positive test on 06/17. - COVID 19 PNA: On Dexamethasone, Duonebs, and therapeutic lovenox. - CXR stable. - Pulm consulted, appreciate recs. - Intermittent fevers, procal not elevated. Discussed needs for abx with pulm. Cardiovascular: - Restarted amlodipine. Holding home hydralazine and coreg. Will monitor pressures today and consider restarting home Coreg if pressures remain elevated. - Elevated troponin - on therapeutic lovenox (100mg BID) - Consulted cardiology, appreciate recommendations. Gastrointestinal: - On Protonix for GI ppx. Nutrition: - Tube feeds initiated 06/20. - Rate of 40. Tolerating well. Genitourinary/Renal: - Giving lasix again today for diuresis. Hematologic: - On lovenox. (100mg BID) Platelets stable. Infectious disease: - Urine and blood cx showed no growth @ 5 days. - Fevered 101.1 06/29, repeat blood cultures collected - NGTD. - [x] azithromycin (06/20 - 06/26) & rocephin (06/21 - 06/28) Lines/Tubes: - Endotracheal tube 06/19 - L femoral central line 06/19 - 20g LAC 06/19 - Brizuela catheter 06/19 Dispo: Stable, critically ill, in CCU. Code: Full Diet: Tube feeds PCP: Joe Addendum - Attending - Attending Attestation Date/Time: 06/30/20 1047 I personally evaluated the patient and discussed the management with Dr. Rowe. I agree with the History, Examination, Assessment and Plan documented above with any addition or exceptions noted below. Patient with some worsening of O2 status, vent settings increased. Pulm managing Vent, decreased Lovenox for his hemoptysis. Continue usual CCU COVID care, suspect prognosis worsening with his decline in status. Mild diurese today as CXR with some evidence of volume overload and I/O shows quite a bit positive over the last few days.
--- NOTE | 2020-06-30 07:46 | RAD ---
Chest AP view INDICATION: History of Covid pneumonia COMPARISON: Prior exam dated June 29, 2020 FINDINGS: Lungs: There is worsening bilateral airspace disease. Cardiac silhouette: There is worsening moderate to prominent cardiomegaly Pulmonary vasculature: There is worsening pulmonary vascular congestion Pleural spaces: There are enlarging bilateral pleural effusions. No pneumothorax is evident. Upper abdomen: No abnormality seen. Osseous structures: No acute osseous abnormality. Additional findings: Patient remains intubated with gastric catheter placement. Midline sternotomy c hanges are stable. IMPRESSION: Worsening cardiomegaly, pulmonary vascular congestion and bilateral airspace disease suspicious for w orsening CHF or volume overload. Some of the bilateral airspace disease is likely related to the patient's reported pneumonia. No pneumothorax. Tubes and lines are stable.
[2020-06-30 08:33] LABS: Actual Bicarbonate (HCO3a) 24.1 mEq/L (22-28); Base Excess (BEa) 0.3 mEq/L (-2.0 to +3.0); CO2 Tension 35.7 mmHg (35.0-45.0); Calcium, Ionized (arterial) 1.12 mmol/L (1.12-1.30); Carboxyhemoglobin (COHb) 0.8 gm% (0.0-3.0); Hemoglobin (Hb) 11.4 g/dL (14.0-18.0); Potassium - ABG Lab 4.13 mmol/L (3.70-5.30); pH, Arterial 7.45 (7.35-7.45)
[2020-06-30 08:35] LABS: Puncture Site RRA
[2020-06-30 08:36] LABS: ALV-art Gradient 404.475 mmHg (0-20)
[2020-06-30] MEDS: Enoxaparin Sodium 60 MG/0.6 ML SYRINGE SC SCH ×2 (09:05→21:13)
[2020-06-30] MEDS: Ascorbic Acid 500 mg Chewable Tablet PER TUBE SCH (09:06)
[2020-06-30] MEDS: Zinc Sulfate 220 MG CAP PER TUBE SCH (09:06)
[2020-06-30] MEDS: Amlodipine 5 MG TAB PO SCH (09:06)
[2020-06-30] MEDS: Clopidogrel Bisulfate 75 MG TAB PO SCH (09:06)
[2020-06-30] MEDS: Aspirin 81 mg Enteric Coated Tablet PO SCH (09:06)
[2020-06-30] MEDS: Dexamethasone Sod Phosphate 4 MG in Sodium Chloride 0.9% 50 ML IVPB SCH ×2 (09:15→21:11)
[2020-06-30] MEDS: Pantoprazole 40 MG GRANULES PACKET PER TUBE SCH ×2 (09:20→21:13)
[2020-06-30] MEDS ORDERED: Fentanyl BOLUS 250 ML IVPB PRN (09:37)
--- NOTE | 2020-06-30 10:06 | PDOC.PALCO ---
Palliative Care Consult - Consult Details Requesting Physician: Dr Rowe Reason for Consult: goals of care, assistance with communication prognosis/disease, complex decision-making - Pertinent HPI 64 year old male who presented to the emergency room with increasing shorthess of breath/respiratory distress. Conset of covid symptoms 06/15 with increase in severity, fever/congestion/cough. Tested positive for Covid 06/17/2020. The day of admission to emergency room patient was having continued decline, poor O2 saturation and 70% on room air, lied down and placed CPAP. Became less responsive with decreasing O2 saturation, EMS was called and patient transported to [facility], intubated prior to arrival to protect airway. Subsequent admission to CCU for higher level of care. Palliative care RN has been following along with supportive care to patient daughter Jerrica. He lived independently with Jerrica prior to admission. - Pertinent PMH CABG, HDL, HTN, - Social History Smoking Status: Former smoker Smoking: quit greater than 1 year Alcohol Use: none Drug Use History: none Living Situation: with family/parents (lives with his daughter) - Medications MAR Reviewed: Yes - Allergies Allergies/Adverse Reactions: Allergies Allergy/AdvReac Type Severity Reaction Status Date / Time lisinopril Allergy Intermediate Verified 06/20/20 00:31 morphine Allergy Intermediate Rash Verified 06/20/20 00:31 - Subjective Intubated, mechanical ventilation. Increase in Fio2 last night, bloody secretions via trach, Dr Deluna decreased lovenox. Sedated - ROS Non Response: due to endotracheal tube, due to mental status - Objective Vital Signs: Vital Signs - Most Recent Temp Pulse Resp BP Pulse Ox 99.7 F H 70 22 H 145/67 H 93 L 06/30/20 08:00 06/30/20 09:06 06/30/20 07:38 06/30/20 09:06 06/30/20 08:00 Palliative Performance Scale: 20 - Physical Exam Constitutional: ill appearing HEENT: EOMI, moist MMs Deviation from normal: Bilaterally adventicious, et tube with bloody secretions Cardiovascular: RRR Gastrointestinal: soft, non-tender Genitourinary: charles catheter Musculoskeletal: no cyanosis Neurology: no focal deficits Skin: cap refill <2 seconds, fragile - Problem List (1) Palliative care encounter Code(s): Z51.5 - ENCOUNTER FOR PALLIATIVE CARE Current Visit: Yes Status: Acute (2) Acute respiratory failure with hypoxia Code(s): J96.01 - ACUTE RESPIRATORY FAILURE WITH HYPOXIA Current Visit: Yes Status: Acute (3) COVID-19 Code(s): U07.1 - COVID-19 Current Visit: Yes Status: Acute (4) Pneumonia due to COVID-19 virus Code(s): U07.1 - COVID-19; J12.89 - OTHER VIRAL PNEUMONIA Current Visit: Yes Status: Acute (5) HTN (hypertension) Code(s): I10 - ESSENTIAL (PRIMARY) HYPERTENSION Current Visit: No Status: Acute - Plan/Recommendations Plan: Palliative Care has been providing support / assist with disease prognosis and trajectory to family. Jerrica, daughter, states that they desire to seek trach/peg if patient is not able to be weened from vent. Palliative care will continue to support family and readdress Goal of Care as needed parallel to disease trajectory Please refer to Palliative Care notes in note section. [35] minutes spent on this encounter with >50% of the time in counseling and coordination of care. Thank you for this very appropriate consult.
[2020-06-30] MEDS: Lorazepam 2 MG/ML VIAL SLOW IVP PRN ×2 (13:15→19:21)
--- NOTE | 2020-06-30 16:48 | PRG ---
DATE OF SERVICE: 06/30/2020 SUBJECTIVE: Mr. Ayala'angela FiO2 was increased last night. Respiratory rate is 20. His FiO2 has been turned back down to 60%. He was given a diuretic earlier. His intake and output were positive 510 this morning, but he had good diuresis with diuretics. OBJECTIVE: LUNGS: Still has coarse equal breath sounds. HEART: Regular rhythm. ABDOMEN: Soft. LABORATORY DATA: White count 14.3, hemoglobin 10.6, platelets 145. Electrolytes are normal. BUN 30, creatinine 0.84. Blood gas; pH 7.45, pCO2 of 35, pO2 of 50. IMPRESSION: 1. COVID pneumonia. 2. ? component of volume overload. 3. History of coronary artery bypass grafting. 4. Obesity and deconditioning. 5. PET negative pulmonary nodule in his right lower lobe. PLAN: Continue current supportive care. Try to minimize FiO2. Critical care time 30 min. Job ID: [id number] MTDD
[2020-06-30 19:54] LABS: Actual Bicarbonate (HCO3a) 19.1 mEq/L (22-28); Base Excess (BEa) -7.7 mEq/L (-2.0 to +3.0); CO2 Tension 43.9 mmHg (35.0-45.0); Calcium, Ionized (arterial) 1.15 mmol/L (1.12-1.30); Carboxyhemoglobin (COHb) 0.6 gm% (0.0-3.0); Potassium - ABG Lab 4.71 mmol/L (3.70-5.30); pH, Arterial 7.26 (7.35-7.45)
[2020-06-30 19:59] LABS: O2 Tension (PaO2), arterial 39.1 mmHg (> 80.0)
[2020-06-30 20:00] LABS: ALV-art Gradient 619.025 mmHg (0-20); Puncture Site RRA
--- NOTE | 2020-06-30 20:47 | RAD ---
CHEST ONE VIEW: 06/30/20 HISTORY: Respiratory distress. History of COVID pneumonia. COMPARISON: 06/30/20 study. Heart size is enlarged. Endotracheal and NG tube are in satisfactory position. Parenchymal lung patel es are stable. IMPRESSION: Stable chest. POS: ZURI
[2020-06-30] MEDS: Cholecalciferol 1,000 UNITS (25 MCG) TAB PER TUBE SCH (21:12)
[2020-06-30] MEDS: Atorvastatin Calcium 40 MG TAB PER TUBE SCH (21:13)
[2020-06-30] MEDS ORDERED: Sterile Water 10 ML ONE (21:47)
[2020-06-30] MEDS: Acetaminophen 325 MG TAB PO PRN (21:49)
[2020-06-30] MEDS: Vecuronium 10 MG VIAL IVP PRN (21:49)
[2020-07-01] MEDS: Propofol 1,000 MG/100 ML VIAL IV PRN ×4 (01:00→22:16)
[2020-07-01] MEDS: Acetaminophen 325 MG TAB PO PRN (01:45)
[2020-07-01] MEDS ORDERED: Norepinephrine 8 MG in Dextrose 5% in Water 242 ML IVPB PRN (02:15)
[2020-07-01 05:34] LABS: Band 23 % (5-11); Hemoglobin 11.4 g/dL (14.0-18.0); Lymphocytes 5 % (21-51); MDiff Complete? YES; Mean Corpuscular HGB CONC 31.6 g/dL (32.0-36.0); Mean Platelet Volume 9.7 fL (7.4-10.4); Monocytes 2 % (0-10); Neutrophil 70 % (42-75); Platelet Count 191 thou/uL (130-400); Platelet Morphology Comment Appears Adequate; RBC Distribution Width 14.6 % (11.5-14.5); Red Blood Cell (RBC) Count 3.56 mill/uL (4.70-6.10); White Blood Cell (WBC) Count 31.8 thou/uL (4.8-10.8)
[2020-07-01] MEDS: fentaNYL Citrate/PF 2,000 MCG in Sodium Chloride 0.9% 60 ML IV SCH ×2 (05:35→19:41)
[2020-07-01 05:51] LABS: ALT (SGPT) 83 U/L (8-55); AST (SGOT) 160 U/L (5-34); Albumin 2.7 g/dL (3.4-4.8); Alkaline Phosphatase 187 U/L (40-110); Anion Gap 19 mmol/L (10-20); BUN (Urea Nitrogen) 53 mg/dL (8.4-25.7); Bilirubin, Total 1.6 mg/dL (0.2-1.2); CRP (Inflammatory) 23.77 mg/dL (= or < 0.5); Calc. Creatinine Clearance 95 mL/min (70-130); Calcium 8.3 mg/dL (7.8-10.44); Carbon Dioxide 24 mmol/L (23-31); Chloride 100 mmol/L (98-107); Glucose 137 mg/dL (80-115); Potassium 4.5 mmol/L (3.5-5.1); Protein, Total 6.7 g/dL (5.8-8.1); Sodium 138 mmol/L (136-145)
--- NOTE | 2020-07-01 06:50 | PDOC.FM ---
- Subjective Subjective: Had a very eventful evening. See nursing notes. O2 sats dropped to 50-60s, changed ET tubing, turned to 100% and proned. ABG on settings this morning pending. - Objective MAR Reviewed: Yes Vital Signs & Weight: Vital Signs (12 hours) Temp Pulse Resp Pulse Ox 07/01/20 06:00 27 H 07/01/20 04:00 29 H 07/01/20 02:55 93 25 H 91 L 07/01/20 02:53 91 07/01/20 02:15 99.6 F 07/01/20 02:00 99.6 F 29 H 07/01/20 00:00 31 H 06/30/20 23:12 120 H 25 H 71 L 06/30/20 23:08 120 H 06/30/20 23:00 101.0 F H 06/30/20 22:19 101.0 F H 06/30/20 22:00 29 H 06/30/20 21:49 100.7 F H 06/30/20 21:00 100.7 F H 06/30/20 20:36 38 H 06/30/20 20:00 88 L Weight Admit Weight 121.109 kg Weight 119.8 kg Most Recent Monitor Data Heart Rate from ECG 96 NIBP 129/81 NIBP BP-Mean 97 Respiration from ECG 29 SpO2 94 I&O: 06/29/20 06/30/20 07/01/20 06:59 06:59 06:59 Intake Total 2490.2 2340 1642.9 Output Total 1999 1830 3220 Balance 490.2 510 -1577.1 Result Diagrams: 07/01/20 04:30 07/01/20 04:30 Radiology Reviewed by me: Yes (Worsening CXR ) Phys Exam - Physical Examination Constitutional: NAD Proned Proned Respiratory: no wheezing, no rhonchi Crackles bilaterally. Cardiovascular: RRR, no significant murmur Proned Musculoskeletal: no edema, pulses present Neurological: non-focal Deviation from normal: Proned Skin: no rash, normal turgor Dx/Plan (1) Acute respiratory failure with hypoxia Code(s): J96.01 - ACUTE RESPIRATORY FAILURE WITH HYPOXIA Status: Acute (2) COVID-19 Code(s): U07.1 - COVID-19 Status: Acute (3) Pneumonia due to COVID-19 virus Code(s): U07.1 - COVID-19; J12.89 - OTHER VIRAL PNEUMONIA Status: Acute (4) CAD (coronary artery disease) Code(s): I25.10 - ATHSCL HEART DISEASE OF [place] CORONARY ARTERY W/O ANG PCTRS Status: Acute (5) HLD (hyperlipidemia) Code(s): E78.5 - HYPERLIPIDEMIA, UNSPECIFIED Status: Acute (6) HTN (hypertension) Code(s): I10 - ESSENTIAL (PRIMARY) HYPERTENSION Status: Acute (7) MALCOM (obstructive sleep apnea) Code(s): G47.33 - OBSTRUCTIVE SLEEP APNEA (ADULT) (PEDIATRIC) Status: Acute - Plan Plan: General: - NAD, well-sedated. Moves all 4 extremities, answers yes/no. Neuro: - On Propofol and Fentanyl for sedation and pain management. Respiratory: - Intubated 06/19/20. On AC rate of 20, peep of 12 and FiO2 of 90% - Symptom onset 06/15. Positive test on 06/17. Day ~17 of symptoms. - COVID 19 PNA: On Dexamethasone, Duonebs, and therapeutic lovenox. - CXR stable. - Pulm consulted, appreciate recs. - Significantly worsened last night. Will discuss recs with Deluna and call family. May arrange family medicine for tomorrow. Cardiovascular: - Restarted amlodipine. Holding home hydralazine and coreg. Will monitor pressures today and consider restarting home Coreg if pressures remain elevated. - Elevated troponin - on lovenox 60mg BID, down from therapeutic. - Consulted cardiology, appreciate recommendations. Gastrointestinal: - On Protonix for GI ppx. Nutrition: - Tube feeds initiated 06/20. - Rate of 40. Tolerating well. Genitourinary/Renal: - Giving lasix again today for diuresis. Hematologic: - On lovenox. (100mg BID) Platelets stable. Infectious disease: - Urine and blood cx showed no growth @ 5 days. - Fevered 101.1 06/29, repeat blood cultures collected - NGTD. - [x] azithromycin (06/20 - 06/26) & rocephin (06/21 - 06/28) Lines/Tubes: - Endotracheal tube 06/19 - L femoral central line 06/19 - 20g LAC 06/19 - Brizuela catheter 06/19 Dispo: Stable, critically ill, in CCU. Code: Full Diet: Tube feeds PCP: Joe Addendum - Attending - Attending Attestation Date/Time: 07/01/20 1041 I personally evaluated the patient and discussed the management with Dr. Rowe. I agree with the History, Examination, Assessment and Plan documented above with any addition or exceptions noted below. Patient worsening. Had episodes of hypoxia despite FiO2 100% overnight and episode of hypotension. Evidence of ischemic liver and renal injury this morning on labs. Continue vent per Pulm. Now proned and on increased vent settings. Severely worsened leukocytosis. Poor prognosis anticipated. Family update today.
[2020-07-01 07:54] LABS: Actual Bicarbonate (HCO3a) 24.6 mEq/L (22-28); Base Excess (BEa) 0.5 mEq/L (-2.0 to +3.0); CO2 Tension 37.8 mmHg (35.0-45.0); Calcium, Ionized (arterial) 1.11 mmol/L (1.12-1.30); Carboxyhemoglobin (COHb) 0.8 gm% (0.0-3.0); Hemoglobin (Hb) 11.9 g/dL (14.0-18.0); O2 Tension (PaO2), arterial 80.9 mmHg (> 80.0); Potassium - ABG Lab 4.29 mmol/L (3.70-5.30); pH, Arterial 7.43 (7.35-7.45)
[2020-07-01 07:55] LABS: Puncture Site LRA
[2020-07-01] MEDS: Ascorbic Acid 500 mg Chewable Tablet PER TUBE SCH (08:28)
[2020-07-01] MEDS: Pantoprazole 40 MG GRANULES PACKET PER TUBE SCH ×2 (08:28→19:45)
[2020-07-01] MEDS: Aspirin Chewable 81 MG TAB PER TUBE SCH (08:28)
[2020-07-01] MEDS: Zinc Sulfate 220 MG CAP PER TUBE SCH (08:28)
[2020-07-01] MEDS: Clopidogrel Bisulfate 75 MG TAB PO SCH (08:28)
[2020-07-01] MEDS: Amlodipine 5 MG TAB PO SCH (08:29)
[2020-07-01] MEDS ORDERED: Meropenem 2 GM, Admixture Fee 1 EACH in Sodium Chloride 0.9% 100 ML IVPB SCH (08:30)
[2020-07-01] MEDS: Enoxaparin Sodium 60 MG/0.6 ML SYRINGE SC SCH ×3 (08:32→19:43)
[2020-07-01] MEDS: Dexamethasone Sod Phosphate 4 MG in Sodium Chloride 0.9% 50 ML IVPB SCH ×2 (08:32→21:36)
--- NOTE | 2020-07-01 08:34 | RAD ---
CHEST 1 VIEW: Date: 07/01/2020 HISTORY: COVID pneumonia, on ventilator. COMPARISON: 06/30/2020. FINDINGS/IMPRESSION: Life support tubes appear to be stable. Nodular fullness of both right and left suprahilar regions. E xtensive bilateral interstitial, alveolar, and ground-glass opacity changes with somewhat more conflu ence in the upper mid lung zones. Overall appearance is showing worsening consolidation and increased density within the lungs from prior studies. POS: RRE
--- NOTE | 2020-07-01 09:10 | PRG ---
DATE OF SERVICE: 07/01/2020 SUBJECTIVE: Mr. Ayala decompensated last night and was placed in the prone position. he is intermittently having coronary ischemic pulmonary edema. Intake and output are negative 1577. OBJECTIVE: LUNGS: Remarkable for coarse equal breath sounds. HEART: Regular rhythm. ABDOMEN: Soft. He is proned. LABORATORY DATA: White count 31, hemoglobin 11.4. He has 23% bands on his peripheral smear. Aborted blood cultures. I have started meropenem in an event this is a ventilator associated process. Creatinine has gone from 0.84 to 1.35 with diuresis yesterday. So, he probably does not need to be diuresed today. He had alveolar hemorrhage in part of this with his Lovenox and significant amounts of suctioned blood, so we cut his Lovenox back to 60 mg q.12. He remains on Decadron. We will continue supportive care. Critical care time was 30 min. Job ID: [id number] [facility]
[2020-07-01 09:48] LABS: Troponin I 41.081 ng/mL (< 0.028)
--- NOTE | 2020-07-01 13:00 | PDOC.BPN ---
- Brief Progress Note Encounter Date: 07/01/20 Called and spoke with daughter about overnight events. Answered questions. Discussed that this was a turn for the worse in regards to his pulmonary function. She would like to arrange a family meeting tomorrow. We will discuss with charge nurse in the morning, but I anticipate that there is availability to do a family meeting in the morning with three of the patient's children and allow them to see him through the window/facetime talk to him. Isac WRAY PGY2
[2020-07-01] MEDS: Meropenem 2 GM, Admixture Fee 1 EACH in Sodium Chloride 0.9% 100 ML IVPB SCH ×2 (13:27→22:16)
[2020-07-01] MEDS ORDERED: Meropenem 2 GM in Admixture Fee 1 EACH IVPB SCH (14:00)
[2020-07-01] MEDS: Cholecalciferol 1,000 UNITS (25 MCG) TAB PER TUBE SCH (19:42)
[2020-07-01] MEDS: Atorvastatin Calcium 40 MG TAB PER TUBE SCH (19:43)
[2020-07-01] MEDS ORDERED: Sterile Water 10 ML ONE (22:14)
[2020-07-01] MEDS: Vecuronium 10 MG VIAL IVP PRN (23:22)
[2020-07-02 04:07] LABS: Band 10 % (5-11); Hemoglobin 10.8 g/dL (14.0-18.0); Hypochromia SLIGHT = 6-15 cells (100X) (0-5/hpf); Lymphocytes 3 % (21-51); MDiff Complete? YES; Mean Corpuscular HGB CONC 32.2 g/dL (32.0-36.0); Mean Corpuscular Hemoglobin 32.4 pg (27.0-31.0); Mean Platelet Volume 9.3 fL (7.4-10.4); Monocytes 5 % (0-10); Neutrophil 82 % (42-75); Platelet Count 177 thou/uL (130-400); Platelet Morphology Comment Appears Adequate; RBC Distribution Width 14.4 % (11.5-14.5); Red Blood Cell (RBC) Count 3.32 mill/uL (4.70-6.10)
[2020-07-02 04:13] LABS: ALT (SGPT) 72 U/L (8-55); AST (SGOT) 136 U/L (5-34); Albumin 2.5 g/dL (3.4-4.8); Alkaline Phosphatase 225 U/L (40-110); Anion Gap 13 mmol/L (10-20); BUN (Urea Nitrogen) 41 mg/dL (8.4-25.7); Bilirubin, Total 1.4 mg/dL (0.2-1.2); Calc. Creatinine Clearance 144 mL/min (70-130); Calcium 8.2 mg/dL (7.8-10.44); Carbon Dioxide 27 mmol/L (23-31); Chloride 103 mmol/L (98-107); Globulin 3.8 g/dL (2.4-3.5); Glucose 127 mg/dL (80-115); Potassium 4.6 mmol/L (3.5-5.1); Protein, Total 6.3 g/dL (5.8-8.1); Sodium 138 mmol/L (136-145)
[2020-07-02] MEDS: Propofol 1,000 MG/100 ML VIAL IV PRN ×4 (04:47→20:41)
[2020-07-02] MEDS: Meropenem 2 GM, Admixture Fee 1 EACH in Sodium Chloride 0.9% 100 ML IVPB SCH ×3 (06:12→22:09)
--- NOTE | 2020-07-02 06:18 | PDOC.FM ---
- Subjective Subjective: pt prone on ventilator, sedated and non responsive to verbal stimuli. - Objective Vital Signs & Weight: Vital Signs (12 hours) Temp Pulse Resp Pulse Ox 07/02/20 04:00 20 07/02/20 02:27 74 22 H 96 07/02/20 02:00 98.0 F 20 07/02/20 00:00 29 H 07/01/20 22:00 23 H 07/01/20 21:58 72 22 H 93 L 07/01/20 20:00 98.3 F 24 H 95 07/01/20 18:24 79 24 H 93 L Weight Admit Weight 121.109 kg Weight 119.8 kg Most Recent Monitor Data Heart Rate from ECG 81 NIBP 124/73 NIBP BP-Mean 90 Respiration from ECG 20 SpO2 97 I&O: 06/30/20 07/01/20 07/02/20 06:59 06:59 06:59 Intake Total 2340 1642.9 709.2 Output Total 1830 3220 1550 Balance 510 -1577.1 -840.8 Result Diagrams: 07/02/20 03:15 07/02/20 03:15 Phys Exam - Physical Examination Constitutional: NAD Neck: supple diffuse crackles and reduced breath sounds Cardiovascular: RRR, no significant murmur Gastrointestinal: soft Musculoskeletal: pulses present, edema present heavy sedation Skin: no rash, normal turgor Dx/Plan (1) Acute respiratory failure with hypoxia Code(s): J96.01 - ACUTE RESPIRATORY FAILURE WITH HYPOXIA Status: Acute (2) COVID-19 Code(s): U07.1 - COVID-19 Status: Acute (3) Pneumonia due to COVID-19 virus Code(s): U07.1 - COVID-19; J12.89 - OTHER VIRAL PNEUMONIA Status: Acute (4) CAD (coronary artery disease) Code(s): I25.10 - ATHSCL HEART DISEASE OF [place] CORONARY ARTERY W/O ANG PCTRS Status: Acute (5) HLD (hyperlipidemia) Code(s): E78.5 - HYPERLIPIDEMIA, UNSPECIFIED Status: Acute (6) HTN (hypertension) Code(s): I10 - ESSENTIAL (PRIMARY) HYPERTENSION Status: Acute (7) Sepsis Code(s): A41.9 - SEPSIS, UNSPECIFIED ORGANISM Status: Acute - Plan Plan: Neuro: - On Propofol and Fentanyl for sedation and pain management. Respiratory: - Intubated 06/19/20. - Symptom onset 06/15. Positive test on 06/17 - COVID 19 PNA: On Dexamethasone, Duonebs, and therapeutic lovenox. - Pulm consulted, appreciate recs. - worsening overall, merem added for possible VAP Cardiovascular: - Restarted amlodipine. Holding home hydralazine and coreg. Will monitor pressures - Elevated troponin - on lovenox 60mg BID, down from therapeutic. - Consulted cardiology, appreciate recommendations. - negative fluid balance Gastrointestinal: - On Protonix for GI ppx. Nutrition: - Tube feeds initiated 06/20. - Rate of 40. Tolerating well. Genitourinary/Renal: - Cr improved. Hematologic: - intermediate lovenox Platelets stable. Infectious disease: - Urine and blood cx showed no growth @ 5 days. - blood cultures collected - NGTD. - sig wbc elevation, worsening cxr, increased vent requirements- possible VAP - [facility] 07/01 Lines/Tubes: - Endotracheal tube 06/19 - L femoral central line 06/19 - 20g LAC 06/19 - Brizuela catheter 06/19 Dispo: possible that worsening related to VAP vs severe alveolar hemorrhage, family meeting today to discuss prognosis. Code: Full Diet: Tube feeds PCP: Joe Addendum - Attending - Attending Attestation Date/Time: 07/02/20 9008 I personally evaluated the patient and discussed the management with Dr. Abbasi. I agree with the History, Examination, Assessment and Plan documented above with any addition or exceptions noted below. Patient overall stable overnight as long as he is in prone position. Continue vent mgmt for COVID pneumonia with hypoxemia. Continue supportive care. Possible family meeting today. Guarded to poor prognosis given his worsening status over the last few days.
[2020-07-02 07:57] LABS: Actual Bicarbonate (HCO3a) 27.2 mEq/L (22-28); Base Excess (BEa) 3.2 mEq/L (-2.0 to +3.0); CO2 Tension 39.2 mmHg (35.0-45.0); Calcium, Ionized (arterial) 1.12 mmol/L (1.12-1.30); Hemoglobin (Hb) 11.1 g/dL (14.0-18.0); O2 Tension (PaO2), arterial 65.3 mmHg (> 80.0); Potassium - ABG Lab 4.63 mmol/L (3.70-5.30); pH, Arterial 7.46 (7.35-7.45)
[2020-07-02 07:58] LABS: Puncture Site RRA
[2020-07-02] MEDS: Dexamethasone Sod Phosphate 4 MG in Sodium Chloride 0.9% 50 ML IVPB SCH ×2 (08:30→20:40)
[2020-07-02] MEDS: fentaNYL Citrate/PF 2,000 MCG in Sodium Chloride 0.9% 60 ML IV SCH ×2 (08:30→22:09)
[2020-07-02] MEDS: Enoxaparin Sodium 60 MG/0.6 ML SYRINGE SC SCH ×2 (08:30→20:41)
[2020-07-02] MEDS: Pantoprazole 40 MG GRANULES PACKET PER TUBE SCH ×2 (08:30→20:41)
[2020-07-02] MEDS: Aspirin Chewable 81 MG TAB PER TUBE SCH (08:30)
[2020-07-02] MEDS: Ascorbic Acid 500 mg Chewable Tablet PER TUBE SCH (08:30)
[2020-07-02] MEDS: Clopidogrel Bisulfate 75 MG TAB PO SCH (08:31)
[2020-07-02] MEDS: Zinc Sulfate 220 MG CAP PER TUBE SCH (08:31)
[2020-07-02] MEDS: Amlodipine 5 MG TAB PO SCH (08:33)
--- NOTE | 2020-07-02 08:48 | RAD ---
PORTABLE CHEST 1 VIEW: Date: 07/02/2020 Time: 0540 hours HISTORY: COVID pneumonia. Respiratory failure. FINDINGS/IMPRESSION: Changes of median sternotomy are again seen. Tube placements remain in place. The lungs are well expa nded with extensive bilateral interstitial alveolar and ground-glass opacities again seen. POS: OFF
[2020-07-02] MEDS: Vecuronium 10 MG VIAL IVP PRN (10:01)
[2020-07-02] MEDS: Lorazepam 2 MG/ML VIAL SLOW IVP PRN (10:01)
--- NOTE | 2020-07-02 14:33 | PRG ---
DATE OF SERVICE: 07/02/2020 SUBJECTIVE: Mr. Ayala unfortunately has not had any improvement and in fact during the night returned to prone positioning. Today, he is on 80% FiO2 with marginal saturations. His x-ray to me is worsened. I have met with the patient's children along with his primary physician. We have tried to lay out for them his global condition. Unfortunately, many of the questions they were asking revolve around COVID related prognosis, both short term, neither of which we have a very good ability to answer. They have asked about any additional experimental therapies, which may be available. I do not know of any at this point. They have asked about why his condition is worsening and similarly, we do not have any good answers except to explain that this is often seen in the COVID patients in the later phase than we would see in other diagnosis. At this point, they still wish him to recover if possible. We are not yet at the point, where we need to discuss tracheostomy versus withdrawal of care. We have talked to them about CPR should the need arise and they will try to get an answer for us. OBJECTIVE: VITAL SIGNS: Blood pressure 96/65, heart rate is 71, saturation 95%, and respiratory rate is 20. Current ventilator includes prone positioning at 80% FiO2. GENERAL: Sedated. HEENT: Shows no JVD. LUNGS: He has posterior rhonchi. There is no wheezing. HEART: Regular rate and rhythm. ABDOMEN: Soft. EXTREMITIES: Showed trace to 1+ edema. NEUROLOGIC: He is sedated. LABORATORY DATA: White count 18,000 down from 31,000 yesterday, hemoglobin is 10.8 with hematocrit 33.4, and platelet count 177,000. He does have 10% bands. Chemistry includes sodium 138, potassium 4.6, chloride 103, CO2 is 27, BUN 41, and creatinine 0.9. Liver tests are mildly elevated, although stable to slightly improved in the past 24 hours. Current blood gas includes pH of 7.46, CO2 of 39, pO2 of 65, and bicarbonate of 27. This was obtained with pressure controlled bilevel . Chest x-ray today as interpreted by me demonstrates extensive bilateral panlobular consolidations, which appear to be worsened over the past 48 hours. Lines and tubes are appropriately placed and there is evidence of remote sternotomy. IMPRESSION: COVID pneumonia with hypoxemic respiratory failure, now worsening despite ventilatory support and prone positioning. PLAN: We will continue current therapies including prone positioning, empiric antibiotics, and other supportive measures. Unfortunately, the trend we are seeing for him is currently in a worsening pattern. Family has been made aware and we have attempted to answer their questions. They will continue to be in contact with us regarding any change in their expectations. Critical care, 35 minutes. Job ID: [id number]
[2020-07-02] MEDS: Cholecalciferol 1,000 UNITS (25 MCG) TAB PER TUBE SCH (20:40)
[2020-07-02] MEDS: Atorvastatin Calcium 40 MG TAB PER TUBE SCH (20:40)
[2020-07-03] MEDS: Lorazepam 2 MG/ML VIAL SLOW IVP PRN ×2 (00:01→03:19)
[2020-07-03] MEDS: Propofol 1,000 MG/100 ML VIAL IV PRN ×6 (00:31→22:44)
[2020-07-03] MEDS ORDERED: Sterile Water 0 ML ONE (02:09)
[2020-07-03] MEDS ORDERED: Sterile Water 10 ML ONE (02:12)
[2020-07-03] MEDS: Vecuronium 10 MG VIAL IVP PRN ×2 (02:23→19:55)
[2020-07-03] MEDS: Acetaminophen 325 MG TAB PO PRN ×2 (03:30→20:22)
[2020-07-03 04:32] LABS: Band 15 % (5-11); Hemoglobin 11.4 g/dL (14.0-18.0); Lymphocytes 3 % (21-51); MDiff Complete? YES; Mean Corpuscular HGB CONC 32.9 g/dL (32.0-36.0); Mean Corpuscular Hemoglobin 32.8 pg (27.0-31.0); Mean Corpuscular Volume 99.8 fL (78.0-98.0); Mean Platelet Volume 9.4 fL (7.4-10.4); Monocytes 3 % (0-10); Neutrophil 79 % (42-75); Platelet Count 216 thou/uL (130-400); Platelet Morphology Comment Appears Adequate; RBC Distribution Width 14.7 % (11.5-14.5); Red Blood Cell (RBC) Count 3.48 mill/uL (4.70-6.10); White Blood Cell (WBC) Count 24.9 thou/uL (4.8-10.8)
[2020-07-03 04:38] LABS: ALT (SGPT) 86 U/L (8-55); AST (SGOT) 133 U/L (5-34); Albumin 2.7 g/dL (3.4-4.8); Alkaline Phosphatase 342 U/L (40-110); Anion Gap 16 mmol/L (10-20); BUN (Urea Nitrogen) 44 mg/dL (8.4-25.7); Bilirubin, Total 1.9 mg/dL (0.2-1.2); Calc. Creatinine Clearance 118 mL/min (70-130); Calcium 8.3 mg/dL (7.8-10.44); Carbon Dioxide 26 mmol/L (23-31); Chloride 103 mmol/L (98-107); Globulin 4.5 g/dL (2.4-3.5); Glucose 130 mg/dL (80-115); Potassium 5.2 mmol/L (3.5-5.1); Protein, Total 7.2 g/dL (5.8-8.1); Sodium 140 mmol/L (136-145)
[2020-07-03] MEDS: Meropenem 2 GM, Admixture Fee 1 EACH in Sodium Chloride 0.9% 100 ML IVPB SCH ×3 (05:01→22:44)
--- NOTE | 2020-07-03 06:23 | PDOC.FM ---
- Subjective Subjective: pt prone and sedated in bed, reported desat last night, with recovery after placing on 100%fio2 - Objective Vital Signs & Weight: Vital Signs (12 hours) Temp Pulse Resp Pulse Ox 07/03/20 06:00 21 H 07/03/20 05:00 99.6 F 07/03/20 04:00 101.1 F H 25 H 07/03/20 03:30 101.2 F H 07/03/20 02:08 85 30 H 92 L 07/03/20 02:00 25 H 07/03/20 00:38 98.2 F 07/03/20 00:00 28 H 07/02/20 22:00 23 H 07/02/20 21:57 70 22 H 91 L 07/02/20 20:00 98.8 F 22 H 07/02/20 19:44 92 L Weight Admit Weight 121.109 kg Weight 117.9 kg Most Recent Monitor Data Heart Rate from ECG 85 NIBP 103/59 NIBP BP-Mean 73 Respiration from ECG 22 SpO2 95 I&O: 07/01/20 07/02/20 07/03/20 06:59 06:59 06:59 Intake Total 1642.9 1292.7 1328.9 Output Total 3220 1752 1653 Balance -1577.1 -459.3 -324.1 Result Diagrams: 07/03/20 03:45 07/03/20 03:45 Phys Exam - Physical Examination Constitutional: NAD ncat Neck: supple diffuse crackles and ronchi Cardiovascular: no significant murmur Gastrointestinal: soft Musculoskeletal: pulses present Skin: no rash Dx/Plan (1) Acute respiratory failure with hypoxia Code(s): J96.01 - ACUTE RESPIRATORY FAILURE WITH HYPOXIA Status: Acute (2) COVID-19 Code(s): U07.1 - COVID-19 Status: Acute (3) Pneumonia due to COVID-19 virus Code(s): U07.1 - COVID-19; J12.89 - OTHER VIRAL PNEUMONIA Status: Acute (4) CAD (coronary artery disease) Code(s): I25.10 - ATHSCL HEART DISEASE OF [place] CORONARY ARTERY W/O ANG PCTRS Status: Acute (5) HLD (hyperlipidemia) Code(s): E78.5 - HYPERLIPIDEMIA, UNSPECIFIED Status: Acute (6) HTN (hypertension) Code(s): I10 - ESSENTIAL (PRIMARY) HYPERTENSION Status: Acute (7) Sepsis Code(s): A41.9 - SEPSIS, UNSPECIFIED ORGANISM Status: Acute - Plan Plan: Neuro: - On Propofol and Fentanyl for sedation and pain management. Respiratory: - Intubated 06/19/20. - Symptom onset 06/15. Positive test on 06/17 - COVID 19 PNA: On Dexamethasone, Duonebs, and intermediate dose lovenox. - Pulm consulted, appreciate recs, merem for possible VAP - overall increased respiratory support required, pt freq desats, and requires prolonged 100%fio2 Cardiovascular: - amlodipine. Holding home hydralazine and coreg. Will monitor pressures - Elevated troponin - on lovenox 60mg BID, down from therapeutic. - Consulted cardiology, appreciate recommendations. - negative fluid balance Gastrointestinal: - On Protonix for GI ppx. Nutrition: - Tube feeds initiated 06/20. - Rate of 40. Tolerating well. Genitourinary/Renal: - Cr improved. Hematologic: - intermediate lovenox Platelets stable. Infectious disease: - Urine and blood cx showed no growth @ 5 days. - blood cultures collected - NGTD. - sig wbc elevation, worsening cxr, increased vent requirements- possible VAP - Merem 07/01, repeat procal as excepted Lines/Tubes: - Endotracheal tube 06/19 - L femoral central line 06/19 - 20g LAC 06/19 - Brizuela catheter 06/19 Dispo: overall poor prognosis, family meeting to discuss yesterday, they do not desire to change course at this time. Code: Full Diet: Tube feeds PCP: Joe Addendum - Attending - Attending Attestation Date/Time: 07/03/20 [id number] I personally evaluated the patient and discussed the management with Dr. Abbasi. I agree with the History, Examination, Assessment and Plan documented above with any addition or exceptions noted below. Patient overall stable but overall status has worsened over the last few days. He is not able to receive adequate oxygenation in the supine position, and any position changes or movement from the prone position causes severe desaturations. Continue current care, Pulm on board. Family meeting yesterday, will continue to discuss with them that the patient's current status does not even support the notion of moving to trach status as he is difficult to oxygena te even with max ventilator settings. Continue IV abx for coverage of possible ventilator associated process.
[2020-07-03 08:05] LABS: Actual Bicarbonate (HCO3a) 24.2 mEq/L (22-28); Base Excess (BEa) -0.3 mEq/L (-2.0 to +3.0); CO2 Tension 39.1 mmHg (35.0-45.0); Calcium, Ionized (arterial) 1.12 mmol/L (1.12-1.30); Carboxyhemoglobin (COHb) 0.4 gm% (0.0-3.0); Hemoglobin (Hb) 10.3 g/dL (14.0-18.0); O2 Tension (PaO2), arterial 72.1 mmHg (> 80.0); Potassium - ABG Lab 4.76 mmol/L (3.70-5.30); pH, Arterial 7.41 (7.35-7.45)
[2020-07-03] MEDS: Amlodipine 5 MG TAB PO SCH (08:12)
[2020-07-03] MEDS: Enoxaparin Sodium 60 MG/0.6 ML SYRINGE SC SCH ×2 (08:12→20:18)
[2020-07-03] MEDS: Ascorbic Acid 500 mg Chewable Tablet PER TUBE SCH (08:12)
[2020-07-03] MEDS: Dexamethasone Sod Phosphate 4 MG in Sodium Chloride 0.9% 50 ML IVPB SCH ×2 (08:12→20:14)
[2020-07-03] MEDS: Aspirin Chewable 81 MG TAB PER TUBE SCH (08:13)
[2020-07-03] MEDS: Pantoprazole 40 MG GRANULES PACKET PER TUBE SCH ×2 (08:13→19:55)
[2020-07-03] MEDS: Zinc Sulfate 220 MG CAP PER TUBE SCH (08:13)
[2020-07-03] MEDS: Clopidogrel Bisulfate 75 MG TAB PO SCH (08:13)
[2020-07-03] MEDS: fentaNYL Citrate/PF 2,000 MCG in Sodium Chloride 0.9% 60 ML IV SCH ×2 (09:39→23:01)
[2020-07-03 09:56] LABS: Anion Gap 16 mmol/L (10-20); BUN (Urea Nitrogen) 46 mg/dL (8.4-25.7); Calc. Creatinine Clearance 133 mL/min (70-130); Calcium 8.1 mg/dL (7.8-10.44); Carbon Dioxide 24 mmol/L (23-31); Chloride 104 mmol/L (98-107); Glucose 128 mg/dL (80-115); Potassium 5.1 mmol/L (3.5-5.1); Sodium 139 mmol/L (136-145)
--- NOTE | 2020-07-03 13:17 | PRG ---
DATE OF SERVICE: 07/01/2020 SUBJECTIVE: Mr. Ayala is essentially unchanged. Remains in prone positioning for ventilation with rate of 20, bilevel 18/13 with a FiO2 of 90%. His family conference yesterday has not altered plans or expectations. They were able to see him via FaceTime. PHYSICAL EXAMINATION: VITAL SIGNS: Blood pressure 108/64, heart rate is 70, temperature 99.8, saturation 96% on ventilator settings as above. LUNGS: Show rhonchi, but no wheezing. HEART: Show regular rate and rhythm. ABDOMEN: Soft. There is no organomegaly. EXTREMITIES: He has no edema. He has no clubbing. There is no cords or tenderness. LABORATORY DATA: White count 24,900, hemoglobin is 11.4 with hematocrit of 34.8, and platelet count of 216,000. He still has 15% bands. Chemistry includes sodium 139, potassium 5.1, chloride 104, BUN 46, creatinine 0.95. He has not had an x-ray today. IMPRESSION: COVID pneumonia with hypoxemic respiratory failure requiring high ventilator support, prone positioning, FiO2 of 90%. PLAN: We will continue current therapies with little additional to add or offer at this point. At some point, a decision regarding tracheostomy versus withdrawal support would be entertained. However, he is not a candidate for tracheostomy as long as he is requiring prone positioning. Condition remains very critical. Critical care time 35 minutes. Job ID: [id number]
[2020-07-03 17:16] LABS: Puncture Site LRA
[2020-07-03 17:17] LABS: ALV-art Gradient 520.725 mmHg (0-20)
[2020-07-03] MEDS: Atorvastatin Calcium 40 MG TAB PER TUBE SCH (19:56)
[2020-07-03] MEDS: Cholecalciferol 1,000 UNITS (25 MCG) TAB PER TUBE SCH (20:18)
[2020-07-04] MEDS: Vecuronium 10 MG VIAL IVP PRN ×3 (02:51→20:37)
[2020-07-04] MEDS: Propofol 1,000 MG/100 ML VIAL IV PRN ×5 (02:51→19:55)
[2020-07-04 03:47] LABS: Band 10 % (5-11); Hemoglobin 10.3 g/dL (14.0-18.0); Hypochromia SLIGHT = 6-15 cells (100X) (0-5/hpf); MDiff Complete? YES; Mean Corpuscular Hemoglobin 32.5 pg (27.0-31.0); Mean Platelet Volume 9.2 fL (7.4-10.4); Monocytes 6 % (0-10); Neutrophil 84 % (42-75); Platelet Count 176 thou/uL (130-400); Platelet Morphology Comment Appears Decreased; RBC Distribution Width 14.6 % (11.5-14.5); Red Blood Cell (RBC) Count 3.18 mill/uL (4.70-6.10); White Blood Cell (WBC) Count 23.1 thou/uL (4.8-10.8)
[2020-07-04 03:52] LABS: ALT (SGPT) 78 U/L (8-55); AST (SGOT) 100 U/L (5-34); Albumin 2.5 g/dL (3.4-4.8); Alkaline Phosphatase 339 U/L (40-110); Anion Gap 18 mmol/L (10-20); BUN (Urea Nitrogen) 55 mg/dL (8.4-25.7); Bilirubin, Total 2.2 mg/dL (0.2-1.2); Calc. Creatinine Clearance 80 mL/min (70-130); Calcium 8.3 mg/dL (7.8-10.44); Carbon Dioxide 26 mmol/L (23-31); Chloride 104 mmol/L (98-107); Globulin 4.5 g/dL (2.4-3.5); Glucose 147 mg/dL (80-115); Potassium 6.1 mmol/L (3.5-5.1); Sodium 142 mmol/L (136-145)
--- NOTE | 2020-07-04 06:50 | PDOC.FM ---
- Subjective Subjective: Intubated, sedated, and prone this morning. Required increase in FiO2 overnight. - Objective Vital Signs & Weight: Vital Signs (12 hours) Temp Pulse Resp Pulse Ox 07/04/20 06:00 20 07/04/20 04:00 97.4 F L 20 07/04/20 02:16 93 22 H 96 07/04/20 02:00 21 H 07/04/20 00:00 20 07/03/20 23:00 98.9 F 07/03/20 22:10 117 H 20 90 L 07/03/20 22:00 20 07/03/20 20:00 101.2 F H 48 H 83 L Weight Admit Weight 121.109 kg Weight 118.025 kg Most Recent Monitor Data Heart Rate from ECG 99 NIBP 123/57 NIBP BP-Mean 79 Respiration from ECG 20 SpO2 93 I&O: 07/02/20 07/03/20 07/04/20 06:59 06:59 06:59 Intake Total 1292.7 1328.9 1110 Output Total 1752 1653 1280 Balance -459.3 -324.1 -170 Result Diagrams: 07/04/20 03:00 07/04/20 03:00 Phys Exam - Physical Examination Sedated, prone intubated, mild scattered areas of skin breakdown to face Signficant inspiratory rhonci diffusely, shallow inspirations Cardiovascular: RRR trace diffuse non pitting edema to all extremities Skin: no rash Dx/Plan - Plan Plan: Neuro: - On Propofol and Fentanyl for sedation and pain management. Respiratory: - Intubated 06/19/20. - Symptom onset 06/15. Positive test on 06/17 - COVID 19 PNA: On Dexamethasone, Duonebs, and intermediate dose lovenox. - Pulm consulted, appreciate remy porter for possible VAP - procal down trending - does not tolerate leaving prone position - not candidate for trach at this time Cardiovascular: - amlodipine. Holding home hydralazine and coreg. Will monitor pressures - Elevated troponin - lovenox dc'd due to worsening renal function Gastrointestinal: - On Protonix for GI ppx. Nutrition: - Tube feeds initiated 06/20. - Tolerating Genitourinary/Renal: - Cr bumped from yesterday to 1.57 - potassium elevated this morning to 6.1, will give kayexalate - Rx adjusted for renal protection Hematologic: - Lovenox dc'd due to renal function - platelets stable Infectious disease: - Urine and blood cx showed no growth - sig wbc elevation, worsening cxr, increased vent requirements- possible VAP - Merem 07/01, repeat procal down trending Lines/Tubes: - Endotracheal tube - L femoral central line - 20g LAC - Brizuela catheter - OG Dispo: overall poor prognosis. will continue to discuss options with family. at this time patient has very poor prognosis and is showing little to no signs of improvement. Will need to discuss with family need for possible dialysis if r enal function continues to at this level although I would recommend against it considering patient's overall prognosis. Code: Full Diet: Tube feeds PCP: Joe
[2020-07-04] MEDS: Meropenem 2 GM, Admixture Fee 1 EACH in Sodium Chloride 0.9% 100 ML IVPB SCH ×3 (07:03→22:39)
[2020-07-04 08:09] LABS: Actual Bicarbonate (HCO3a) 23.7 mEq/L (22-28); Base Excess (BEa) -6.3 mEq/L (-2.0 to +3.0); Calcium, Ionized (arterial) 1.11 mmol/L (1.12-1.30); Carboxyhemoglobin (COHb) 0.7 gm% (0.0-3.0); Hemoglobin (Hb) 10.9 g/dL (14.0-18.0); Potassium - ABG Lab 6.06 mmol/L (3.70-5.30)
[2020-07-04] MEDS: Pantoprazole 40 MG GRANULES PACKET PER TUBE SCH ×2 (08:37→19:54)
[2020-07-04] MEDS: Aspirin Chewable 81 MG TAB PER TUBE SCH (08:37)
[2020-07-04] MEDS: Zinc Sulfate 220 MG CAP PER TUBE SCH (08:38)
[2020-07-04] MEDS: Clopidogrel Bisulfate 75 MG TAB PO SCH (08:38)
[2020-07-04] MEDS: Ascorbic Acid 500 mg Chewable Tablet PER TUBE SCH (08:38)
[2020-07-04] MEDS: Amlodipine 5 MG TAB PO SCH (08:38)
[2020-07-04] MEDS: Lorazepam 2 MG/ML VIAL SLOW IVP PRN ×3 (08:51→19:55)
[2020-07-04] MEDS: Dexamethasone Sod Phosphate 4 MG in Sodium Chloride 0.9% 50 ML IVPB SCH ×2 (08:52→19:54)
--- NOTE | 2020-07-04 08:55 | PRG ---
DATE OF SERVICE: 07/04/2020 TIME SPENT: 35 minutes of critical care time. SUBJECTIVE: The patient remains intubated on mechanical ventilation. He is in a prone position. He has not done very well over the weekend. OBJECTIVE: VITAL SIGNS: Temperature 97.4, pulse 92, blood pressure 111/56, and O2 saturation 95%. HEENT: Difficult to assess because he is in prone position. NECK: No JVD. LUNGS: Coarse rhonchi heard posteriorly. CARDIOVASCULAR: S1 and S2, regular. ABDOMEN: Obese. LABORATORY DATA: Sodium 142, potassium 6.1, chloride 104, CO2 of 26, BUN 55, creatinine 1.5, glucose 147, AST 100, and ALT 78. White blood cell count 23.1, hematocrit 32.3, and platelet count 176. ABG; pH of 7.13, pCO2 of 73, pO2 of 78, that is on assist control rate 27, FiO2 of 79%, PEEP of 13. ASSESSMENT: 1. COVID-19 pneumonia. 2. Acute respiratory failure, requiring mechanical ventilation. PLAN: The patient is starting to experience acute renal failure with developing hyperkalemia and increases BUN and creatinine. Based on that we should probably temporarily hold his Lovenox. I do not see any other drugs that he is on right now that would affect his potassium. We are continuing steroids in prone position on ventilation. I do not think he will survive current illness. Job ID: [id number]
[2020-07-04 09:25] LABS: CO2 Tension 73.1 mmHg (35.0-45.0); Puncture Site LRA; pH, Arterial 7.13 (7.35-7.45)
[2020-07-04 09:26] LABS: ALV-art Gradient 472.325 mmHg (0-20)
[2020-07-04] MEDS: fentaNYL Citrate/PF 2,000 MCG in Sodium Chloride 0.9% 60 ML IV SCH (12:49)
--- NOTE | 2020-07-04 13:31 | PRG ---
DATE OF SERVICE: 07/04/2020 Unfortunately, Mr. Ayala continues to deteriorate. He has absolutely horrible ABGs and is very difficult to ventilate because of his body habitus. He is difficult to ventilate even in the prone position. He is also starting to develop some acute renal failure. We will continue to follow with the intensive care service, but his prognosis is poor. Job ID: [id number]
--- NOTE | 2020-07-04 14:53 | PDOC.FMACP ---
Advance Care Planning - Problem (1) Palliative care encounter Status: Acute Code(s): Z51.5 - ENCOUNTER FOR PALLIATIVE CARE (2) Acute respiratory failure with hypoxia Status: Acute Code(s): J96.01 - ACUTE RESPIRATORY FAILURE WITH HYPOXIA (3) COVID-19 Status: Acute Code(s): U07.1 - COVID-19 (4) Pneumonia due to COVID-19 virus Status: Acute Code(s): U07.1 - COVID-19; J12.89 - OTHER VIRAL PNEUMONIA (5) HTN (hypertension) Status: Acute Code(s): I10 - ESSENTIAL (PRIMARY) HYPERTENSION - Note Participants: family, palliative care Summary: Palliative Care has revisited Advanced Care Planning with patient children, Jerrica is primary contact The diagnosis, prognosis and goals of care were discussed. Appropriate forms and documentation to accomplish the goals of care were discussed. All questions were answered. *Patient children have elected to transition to DNAR secondary to continued decline. *Palliative Care will revisit Goal of Care 07/05/2020 Please refer to Palliative Care notes in note section. Time Spent (mins): 15
[2020-07-04] MEDS: Cholecalciferol 1,000 UNITS (25 MCG) TAB PER TUBE SCH (19:54)
[2020-07-04] MEDS: Atorvastatin Calcium 40 MG TAB PER TUBE SCH (19:54)
[2020-07-05] MEDS: Propofol 1,000 MG/100 ML VIAL IV PRN ×6 (00:06→23:25)
[2020-07-05] MEDS: fentaNYL Citrate/PF 2,000 MCG in Sodium Chloride 0.9% 60 ML IV SCH ×2 (01:22→13:15)
[2020-07-05] MEDS: Vecuronium 10 MG VIAL IVP PRN ×3 (03:27→23:25)
[2020-07-05 05:36] LABS: ALT (SGPT) 68 U/L (8-55); AST (SGOT) 91 U/L (5-34); Albumin 2.4 g/dL (3.4-4.8); Alkaline Phosphatase 325 U/L (40-110); Anion Gap 18 mmol/L (10-20); BUN (Urea Nitrogen) 94 mg/dL (8.4-25.7); Bilirubin, Total 1.5 mg/dL (0.2-1.2); Calc. Creatinine Clearance 48 mL/min (70-130); Calcium 7.4 mg/dL (7.8-10.44); Carbon Dioxide 28 mmol/L (23-31); Chloride 103 mmol/L (98-107); Globulin 4.5 g/dL (2.4-3.5); Glucose 134 mg/dL (80-115); Potassium 5.6 mmol/L (3.5-5.1); Protein, Total 6.9 g/dL (5.8-8.1); Sodium 143 mmol/L (136-145)
[2020-07-05 05:48] LABS: Band 9 % (5-11); Hemoglobin 9.9 g/dL (14.0-18.0); Lymphocytes 3 % (21-51); MDiff Complete? YES; Mean Corpuscular HGB CONC 31.7 g/dL (32.0-36.0); Mean Corpuscular Hemoglobin 32.1 pg (27.0-31.0); Mean Platelet Volume 9.3 fL (7.4-10.4); Monocytes 3 % (0-10); Neutrophil 85 % (42-75); Nucleated RBC 1 % (0); Platelet Count 129 thou/uL (130-400); Platelet Morphology Comment Appears Adequate; RBC Distribution Width 14.7 % (11.5-14.5); Red Blood Cell (RBC) Count 3.07 mill/uL (4.70-6.10); White Blood Cell (WBC) Count 12.8 thou/uL (4.8-10.8)
[2020-07-05] MEDS: Meropenem 2 GM, Admixture Fee 1 EACH in Sodium Chloride 0.9% 100 ML IVPB SCH ×2 (05:54→17:26)
--- NOTE | 2020-07-05 06:50 | PDOC.FM ---
- Subjective Subjective: Remains intubated and prone. Unable to tolerate position change. Family agreed on DNAR yesterday which has been signed. - Objective Vital Signs & Weight: Vital Signs (12 hours) Temp Pulse Resp Pulse Ox 07/05/20 06:00 29 H 07/05/20 04:00 98.2 F 27 H 07/05/20 02:45 84 27 H 95 07/05/20 02:43 83 07/05/20 02:00 27 H 07/05/20 00:00 97.5 F L 07/04/20 23:55 28 H 07/04/20 22:11 91 27 H 91 L 07/04/20 22:09 91 07/04/20 22:00 27 H 07/04/20 20:00 97.4 F L 36 H 93 L Weight Admit Weight 121.109 kg Weight 117.843 kg Most Recent Monitor Data Heart Rate from ECG 98 NIBP 136/59 NIBP BP-Mean 84 Respiration from ECG 27 SpO2 88 I&O: 07/03/20 07/04/20 07/05/20 06:59 06:59 06:59 Intake Total 1328.9 1110 1224 Output Total 1653 1280 1115 Balance -324.1 -170 109 Result Diagrams: 07/05/20 03:30 07/05/20 03:30 Phys Exam - Physical Examination Prone, sedated ET tube in place, facial pressure dressings applied Respiratory: no wheezing, no rhonchi breath sounds are coarse, shallow inspirations Slightly tachycardic, difficult to fully auscultate prone trace edema in all extremities Skin: no rash, cap refill <2 seconds Dx/Plan - Plan Plan: Neuro: - On Propofol and Fentanyl for sedation and pain management. Respiratory: - Intubated 06/19/20. - Symptom onset 06/15. Positive test on 06/17 - COVID 19 PNA: On Dexamethasone, Duonebs, and intermediate dose lovenox. - Pulm consulted, appreciate remy porter for possible VAP - procal down trending - does not tolerate leaving prone position - not candidate for trach at this time - Vent on PAC, IP 35, PEEP 13, RR 27, FiO2 of 75 with O2 sats of 88% and PaO2 of 54% Cardiovascular: - amlodipine. Holding home hydralazine and coreg. Will monitor pressures - Elevated troponin - lovenox dc'd due to worsening renal function Gastrointestinal: - On Protonix for GI ppx. Nutrition: - Tube feeds initiated 06/20. - Tolerating Genitourinary/Renal: - Cr climbing rapidly - Potassium improved to 5.2 after kayexalate Hematologic: - Lovenox dc'd due to renal function - platelets at 127 Infectious disease: - Urine and blood cx showed no growth - sig wbc elevation, worsening cxr, increased vent requirements- possible VAP - Merem 07/01, repeat procal down trending Lines/Tubes: - Endotracheal tube - L femoral central line - 20g LAC - Brizuela catheter - OG Dispo: overall poor prognosis continues to worsen. Pt nearing need for h emodialysis however with being unable to tolerate any position changes from a respiratory standpoint he would be very difficult to initiate therapy on. Family made DNAR yesterday. Will continue to discuss with them the patient's poor outlook and at this point would recommend considering palliative measures. Will continue supportive care until decision is made either way.
[2020-07-05 07:49] LABS: Actual Bicarbonate (HCO3a) 25.6 mEq/L (22-28); Base Excess (BEa) -3.1 mEq/L (-2.0 to +3.0); Calcium, Ionized (arterial) 1.02 mmol/L (1.12-1.30); Carboxyhemoglobin (COHb) 1.2 gm% (0.0-3.0); Hemoglobin (Hb) 10.3 g/dL (14.0-18.0); Potassium - ABG Lab 5.49 mmol/L (3.70-5.30)
[2020-07-05 08:01] LABS: CO2 Tension 66.3 mmHg (35.0-45.0)
[2020-07-05 08:02] LABS: Puncture Site LRA
[2020-07-05 08:03] LABS: ALV-art Gradient 397.875 mmHg (0-20)
[2020-07-05] MEDS: Clopidogrel Bisulfate 75 MG TAB PO SCH (08:44)
[2020-07-05] MEDS: Dexamethasone Sod Phosphate 4 MG in Sodium Chloride 0.9% 50 ML IVPB SCH ×2 (08:44→20:21)
[2020-07-05] MEDS: Ascorbic Acid 500 mg Chewable Tablet PER TUBE SCH (08:44)
[2020-07-05] MEDS: Pantoprazole 40 MG GRANULES PACKET PER TUBE SCH ×2 (08:44→20:21)
[2020-07-05] MEDS: Aspirin Chewable 81 MG TAB PER TUBE SCH (08:44)
[2020-07-05] MEDS: Amlodipine 5 MG TAB PO SCH (08:45)
[2020-07-05] MEDS: Zinc Sulfate 220 MG CAP PER TUBE SCH (08:45)
[2020-07-05] MEDS: Sodium Chloride 0.9% 1,000 ML IV SCH ×3 (08:53→23:51)
--- NOTE | 2020-07-05 09:11 | PRG ---
DATE OF SERVICE: 07/05/2020 30 minutes critical care time. SUBJECTIVE: The patient remains intubated on mechanical ventilation in prone position. He is continuing to deteriorate despite aggressive management. OBJECTIVE: VITAL SIGNS: Temperature 98.2, pulse 96, blood pressure 125/70, O2 saturations 89%. HEENT: Unremarkable except for pressure from being in a prone position. NECK: No adenopathy or JVD. LUNGS: Coarse rhonchi. CARDIOVASCULAR: S1, S2. Regular. ABDOMEN: Soft. EXTREMITIES: Edematous. LABORATORY DATA: White blood cell count 12.8, hematocrit 31.1, and platelet count 129. PH of 7.2, pCO2 of 66, PO2 of 54 on assist control rate 27, PEEP of 13, FiO2 75%. Sodium 143, potassium 5.6, chloride 103, CO2 of 28, BUN 94, creatinine 2.6, glucose 134. Chest x-ray was not done today. ASSESSMENT: 1. COVID-19 pneumonia. 2. Acute respiratory failure, requiring mechanical ventilation. 3. Developing renal failure. PLAN: It seems more, more obvious that the patient will not survive current illness. He is getting to the point where he would need hemodialysis if aggressive intervention is to continue. I have nothing that I can do to help his lung situation except continue supportive care. Job ID: [id number]
[2020-07-05] MEDS: Lorazepam 2 MG/ML VIAL SLOW IVP PRN ×2 (13:08→23:26)
--- NOTE | 2020-07-05 13:21 | PRG ---
DATE OF SERVICE: 07/05/2020 I have discussed the case with Dr. Hadley clinically. Unfortunately, Mr. Ayala continues to deteriorate and developing progressive organ failure as well as respiratory failure despite mechanical ventilation. His prognosis for survival remains minimal. We will continue to follow with the intensive care service. Job ID: [id number]
[2020-07-05 16:28] LABS: Anion Gap 21 mmol/L (10-20); BUN (Urea Nitrogen) 99 mg/dL (8.4-25.7); Calc. Creatinine Clearance 46 mL/min (70-130); Calcium 7.3 mg/dL (7.8-10.44); Carbon Dioxide 22 mmol/L (23-31); Chloride 106 mmol/L (98-107); Glucose 132 mg/dL (80-115); Potassium 5.6 mmol/L (3.5-5.1); Sodium 143 mmol/L (136-145)
[2020-07-05] MEDS: Atorvastatin Calcium 40 MG TAB PER TUBE SCH (20:20)
[2020-07-05] MEDS: Cholecalciferol 1,000 UNITS (25 MCG) TAB PER TUBE SCH (20:20)
[2020-07-06] MEDS: fentaNYL Citrate/PF 2,000 MCG in Sodium Chloride 0.9% 60 ML IV SCH ×3 (00:45→23:49)
[2020-07-06 04:33] LABS: Band 4 % (5-11); Hemoglobin 9.1 g/dL (14.0-18.0); Hypochromia SLIGHT = 6-15 cells (100X) (0-5/hpf); Lymphocytes 8 % (21-51); MDiff Complete? YES; Mean Corpuscular HGB CONC 31.8 g/dL (32.0-36.0); Mean Platelet Volume 9.6 fL (7.4-10.4); Neutrophil 88 % (42-75); Platelet Count 115 thou/uL (130-400); Platelet Morphology Comment Appears Decreased; RBC Distribution Width 14.9 % (11.5-14.5); Red Blood Cell (RBC) Count 2.84 mill/uL (4.70-6.10); White Blood Cell (WBC) Count 13.7 thou/uL (4.8-10.8)
[2020-07-06 04:35] LABS: ALT (SGPT) 61 U/L (8-55); AST (SGOT) 96 U/L (5-34); Albumin 2.4 g/dL (3.4-4.8); Alkaline Phosphatase 378 U/L (40-110); Anion Gap 16 mmol/L (10-20); BUN (Urea Nitrogen) 104 mg/dL (8.4-25.7); Bilirubin, Total 1.4 mg/dL (0.2-1.2); Calc. Creatinine Clearance 49 mL/min (70-130); Calcium 7.3 mg/dL (7.8-10.44); Carbon Dioxide 25 mmol/L (23-31); Chloride 106 mmol/L (98-107); Globulin 4.4 g/dL (2.4-3.5); Glucose 122 mg/dL (80-115); Potassium 5.4 mmol/L (3.5-5.1); Protein, Total 6.8 g/dL (5.8-8.1); Sodium 142 mmol/L (136-145)
[2020-07-06] MEDS: Vecuronium 10 MG VIAL IVP PRN (05:24)
[2020-07-06] MEDS: Lorazepam 2 MG/ML VIAL SLOW IVP PRN (05:25)
[2020-07-06] MEDS: Meropenem 2 GM, Admixture Fee 1 EACH in Sodium Chloride 0.9% 100 ML IVPB SCH ×2 (05:42→17:19)
[2020-07-06] MEDS: Clopidogrel Bisulfate 75 MG TAB PO SCH (08:01)
[2020-07-06] MEDS: Pantoprazole 40 MG GRANULES PACKET PER TUBE SCH ×2 (08:01→20:30)
[2020-07-06] MEDS: Propofol 1,000 MG/100 ML VIAL IV PRN ×4 (08:01→20:29)
[2020-07-06] MEDS: Aspirin Chewable 81 MG TAB PER TUBE SCH (08:01)
[2020-07-06] MEDS: Dexamethasone Sod Phosphate 4 MG in Sodium Chloride 0.9% 50 ML IVPB SCH ×2 (08:01→20:30)
[2020-07-06] MEDS: Amlodipine 5 MG TAB PO SCH (08:01)
[2020-07-06] MEDS: Zinc Sulfate 220 MG CAP PER TUBE SCH (08:01)
[2020-07-06] MEDS: Ascorbic Acid 500 mg Chewable Tablet PER TUBE SCH (08:01)
[2020-07-06] MEDS: Sodium Chloride 0.9% 1,000 ML IV SCH ×2 (08:02→09:05)
[2020-07-06 08:24] LABS: Actual Bicarbonate (HCO3a) 25.5 mEq/L (22-28); Base Excess (BEa) -3.5 mEq/L (-2.0 to +3.0); Calcium, Ionized (arterial) 1.06 mmol/L (1.12-1.30); Carboxyhemoglobin (COHb) 0.8 gm% (0.0-3.0); Hemoglobin (Hb) 9.4 g/dL (14.0-18.0); O2 Tension (PaO2), arterial 75.6 mmHg (> 80.0); Potassium - ABG Lab 5.02 mmol/L (3.70-5.30)
[2020-07-06 08:25] LABS: CO2 Tension 70.4 mmHg (35.0-45.0); Puncture Site LRA; pH, Arterial 7.18 (7.35-7.45)
--- NOTE | 2020-07-06 09:14 | PRG ---
DATE OF SERVICE: 07/06/2020 35 minutes of critical care time. SUBJECTIVE: The patient remains intubated on mechanical ventilation in a prone position. OBJECTIVE: VITAL SIGNS: His temperature 99.1, pulse 83, blood pressure 131/62, O2 saturation in the mid 90s. 24-hour intake 3495, output 1945. HEENT: Unremarkable. NECK: No adenopathy or JVD. LUNGS: Poor air movement. CARDIAC: S1 and S2, regular. ABDOMEN: Distended. EXTREMITIES: Edematous. LABORATORY DATA: Sodium 142, potassium 5.4, chloride 106, CO2 of 25, BUN 104, creatinine 2.5, glucose 122. White blood cell count 13.7, hematocrit 28.6, and platelet count 115. pH 7.18, pCO2 of 70, PO2 of 75. ASSESSMENT: 1. COVID-19 pneumonia. 2. Acute renal failure. 3. Acute respiratory failure, requiring mechanical ventilation. PLAN: At this point, nothing seems to be working on this patient. I have increased the pressure on the ventilator, so that we can achieve better minute ventilation. I am holding out no hope that this will work. I think if the family wants to press on, that dialysis would have to be considered, although, I do not think that we will likely change things. Job ID: [id number]
--- NOTE | 2020-07-06 10:13 | PDOC.FM ---
- Subjective Subjective: Intubated, sedated, prone. - Objective Vital Signs & Weight: Vital Signs (12 hours) Temp Pulse Resp BP Pulse Ox 07/06/20 08:01 90 146/65 H 07/06/20 08:00 98.7 F 94 L 07/06/20 07:54 90 146/65 H 07/06/20 06:00 27 H 07/06/20 04:00 99.1 F 27 H 95 07/06/20 02:07 96 07/06/20 02:04 99 27 H 89 L 07/06/20 02:00 27 H 07/06/20 00:00 99.1 F 27 H 07/05/20 23:16 89 27 H 90 L 07/05/20 23:14 89 Weight Admit Weight 121.109 kg Weight 118.2 kg Most Recent Monitor Data Heart Rate from ECG 89 NIBP 143/69 NIBP BP-Mean 93 Respiration from ECG 17 SpO2 94 I&O: 07/05/20 07/06/20 07/07/20 06:59 06:59 06:59 Intake Total 1224 3495 50 Output Total 1115 1945 150 Balance 109 1550 -100 Result Diagrams: 07/06/20 03:58 07/06/20 03:58 Phys Exam - Physical Examination Constitutional: NAD ET and OG tube present, facial pressure dressings very short inspiratory phase, coarse with rhonci Cardiovascular: RRR diffuse non pitting edema to extremities sedated Skin: no rash Dx/Plan - Plan Plan: Neuro: - On Propofol and Fentanyl for sedation and pain management. Respiratory: - Intubated 06/19/20. - Symptom onset 06/15. COVID Positive test on 06/17 - COVID 19 PNA: On Dexamethasone, Duonebs - Pulm consulted, appreciate remy porter for possible VAP - does not tolerate leaving prone position - not candidate for trach at this time - requiring increasing pressures and FiO2 to maintain oxygenation, worsening lung compliance Cardiovascular: - amlodipine. Holding home hydralazine and coreg. Will monitor pressures Gastrointestinal: - On Protonix for GI ppx. Nutrition: - Tube feeds initiated 06/20. - Tolerating Genitourinary/Renal: - Renal function worsening, mild Cr improvement with fluids - Potassium improved to 5.2 after kayexalate - Discussed possible need for hemodialysis with daughter who wishes to avoid right now Hematologic: - Lovenox dc'd due to renal function - platelets at 115 Infectious disease: - Urine and blood cx showed no growth - Possible VAP - Merem 07/01 Lines/Tubes: - Endotracheal tube - L femoral central line - 20g LAC - Brizuela catheter - OG Dispo: Continuing supportive care at this time. Pulm attempting to maximize oxygenation on the vent but with significant difficulty due to worsening lung compliance. Family does not wish to proceed down the road of hemodialysis at this time. Palliative continuing to discuss options including palliative extubation. Pt will be off precautions in 2 days which would allow family to be present.
--- NOTE | 2020-07-06 13:12 | PRG ---
DATE OF SERVICE: 07/06/[address] Garcia's note and discussed the case with him. I agree with his assessment and plan. Mr. Ayala stay remains critical with a poor prognosis. Job ID: [id number]
[2020-07-06] MEDS: Atorvastatin Calcium 40 MG TAB PER TUBE SCH (20:29)
[2020-07-06] MEDS: Cholecalciferol 1,000 UNITS (25 MCG) TAB PER TUBE SCH (20:33)
[2020-07-07] MEDS: Propofol 1,000 MG/100 ML VIAL IV PRN ×6 (01:01→22:46)
[2020-07-07 05:17] LABS: Band 10 % (5-11); Hemoglobin 9.5 g/dL (14.0-18.0); Lymphocytes 5 % (21-51); MDiff Complete? YES; Mean Corpuscular HGB CONC 33.5 g/dL (32.0-36.0); Mean Corpuscular Hemoglobin 33.8 pg (27.0-31.0); Mean Platelet Volume 10.2 fL (7.4-10.4); Metamyelocyte 1 % (0-0); Monocytes 4 % (0-10); Neutrophil 80 % (42-75); Platelet Count 88 thou/uL (130-400); Platelet Morphology Comment Appears Decreased; RBC Distribution Width 14.8 % (11.5-14.5); Red Blood Cell (RBC) Count 2.82 mill/uL (4.70-6.10); White Blood Cell (WBC) Count 15.9 thou/uL (4.8-10.8)
[2020-07-07 05:30] LABS: ALT (SGPT) 52 U/L (8-55); AST (SGOT) 103 U/L (5-34); Albumin 2.4 g/dL (3.4-4.8); Alkaline Phosphatase 440 U/L (40-110); Anion Gap 20 mmol/L (10-20); BUN (Urea Nitrogen) 110 mg/dL (8.4-25.7); Bilirubin, Total 1.6 mg/dL (0.2-1.2); Calc. Creatinine Clearance 52 mL/min (70-130); Calcium 7.8 mg/dL (7.8-10.44); Carbon Dioxide 24 mmol/L (23-31); Chloride 108 mmol/L (98-107); Globulin 4.6 g/dL (2.4-3.5); Glucose 117 mg/dL (80-115); Potassium 5.7 mmol/L (3.5-5.1); Sodium 146 mmol/L (136-145)
[2020-07-07] MEDS: Meropenem 2 GM, Admixture Fee 1 EACH in Sodium Chloride 0.9% 100 ML IVPB SCH ×2 (05:53→17:05)
--- NOTE | 2020-07-07 07:39 | PDOC.FM ---
- Subjective Subjective: Intubated, sedated, and prone. Little changes from yesterday. No acute events overnight. - Objective Vital Signs & Weight: Vital Signs (12 hours) Temp Pulse Resp BP Pulse Ox 07/07/20 06:00 27 H 07/07/20 03:56 27 H 07/07/20 03:50 92 122/61 07/07/20 03:00 99.4 F 07/07/20 02:00 27 H 07/07/20 00:00 98.7 F 07/06/20 23:54 27 H 07/06/20 23:21 100 07/06/20 22:00 27 H 07/06/20 20:00 98.8 F 104 H 88 L 07/06/20 19:55 29 H Weight Admit Weight 121.109 kg Weight 119.2 g Most Recent Monitor Data Heart Rate from ECG 99 NIBP 130/60 NIBP BP-Mean 83 Respiration from ECG 28 SpO2 93 I&O: 07/06/20 07/07/20 07/08/20 06:59 06:59 06:59 Intake Total 3495 1901 Output Total 1945 1870 Balance 1550 31 Result Diagrams: 07/07/20 04:15 07/07/20 04:15 Phys Exam - Physical Examination Constitutional: NAD ET, OG tube, facial compression dressings Diffuse mild crackles, shallow inspiration Slightly tachycardic distended, lateral ecchymosis from injections Musculoskeletal: edema present (2+) sedated Dx/Plan - Plan Plan: Neuro: - On Propofol and Fentanyl for sedation and pain management. Respiratory: - Intubated 06/19/20. - Symptom onset 06/15. COVID Positive test on 06/17 - COVID 19 PNA: On Dexamethasone, Duonebs - Pulm consulted, appreciate remy porter for possible VAP - does not tolerate leaving prone position - not candidate for trach at this time - requiring increasing pressures and FiO2 to maintain oxygenation, worsening lung compliance - currently unable to decrease FiO2 from 100% Cardiovascular: - amlodipine. Holding home hydralazine and coreg. Will monitor pressures Gastrointestinal: - On Protonix for GI ppx. Nutrition: - Tube feeds initiated 06/20. - Tolerating Genitourinary/Renal: - Renal function worsening, mild Cr improvement with fluids - Potassium remains elevated - Discussed possible need for hemodialysis with daughter who wishes to avoid right now - Pt is edematous and has mild crackles on exam - will give low dose lasix to improve fluid balance and assist bringing down potassium Hematologic: - Lovenox dc'd due to renal function - platelets at 88 Infectious disease: - Urine and blood cx showed no growth - Possible VAP - Mere 07/01 Lines/Tubes: - Endotracheal tube - L femoral central line - 20g LAC - Brizuela catheter - OG Dispo: Prognosis again remains poor. Becoming more difficult to oxygenate everyday with worsening lung compliance. Cannot leave prone position making other supportive measures difficult or impossible. Renal function at this time is somewhat stable but in a fragile state. Family to come tomorrow to see the patient and discuss palliative extubation. Will be present at that time to answer any questions.
[2020-07-07] MEDS ORDERED: Furosemide 20 MG/2 ML VIAL SLOW IVP SCH (08:15)
[2020-07-07] MEDS: Ascorbic Acid 500 mg Chewable Tablet PER TUBE SCH (08:19)
[2020-07-07] MEDS: Aspirin Chewable 81 MG TAB PER TUBE SCH (08:19)
[2020-07-07] MEDS: Amlodipine 5 MG TAB PO SCH (08:20)
[2020-07-07] MEDS: Pantoprazole 40 MG GRANULES PACKET PER TUBE SCH ×2 (08:20→20:56)
[2020-07-07] MEDS: Clopidogrel Bisulfate 75 MG TAB PO SCH (08:20)
[2020-07-07] MEDS: Zinc Sulfate 220 MG CAP PER TUBE SCH (08:20)
[2020-07-07] MEDS: Sodium Chloride 0.9% 1,000 ML IV SCH (08:21)
[2020-07-07] MEDS: Dexamethasone Sod Phosphate 4 MG in Sodium Chloride 0.9% 50 ML IVPB SCH ×2 (08:36→20:56)
--- NOTE | 2020-07-07 08:38 | PRG ---
DATE OF SERVICE: 07/07/2020 35 minutes of critical care time. SUBJECTIVE: The patient remains intubated on mechanical ventilation. He has been in a prone position for many days. OBJECTIVE: VITAL SIGNS: Temperature is 99.4, pulse 95, blood pressure 138/62, O2 saturation 93%. 24-hour intake is 1901, output 1870. HEENT: Hard to examine because of prone position. NECK: No JVD. LUNGS: Coarse rhonchi. CARDIOVASCULAR: S1 and S2. Regular. ABDOMEN: Obese, soft, nontender. EXTREMITIES: Edematous. LABORATORY DATA: White blood cell count 15.9, hematocrit 28.5, and platelet count 88. Sodium 146, potassium 5.7, chloride 108, CO2 of 24, BUN 110, creatinine 2.4, and glucose 117. ASSESSMENT: 1. COVID-19 pneumonia. 2. Acute hypoxic respiratory failure, requiring mechanical ventilation. 3. Acute renal failure with hyperkalemia. PLAN: This patient is dying of multiple organ failure. Nothing that we are doing appears to be reversing the situation. Essentially, we are waiting for the patient to come out of isolation tomorrow, so the family can come and visit. I think care will be withdrawn shortly there after that. Job ID: [id number]
[2020-07-07 08:45] LABS: Actual Bicarbonate (HCO3a) 23.9 mEq/L (22-28); Base Excess (BEa) -2.6 mEq/L (-2.0 to +3.0); CO2 Tension 49.3 mmHg (35.0-45.0); Calcium, Ionized (arterial) 1.12 mmol/L (1.12-1.30); Carboxyhemoglobin (COHb) 0.4 gm% (0.0-3.0); Hemoglobin (Hb) 9.6 g/dL (14.0-18.0); O2 Tension (PaO2), arterial 62.9 mmHg (> 80.0); Potassium - ABG Lab 5.12 mmol/L (3.70-5.30)
[2020-07-07 08:47] LABS: ALV-art Gradient 588.475 mmHg (0-20); Puncture Site RRA
[2020-07-07] MEDS: Lorazepam 2 MG/ML VIAL SLOW IVP PRN (10:09)
[2020-07-07] MEDS: fentaNYL Citrate/PF 2,000 MCG in Sodium Chloride 0.9% 60 ML IV SCH (14:52)
--- NOTE | 2020-07-07 16:01 | PRG ---
DATE OF SERVICE: 07/07/2020 I have reviewed the note of Dr. Jomar Garcia, and agree with his assessment and plan. Mr. Ayala is a very unfortunate gentleman who is critically ill from COVID-19 pneumonia. He is still on a mechanical ventilator for his acute hypoxic respiratory failure and has developed acute renal failure with hyperkalemia. He is currently experiencing multiple organ failure and his prognosis is extremely poor. He is becoming more difficult to oxygenate every day with worsening lung compliance. We will continue to follow with the sales representative health insurance. Job ID: [id number]
[2020-07-07 20:23] VITALS: TEMP 99.1
[2020-07-07] MEDS: Atorvastatin Calcium 40 MG TAB PER TUBE SCH (20:56)
[2020-07-07] MEDS: Cholecalciferol 1,000 UNITS (25 MCG) TAB PER TUBE SCH (20:57)
[2020-07-07] MEDS: Vecuronium 10 MG VIAL IVP PRN (23:22)
[2020-07-08] MEDS: Propofol 1,000 MG/100 ML VIAL IV PRN (03:29)
[2020-07-08 05:42] LABS: ALT (SGPT) 119 U/L (8-55); AST (SGOT) 206 U/L (5-34); Albumin 2.4 g/dL (3.4-4.8); Alkaline Phosphatase 427 U/L (40-110); Anion Gap 23 mmol/L (10-20); Bilirubin, Total 1.8 mg/dL (0.2-1.2); Calc. Creatinine Clearance 0 mL/min (70-130); Calcium 8.2 mg/dL (7.8-10.44); Carbon Dioxide 24 mmol/L (23-31); Chloride 107 mmol/L (98-107); Glucose 127 mg/dL (80-115); Protein, Total 7.4 g/dL (5.8-8.1); Sodium 147 mmol/L (136-145)
[2020-07-08 06:14] LABS: BUN (Urea Nitrogen) 115 mg/dL (8.4-25.7); Potassium 7.1 mmol/L (3.5-5.1)
[2020-07-08] MEDS: Vecuronium 10 MG VIAL IVP PRN (06:29)
[2020-07-08 06:41] LABS: Anisocytosis MODERATE=16-30 cells (100X) (0-5/hpf); Band 12 % (5-11); Hemoglobin 9.3 g/dL (14.0-18.0); Lymphocytes 2 % (21-51); MDiff Complete? YES; Mean Corpuscular HGB CONC 33.7 g/dL (32.0-36.0); Mean Corpuscular Hemoglobin 33.7 pg (27.0-31.0); Mean Corpuscular Volume 99.9 fL (78.0-98.0); Mean Platelet Volume 11.3 fL (7.4-10.4); Neutrophil 86 % (42-75); Platelet Count 86 thou/uL (130-400); Platelet Morphology Comment Appears Decreased; RBC Distribution Width 15.2 % (11.5-14.5); Red Blood Cell (RBC) Count 2.76 mill/uL (4.70-6.10); White Blood Cell (WBC) Count 23.5 thou/uL (4.8-10.8)
--- NOTE | 2020-07-08 06:45 | PDOC.FM ---
- Subjective Subjective: Intubated, sedated, prone. Family is at bedside. State they have said their goodbyes and don't want him to continue like this. - Objective Vital Signs & Weight: Vital Signs (12 hours) Temp Pulse Resp BP Pulse Ox 07/08/20 05:55 27 H 07/08/20 03:49 27 H 07/08/20 02:12 105 H 100/51 L 07/08/20 02:00 27 H 07/08/20 01:28 106 H 109/55 L 07/08/20 00:00 27 H 07/07/20 22:55 106 H 115/58 L 07/07/20 22:00 27 H 07/07/20 20:00 99.1 F 89 L 07/07/20 19:38 29 H 07/07/20 19:22 101 H 101/55 L Weight Admit Weight 121.109 kg Weight 119.2 g Most Recent Monitor Data Heart Rate from ECG 102 NIBP 83/46 NIBP BP-Mean 58 Respiration from ECG 29 SpO2 89 I&O: 07/06/20 07/07/20 07/08/20 06:59 06:59 06:59 Intake Total 3495 1901 945 Output Total 1945 1870 2100 Balance 1550 31 -1155 Result Diagrams: 07/08/20 04:00 07/08/20 04:00 Phys Exam - Physical Examination Constitutional: NAD Facial pressure ulcers, ET, OG Diffuse rhonci Cardiovascular: RRR Distended Musculoskeletal: edema present sedated Deviation from normal: lateral abdominal bruising from anticoag inj Dx/Plan - Plan Plan: Neuro: - On Propofol and Fentanyl for sedation and pain management. Respiratory: - Intubated 06/19/20. - Symptom onset 06/15. COVID Positive test on 06/17 - COVID 19 PNA: On Dexamethasone, Duonebs - Pulm consulted, appreciate recs, merem for possible VAP - does not tolerate leaving prone position - not candidate for trach at this time - requiring increasing pressures and FiO2 to maintain oxygenation, worsening lung compliance - currently unable to decrease FiO2 from 100% Cardiovascular: - borderline pressures this morning - hold amlodipine - MAP's high enough to not necessitate pressers Gastrointestinal: - On Protonix for GI ppx. Nutrition: - Tube feeds initiated 06/20 - Tolerating Genitourinary/Renal: - Renal function continues to worsen - Potassium severely elevated this morning - bicarb, insulin and D50 ordered - will discuss with family regarding more aggressive measures Hematologic: - Lovenox dc'd due to renal function - platelets at 86 Infectious disease: - Urine and blood cx showed no growth - Possible VAP - Mere 07/01 Lines/Tubes: - Endotracheal tube - L femoral central line - 20g LAC - Brizuela catheter - OG Dispo: Pt currently becoming more unstable. Family at bedside stating that they have said their goodbyes and are interested in withdrawing care this morning as they do not want their father to continue like this. Palliative contacted for assistance, will be coming to speak to family. I answered all of their questions and discussed the extubation process with them.
[2020-07-08] MEDS ORDERED: Dextrose 50% Abboject 50 ML SYRINGE SLOW IVP PRN (06:52)
[2020-07-08] MEDS ORDERED: Sodium Bicarb 50 MEQ/50 ML Abboject 8.4% SYRINGE IVP SCH (07:00)
[2020-07-08] MEDS ORDERED: Insulin Regular 300 UNITS/3 ML VIAL IVP SCH (07:00)
[2020-07-08] MEDS: fentaNYL Citrate/PF 2,000 MCG in Sodium Chloride 0.9% 60 ML IV SCH (07:02)
[2020-07-08] MEDS: Meropenem 2 GM, Admixture Fee 1 EACH in Sodium Chloride 0.9% 100 ML IVPB SCH (07:25)
[2020-07-08] MEDS: Aspirin Chewable 81 MG TAB PER TUBE SCH (07:33)
[2020-07-08] MEDS: Ascorbic Acid 500 mg Chewable Tablet PER TUBE SCH (07:33)
[2020-07-08] MEDS: Clopidogrel Bisulfate 75 MG TAB PO SCH (07:34)
[2020-07-08] MEDS: Zinc Sulfate 220 MG CAP PER TUBE SCH (07:34)
[2020-07-08] MEDS: Pantoprazole 40 MG GRANULES PACKET PER TUBE SCH (07:34)
[2020-07-08] MEDS ORDERED: Sodium Bicarb 50 MEQ/50 ML Abboject 8.4% SYRINGE ONE (07:57)
[2020-07-08 08:16] VITALS: BP 98/45
[2020-07-08] MEDS ORDERED: Lorazepam 2 MG/ML VIAL SLOW IVP PRN ×2 (09:21)
[2020-07-08] MEDS ORDERED: Scopolamine 1.5 mg/72 hour Patch TD PRN ×2 (09:21)
[2020-07-08] MEDS ORDERED: Haloperidol Lactate 5 MG/ML VIAL SLOW IVP PRN (09:21)
--- NOTE | 2020-07-08 09:35 | PRG ---
DATE OF SERVICE: 07/08/2020 The patient has continued to worsen overnight. His family has arrived today and they are in favor of compassionate extubation which would be performed later this morning. I have reviewed the patient's notes and labs and examined the patient. I am in agreement that this case is hopeless, and I think compassionate extubation is the right way to proceed. Job ID: [id number]
[2020-07-08] MEDS: Lorazepam 2 MG/ML VIAL SLOW IVP PRN (09:36)
[2020-07-08] MEDS: Sodium Chloride 0.9% 1,000 ML IV SCH (09:52)
[2020-07-08] MEDS: Dexamethasone Sod Phosphate 4 MG in Sodium Chloride 0.9% 50 ML IVPB SCH (09:52)
[2020-07-08] MEDS ORDERED: Hyoscyamine Sulfate SL 0.125 mg Tablet SL PRN (10:00)
--- NOTE | 2020-07-08 10:35 | PDOC.BPN ---
- Brief Progress Note Encounter Date: 07/08/20 Encounter Time: 09:00 Talked to family at bedside. They wish to proceed with comfort measures and extubation today. Discussed option for hospice assistance and what that means and they politely declined. Will prepare family and patient for palliative extubation later this morning.
--- NOTE | 2020-07-08 12:42 | PRG ---
DATE OF SERVICE: 07/08/2020 ADDENDUM: Please add this as an addendum to the note of Dr. Jomar Garcia. Mr. Ayala is to be compassionately extubated later this morning. I have reviewed the case with Dr. Garcia and agree with his assessment and plan. Job ID: [id number]
--- NOTE | 2020-07-08 13:29 | PDOC.PALPN ---
Palliative Progress Note - Subjective Intubated, mechanical ventilation. Dr Garcia and Dr Gutierrez conveyed to family continued decline despite aggressive measures. - Objective Vital Signs: Vital Signs - Most Recent Temp Pulse Resp BP Pulse Ox 99.1 F 102 H 27 H 98/45 L 87 L 07/07/20 20:00 07/08/20 08:14 07/08/20 08:00 07/08/20 08:14 07/08/20 08:00 - Physical Exam Constitutional: encephalitic, ill appearing Deviation from normal: facial ulcers HEENT: moist MMs Deviation from normal: adventicious Cardiovascular: RRR Gastrointestinal: soft, incontinent Genitourinary: charles catheter Musculoskeletal: edema present Skin: fragile, friable Deviation from normal: encephalopathic - Assessment (1) Palliative care encounter Code(s): Z51.5 - ENCOUNTER FOR PALLIATIVE CARE Status: Acute (2) Acute respiratory failure with hypoxia Code(s): J96.01 - ACUTE RESPIRATORY FAILURE WITH HYPOXIA Status: Acute (3) COVID-19 Code(s): U07.1 - COVID-19 Status: Acute (4) Pneumonia due to COVID-19 virus Code(s): U07.1 - COVID-19; J12.89 - OTHER VIRAL PNEUMONIA Status: Acute (5) HTN (hypertension) Code(s): I10 - ESSENTIAL (PRIMARY) HYPERTENSION Status: Acute - Plan Plan: Family meeting with Palliative care and Dr Garcia as well as Spiritual care. Electing to compassionately extubate Mr Aylaa and provide comfort at end of life. Family was introduced to the option of having hospice come in and provide an overlay of care. They did not desire to have hospice services. Emotional support [35] minutes spent on this encounter with >50% of the time in counseling and coordination of care. - ROS Non Response: due to endotracheal tube, due to mental status
--- NOTE | 2020-07-10 17:57 | DIS ---
DATE OF ADMISSION: 06/19/2020 DATE OF DISCHARGE: 07/08/2020 ATTENDING: Chris Galan MD. RESIDENT: Jomar Garcia DO. DATE OF : 07/08/2020. TIME OF : 10:43 a.m. CAUSE OF : Acute hypoxic respiratory failure and sepsis secondary to COVID pneumonia. SECONDARY DIAGNOSES: Hypertension, acute renal failure, coronary artery disease status post coronary artery bypass grafting and stents, hyperlipidemia, morbid obesity. HOSPITAL COURSE: A 64-year-old male presented to the emergency department with acute respiratory distress. He had developed symptoms suggestive of COVID several days prior to admission. He swabbed for COVID a couple days prior to admission and had resulted positive on the day of admission. The patient arrived to the emergency department, intubated from the field due to an oxygen saturation of 60% and being combative. The patient was subsequently admitted to the ICU for ventilator management. He was treated routinely with azithromycin, dexamethasone, vancomycin, cefepime, and Lovenox. He required pressors for the first several days of his admission. Throughout his stay, the patient developed worsening lung compliance, becoming very difficult to appropriately ventilate and oxygenate. The patient had to remain in the prone position due to dropping oxygen saturations with any other positions or movements. The patient was deemed not a candidate for a trach due to him having to remain prone. Toward the end of his admission, he started to develop severe acute renal failure with severe levels of potassium. Palliative was consulted and they routinely were in contact with family. After 21 days following a COVID positive test, family was able to come and see the patient off precautions. While they were here, they decided that they would like to withdrawal care and pursue palliative measures. The patient was subsequently repositioned supine and extubated and rapidly demised with subsequent asystole and no respiratory efforts. The patient was pronounced at 10:43 a.m. on 07/08/2020. Family was present at his side with Palliative and Pastoral Care present. Job ID: [id number]
--- NOTE | 2020-07-10 22:45 | PQF ---
CLINICAL DOCUMENTATION CLARIFICATION FORM: Dear : Chris Cespedes Date / Time: 07/10/2020 1673 Please exercise your independent, professional judgment in responding to the clarification form. Clinical indicators are provided on the bottom of this form for your review Based on the clinical indicators on admit, can you determine if Sepsis was present at the time of admission? Diagnosis: Sepsis Present on Admission (POA): [ ] Yes [ ] No [ ] Unable to determine Physician Signature: Date/Time: For continuity of documentation, please document condition throughout progress notes and discharge summary. Thank You. To be completed by CDI/Coding staff for physician review: Present Clinical Indicators - Signs / Symptoms / Labs Results and Location in Medical Record [X] WBC 6.1, Plt count 103, Neutrophils 89.6, Band 21, Latic acid 1.1, Procalcitonin 0.86 Laboratory 06/19 [X] Blood culture: No growth in 5days Microbiology 06/19 [X] BP 99/61, Pulse 102, Resp 30, Temp 101.3 Vital signs 06/19 [X] SIRS Scoring: Pt did meet at least 2 criteria ED notes p2 06/19 [X] started having symptoms of Covid starting last Saturday H&P p1 06/19 Dr Rodriguez [X] Acute Hypoxic Resp failure 2/2 Covid Pneumonia H&P p4 06/19 Dr Rodriguez [X] EDITH H&P p4 06/19 Dr Rodriguez [X] Caused of : sepsis due to Covid Pneumonia DS p1 07/08 Dr Garcia Present Risk Factors Results and Location in Medical Record [X] 64 year-old Male H&P p1 06/19 Dr Rodriguez [X] HTN H&P p1 06/19 Dr Rodriguez [X] Former smoker H&P p1 06/19 Dr Rodriguez [X] Obesity H&P p1 06/19 Dr RodriguezH&P p1 06/19 Dr Rodriguez [X] Covid Pneumonia H&P p4 06/19 Dr Rodriguez Present Treatments Results and Location in Medical Record [X] IV Vancomycin 1 gm SEP 29 [X] IV Levophed 8 mg SEP 29 [X] IV Ceftriaxone Sodium 2 gm SEP 30 [X] IV Cefepime 2 gm SEP 30 [X] IV Zithromax 500 mg SEP 30 [X] Convalescent Plasma Blood transfusion 06/20 [X] Mechanical ventilator Respiratory Panel 07/19 [X] Sepsis Activation ED notes p2 06/19 [X] Pulmo consult Consult Dr Gutierrez 06/20 CDS/Chinese Medicine Practitioner Signature: Clarissa Delvalle Phone #: [phone] Date/Time: 2244 This is a permanent part of the Medical Record [facility]
== END 2020-07-08 10:43 | disposition expired | DRG 870 ==
LOC: ERS 20:20 → CCU 20:54
PROVIDERS: ADMIT Family Medicine; ATTEND Family Medicine
PROC: 5A1955Z Respiratory Ventilation, Greater than 96 Consecutive Hours (ICD-10-PCS; principal; 2020-06-19)
PROC: 3E033XZ Introduction of Vasopressor into Peripheral Vein, Percutaneous Approach (ICD-10-PCS; 2020-06-19)
PROC: 8E0ZXY6 Isolation (ICD-10-PCS; 2020-06-19)
PROC: XW13325 Transfusion of Convalescent Plasma (Nonautologous) into Peripheral Vein, Percutaneous Approach, New Technology Group 5 (ICD-10-PCS; 2020-06-19)
PROC: 06HY33Z Insertion of Infusion Device into Lower Vein, Percutaneous Approach (ICD-10-PCS; 2020-06-19)
PROC: 0D9670Z Drainage of Stomach with Drainage Device, Via Natural or Artificial Opening (ICD-10-PCS; 2020-06-19)
PROC: 06HY33Z Insertion of Infusion Device into Lower Vein, Percutaneous Approach (ICD-10-PCS; 2020-06-19)
DX: A41.89 Other specified sepsis (principal); U07.1 COVID-19; J96.01 Acute respiratory failure with hypoxia; J12.89 Other viral pneumonia; N17.9 Acute kidney failure, unspecified; I50.32 Chronic diastolic (congestive) heart failure; Z66 Do not resuscitate; Z51.5 Encounter for palliative care; I25.10 Atherosclerotic heart disease of native coronary artery without angina pectoris; E78.5 Hyperlipidemia, unspecified; E66.01 Morbid (severe) obesity due to excess calories; R59.0 Localized enlarged lymph nodes; I70.1 Atherosclerosis of renal artery; G25.81 Restless legs syndrome; I44.7 Left bundle-branch block, unspecified; G47.33 Obstructive sleep apnea (adult) (pediatric); F32.9 Major depressive disorder, single episode, unspecified; I11.0 Hypertensive heart disease with heart failure; K08.89 Other specified disorders of teeth and supporting structures; E87.5 Hyperkalemia; Z95.5 Presence of coronary angioplasty implant and graft; Z78.1 Physical restraint status; Z87.891 Personal history of nicotine dependence; Z95.1 Presence of aortocoronary bypass graft; Z88.5 Allergy status to narcotic agent; Z88.8 Allergy status to other drugs, medicaments and biological substances; Z79.899 Other long term (current) drug therapy; Z79.02 Long term (current) use of antithrombotics/antiplatelets; Z79.84 Long term (current) use of oral hypoglycemic drugs; Z68.36 Body mass index [BMI] 36.0-36.9, adult; I73.9 Peripheral vascular disease, unspecified; Z79.82 Long term (current) use of aspirin
CPT/HCPCS: 36415; 36430; 36556; 36600; 51702; 70450; 71045; 71275; 80053; 81003; 81015; 82553; 82570; 82728; 82805; 83036; 83605; 83615; 83690; 83880; 83930; 83935; 84145; 84300; 84484; 85007; 85025; 85027; 85379; 86140; 86850; 86900; 86901; 87040; 87086; 87149; 87635; 87804; 93005; 94002; 94003; 94640; 94760; 96361; 96365; 96366; 96368; 96374; 96375; 99292; C9113; J0456; J0692; J0696; J1100; J1650; J1815; J1940; J2060; J2185; J2250; J2704; J3010; J3370; J3490; J7050; J7620; P9017; U0003